=== PATIENT | male | born 1955 | race Caucasian/White ===

== ENCOUNTER → 2016-11-27 | Day surgery (SDC) | payer OTHER ==
--- NOTE | 2016-02-04 15:42 | Anesthesiology Progress Note ---
Anesthesia Progress Note Date of Service Feb 04, 2016. Progress Notes Patient with recent cardiac stent placed 11/16/2015 (drug eluding stent to RCA; 99% occlusion to RCA on cardiac catheterization). Patient currently on Plavix and ASA. Patient is scheduled for screening colonoscopy 02/21/2016. Case was discussed with Dr. Doyle. Would need to wait 365 days from stent placement for elective procedure (screening colonoscopy) unless extenuating circumstances given increased perioperative risks. Clari Ashton PA-C
[2016-11-21 15:09] VITALS: Ht 180.3 cm; Wt 98.6 kg
[~2016-11-27] VITALS: Ht 180.3 cm; Wt 98.6 kg
[~2016-11-27] MED LIST: ASPEC81 PO; ATOR-26 PO; GLIP-197 PO; LIDOCAINE HCL 2% 2 ML VIAL (20MG/ML) ONE; LISI-729 PO; METF-384 PO; MIDAZOLAM HCL 1 MG/ML 2ML VIAL ONE; NTRSLP4 SL; ONDANSETRON INJ 2 MG/ML 2 ML VIAL ONE; PLV75 PO; PROPOFOL IV EMULSION 10 MG/ML 20 ML VIAL IV ONE; SODIUM CHLORIDE 0.9% 500ML 500 ML IV ONE
[2016-11-27 08:12] VITALS: TEMP 36.5
--- NOTE | 2016-11-27 08:35 | Endo History and Physical ---
History & Physical Date of Service: Nov 27, 2016. Chief Complaint: screening Referring Physician: Dr. Cleveland Rodriguez History of Present Illness 61 yo CM who presents for screening colonoscopy. Past Medical History Diabetes, Hypertension Past Surgical History Hx Cardiac Surgery: Yes (HEART CATH-1 STENT) Hx Internal Defibrillator: No Hx Pacemaker: No Hx Abdominal Surgery: No Hx of Implantable Prosthesis: No Hx Post-Op Nausea and Vomiting: No Hx Cancer Surgery: No Hx Thoracic Surgery: No Hx Orthopedic: No Hx Urinary Tract Surgery: Yes (VASECTOMY) Family History None Social History Smoking Status: Current Every Day Smoker Hx Substance Use: No Hx Alcohol Use: No Allergies Coded Allergies: No Known Allergies (Verified , 11/27/16) Current Medications Reported Home Medications Medications Dose Route/Sig Max Daily Dose Days Date Category Glipizide Er (Glipizide) 5 Mg Tab 0.5 Tab PO HS 11/21/16 Reported Zestril (Lisinopril) 5 Mg Tab 5 Mg PO QAM 02/04/16 Reported Glipizide Er (Glipizide) 5 Mg Tab 1 Tab PO QAM 90 02/04/16 Reported Lipitor (Atorvastatin Calcium) 80 Mg Tab 80 Mg PO QPM 02/04/16 Reported Clopidogrel (Clopidogrel Bisulfate) 75 Mg Tab 75 Mg PO QAM 90 11/18/15 Rx Aspirin EC Low Dose (Aspirin) 81 Mg Ectab 81 Mg PO QAM 90 11/18/15 Rx Nitrostat (Nitroglycerin) 0.4 Mg/1 Tab Subl 0.4 Mg SL UD PRN 15 11/18/15 Rx Glucophage (Metformin Hcl) 1,000 Mg Tab 1,000 Mg PO BID 11/16/15 Reported Vital Signs Weight (Kilograms): 98.64 Height (Feet): 5 Height (Inches): 11 Date Time Temp Pulse Resp B/P Pulse Ox O2 Delivery O2 Flow Rate FiO2 11/27/16 08:12 36.5 48 20 151/76 100 Room Air Physical Exam General Appearance: WD/WN, no apparent distress Respiratory/Chest: Auscultation: breath sounds normal Cardiovascular: Heart Auscultation: RRR Abdomen: Bowel Sounds: normal Inspection & Palpation: soft, non-distended, no tenderness, guarding & rebound Assessment and Plan Assessment: 61 yo CM who presents for screening colonoscopy. Plan: Proceed with colonoscopy.
--- NOTE | 2016-11-27 09:01 | Discharge Instructions ---
Endoscopy Patient Instructions Date / Procedure(s) Performed Nov 27, 2016. Colonoscopy Allergy Information Coded Allergies: No Known Allergies (Verified , 11/27/16) Discharge Date / Findings Nov 27, 2016. Colon polyp Internal hemorrhoids Medication Instructions Stopped Medication(s): stopped Plavix last Tuesday 11/21,Metformin stopped Sunday zohra,took ASA yesterday OK to resume all medications today as prescribed Reported Home Medications Medications Dose Route/Sig Max Daily Dose Days Date Category Glipizide Er (Glipizide) 5 Mg Tab 0.5 Tab PO HS 11/21/16 Reported Zestril (Lisinopril) 5 Mg Tab 5 Mg PO QAM 02/04/16 Reported Glipizide Er (Glipizide) 5 Mg Tab 1 Tab PO QAM 90 02/04/16 Reported Lipitor (Atorvastatin Calcium) 80 Mg Tab 80 Mg PO QPM 02/04/16 Reported Clopidogrel (Clopidogrel Bisulfate) 75 Mg Tab 75 Mg PO QAM 90 11/18/15 Rx Aspirin EC Low Dose (Aspirin) 81 Mg Ectab 81 Mg PO QAM 90 11/18/15 Rx Nitrostat (Nitroglycerin) 0.4 Mg/1 Tab Subl 0.4 Mg SL UD PRN 15 11/18/15 Rx Glucophage (Metformin Hcl) 1,000 Mg Tab 1,000 Mg PO BID 11/16/15 Reported Provider Instructions Activity Restrictions - No exercising or heavy lifting for 24 hours. - Do not drink alcohol the day of the procedure. - Do not drive a car or operate machinery until the day after the procedure. - Do not make any important decisions or sign important papers in 24 hours after the procedure. Following Day: - Return to full activity which may include returning to work/school. Diet Start your diet with liquids and light foods (jello, soup, juice, toast). Then eat your usual diet if not nauseated. Treatment For Common After Affects For mild abdominal pain, bloating, or excessive gas: - Rest - Eat lightly - Lie on right side Follow-Up Information Follow-up with Dr. Cleveland Rodriguez as scheduled Anesthesia Information What You Should Know You have had a procedure that required some medicine to reduce anxiety and discomfort. This treatment is called moderate sedation. After receiving the treatment, you may be sleepy, but you will be able to breathe on your own. The effects of the treatment may last for several hours. Follow these instructions along with Activity/Diet recommendations noted above: * Do NOT do anything where dizziness or clumsiness would be dangerous. * Rest quietly at home today, then you can be up and about tomorrow. * Have a responsible person stay with you the rest of today. * You may have had an I.V. today. If so, you may take the dressing off later today. Recommendations Call your doctor if: * Trouble breathing * Continuous vomiting for more than 24 hours * Temperature above 101 degrees * Severe abdominal pain or bloating * Pain not relieved by pain medicine ordered * There is increased drainage or redness from any incision * A large amount of rectal bleeding greater than 2-3 tablespoons. (If you had a polyp/s removed or have hemorrhoids, a small amount of blood - from the rectum is to be expected.) * You have any unanswered questions or concerns. IN THE EVENT OF A SERIOUS EMERGENCY, GO TO THE NEAREST EMERGENCY ROOM Your discharge instructions were prepared by provider Jose Elias Phipps. Patient Instructions Signature Page Cleveland Bowie Patient (or Guardian) Signature/Date: I have read and understand the instructions given to me by my caregivers. Caregiver/RN/Doctor Signature/Date: The above-named patient and/or guardian has received patient instructions on this date. + Original Patient Signature Page (only) stays with chart. Please make copy for patient.
--- NOTE | 2016-11-27 09:22 | Anesthesiology Progress Note ---
Anesthesia Post Op Note Date & Time Nov 27, 2016 at 09:21 Vital Signs Pain Intensity: 0 Vital Signs Past 12 Hours Date Time Temp Pulse Resp B/P Pulse Ox O2 Delivery O2 Flow Rate FiO2 11/27/16 09:19 53 18 117/75 95 Room Air 11/27/16 09:11 51 18 115/62 94 Room Air 11/27/16 09:04 56 18 109/62 94 Room Air 11/27/16 08:12 36.5 48 20 151/76 100 Room Air Notes Mental Status: alert / awake / arousable, participated in evaluation Pt Amnestic to Procedure: Yes Nausea / Vomiting: adequately controlled Pain: adequately controlled Airway Patency, RR, SpO2: stable & adequate BP & HR: stable & adequate Hydration State: stable & adequate Anesthetic Complications: no major complications apparent Pt doing well.
[2016-11-27 09:30] VITALS: BP 135/76; PULSE 50; O2SAT 97
--- NOTE | 2016-11-27 10:43 | GI REPORT ---
Procedure Date: 11/27/2016 8:40 AM Procedure: Colonoscopy Indications: Screening for colorectal malignant neoplasm Medicines: Monitored Anesthesia Care Complications: No immediate complications. Estimated Blood Loss: Estimated blood loss: none. Procedure: Pre-Anesthesia Assessment: - Prior to the procedure, a History and Physical was performed, and patient medications and allergies were reviewed. The patient's tolerance of previous anesthesia was also reviewed. The risks and benefits of the procedure and the sedation options and risks were discussed with the patient. All questions were answered, and informed consent was obtained. Prior Anticoagulants: The patient last took aspirin 1 day and Plavix (clopidogrel) 5 days prior to the procedure. ASA Grade Assessment: III - A patient with severe systemic disease. After reviewing the risks and benefits, the patient was deemed in satisfactory condition to undergo the procedure. After I obtained informed consent, the scope was passed under direct vision. Throughout the procedure, the patient's blood pressure, pulse, and oxygen saturations were monitored continuously. The scope was introduced through the anus and advanced to the terminal ileum. The colonoscopy was performed without difficulty. The patient tolerated the procedure well. The quality of the bowel preparation was good. The terminal ileum, the appendiceal orifice and the rectum were photographed. Findings: A 6 mm polyp was found in the descending colon. The polyp was sessile. The polyp was removed with a hot snare. Resection and retrieval were complete. Non-bleeding internal hemorrhoids were found during retroflexion. The hemorrhoids were small. Impression: - One 6 mm polyp in the descending colon, removed with a hot snare. Resected and retrieved. - Non-bleeding internal hemorrhoids. Recommendation: - Resume previous diet. - Continue present medications. - Repeat colonoscopy for surveillance based on pathology results. - Return to primary care physician as previously scheduled. Jose Elias Phipps DO 11/27/2016 8:59:54 AM This report has been signed electronically. Note Initiated On: 11/27/2016 8:40 AM I attest to the content of the Intraoperative Record and orders documented therein, exceptions below
== END | disposition home or self-care (01) ==
LOC: C.GI 07:46
PROVIDERS: ATTEND Internal Medicine
DX: Z12.11 Encounter for screening for malignant neoplasm of colon (principal); D12.4 Benign neoplasm of descending colon; K64.8 Other hemorrhoids; F17.200 Nicotine dependence, unspecified, uncomplicated; Z79.82 Long term (current) use of aspirin; Z79.899 Other long term (current) drug therapy

== ENCOUNTER → 2017-03-10 | Outpatient (CLI) | payer OTHER ==
[~2017-03-10] MED LIST changes: -LIDOCAINE HCL 2% 2 ML VIAL (20MG/ML) ONE; -MIDAZOLAM HCL 1 MG/ML 2ML VIAL ONE; -ONDANSETRON INJ 2 MG/ML 2 ML VIAL ONE; -PROPOFOL IV EMULSION 10 MG/ML 20 ML VIAL IV ONE; -SODIUM CHLORIDE 0.9% 500ML 500 ML IV ONE
[2017-03-10 11:03] LABS: HEMATOCRIT 48.5 % (42-52); MEAN CELL VOLUME 96.2 fL (80-100); MEAN CORPUSCULAR HEMOGLOBIN 31.5 pg (25-34); MEAN CORPUSCULAR HGB CONC 32.8 g/dl (32-36); MEAN PLATELET VOLUME 10.1 fL (7.4-10.4); PLATELET COUNT 251 K/uL (130-400); RED BLOOD COUNT 5.04 M/uL (4.7-6.1); WHITE BLOOD COUNT 10.52 K/uL (4.8-10.8)
[2017-03-10 11:14] LABS: ALT/SGPT 56 U/L (12-78); AST/SGOT 25 U/L (15-37); BLOOD UREA NITROGEN 21 mg/dl (7-18); BUN/CREATININE RATIO 17.2 (10-20); CALCIUM 8.8 mg/dl (8.5-10.1); CARBON DIOXIDE 27 mmol/L (21-32); CHLORIDE 106 mmol/L (98-107); GLUCOSE 154 mg/dl (70-99); POTASSIUM 4.5 mmol/L (3.5-5.1); SODIUM 138 mmol/L (136-145)
[2017-03-10 11:17] LABS: ALB/GLOB RATIO 1.3 (0.9-2); ALKALINE PHOSPHATASE 108 U/L (45-117); CHOLESTEROL 98 mg/dl (0-200); CHOLESTEROL/HDL RATIO 3.4; ESTIMATED AVERAGE GLUCOSE 169 mg/dl; HA1C FLAG Normal (Normal); HDL CHOLESTEROL 29 mg/dl; LDL CHOLESTEROL CALCULATED 43 mg/dl; TRIGLYCERIDES 131 mg/dl (0-150); VERY LOW DENSITY LIPOPROT CALC 26 mg/dl
[2017-03-10 11:35] LABS: RATIO 53.7 mcg/mg (0-30.0)
== END | disposition home or self-care (01) ==
LOC: C.LABBC 08:30
PROVIDERS: ATTEND Internal Medicine
DX: Z00.00 Encounter for general adult medical examination without abnormal findings (principal); E11.9 Type 2 diabetes mellitus without complications; E78.5 Hyperlipidemia, unspecified

== ENCOUNTER 2017-10-10 15:15 | Emergency (ER) | payer OTHER ==
[~2017-10-10] VITALS: Ht 180.3 cm; Wt 103.1 kg
[2017-10-10 15:25] VITALS: Ht 180.3 cm; Wt 103.1 kg
[2017-10-10] MEDS ORDERED: CLOP1TAB15 PO (16:00)
[2017-10-10] MEDS ORDERED: XYLOCAINE 1%/SOD BICARB 20 ML VIAL INFIL ONE (16:00)
[2017-10-10] MEDS ORDERED: DIPHTHERIA/TETANUS/PERTUSSIS 0.5 ML SYR/VIAL IM. ONE (16:00)
[2017-10-10] MEDS ORDERED: GLC5 PO ×2 (16:00)
[2017-10-10] MEDS ORDERED: LSN5 PO (16:00)
[2017-10-10] MEDS ORDERED: ASPI81TA28 PO (16:01)
[2017-10-10] MEDS ORDERED: NTRGSL/4 UT (16:01)
--- NOTE | 2017-10-10 16:24 | EMERGENCY ROOM VISIT NOTE ---
History First contact with patient: 15:29 Chief Complaint: LACERATION/CUT (SUT/DERMABOND) Stated Complaint: LEFT ARM LACERATION History of Present Illness The patient is a 62 year old male who presents to the Emergency Room with complaints of a left forearm laceration. The patient accidentally cut his arm with a miter saw at work. The injury occurred at approximately 3 PM, or one half hour prior to arrival. The patient is uncertain of his last tetanus immunization. He denies any loss of function, paresthesias or numbness of the left upper extremity. The patient is [id number]. Review of Systems 6 system review was performed and was negative except for pertinent positives and negatives as indicated in history of present illness Past Medical/Surgical History Medical Problems: (1) Acute inferior myocardial infarction (2) No active medical problems Family History FH: dialysis FH: kidney disease FHx: heart disease Social History Smoking Status: Current Every Day Smoker Marital Status: single Housing Status: lives with family Occupation Status: employed Current/Historical Medications Scheduled Aspirin (Aspirin Ec), 81 MG PO QAM Atorvastatin (Lipitor), 80 MG PO QPM Clopidogrel (Plavix), 75 MG PO QAM Glipizide (Glipizide), 5 MG PO QAM Glipizide (Glipizide), 2.5 MG PO HS Lisinopril (Lisinopril), 5 MG PO QAM Metformin Hcl (Glucophage), 1,000 MG PO BID Scheduled PRN Nitroglycerin (Nitrostat), 0.4 MG UT UD PRN for Chest Pain Physical Exam Vital Signs Date Time Temp Pulse Resp B/P (MAP) Pulse Ox O2 Delivery O2 Flow Rate FiO2 18 15:25 36.6 72 16 128/72 98 Room Air Physical Exam CONSTITUTIONAL: Healthy and well nourished. Alert and oriented X 3 with positive affect. HEENT: Normocephalic, atraumatic. Pupils equal, round and reactive. NECK: Full active range of motion without discomfort. MUSCULOSKELETAL: Examination of the dorsal and distal left forearm region shows a 3 cm linear laceration without active bleeding or hematoma formation. Patient has good extensor tendon effort, and the laceration does not appear to extend deep into the forearm. Capillary refill of the fingers is less than 2 seconds. INTEGUMENTARY: No rash or other significant dermatologic conditions noted. NEUROLOGIC: No focal neurologic deficits noted. Left hand and fingers are sensory intact. Medical Decision & Procedures Procedure Laceration repair was performed by our physician animal care assistant student under my direct supervision. The patient also provided verbal consent for laceration repair under local anesthesia. Using buffered 1% lidocaine without epinephrine , good local anesthesia was administered. The wound was then peripherally cleansed with iodine, then irrigated with normal saline. Exploration of the wound does not show any penetration into the underlying musculature, tendons or bone. The wound was then approximated using 4-0 nylon simple interrupted sutures. A bacitracin dressing was applied. ED Course Patient history and physical exam were performed. Nurse's notes were reviewed. Vital signs were reviewed and were normal. Laceration repair was performed under local anesthesia. The patient was also administered Adacel IM. The patient was provided additional verbal and written wound care instructions. Ice and elevation for swelling. Tylenol as needed for pain. Suture removal in 12-14 days, returning sooner for any signs of wound infection. The patient was happy with plan of care, voiced understanding of all discharge instructions, and denied any pain at the time of discharge. Medical Decision Medication Reconcilliation Current Medication List: was personally reviewed by tn Blood Pressure Screening Patient's blood pressure: Normal blood pressure Impression Primary Impression: Laceration of left forearm Additional Impression: Work related injury Departure Information Dispostion Home / Self-Care Forms HOME CARE DOCUMENTATION FORM, IMPORTANT VISIT INFORMATION Patient Instructions My [facility] Additional Instructions Keep wound clean and dry. Do not allow any crusting or dried blood to accumulate on sutures. If this occurs, use a 1:1 solution of hydrogen peroxide/ water on a Q-tip to clean the wound. Use an antibiotic ointment for 3-4 days, then let wound dry. Suture removal in 12-14 days. Return sooner for any signs of infection (increasing redness, swelling, drainage). Ice and elevate for swelling and pain. Tylenol 1000 mg every 6 hrs if needed for pain. Problem Qualifiers Primary Impression: Laceration of left forearm Encounter type: initial encounter Qualified Codes: S51.812A - Laceration without foreign body of left forearm, initial encounter
[2017-10-10 16:39] VITALS: BP 128/72; PULSE 72; TEMP 36.6; O2SAT 98
== END 2017-10-10 16:40 | disposition home or self-care (01) ==
LOC: C.EDB 15:16 → C.EDD 16:40
DX: S51.812A Laceration without foreign body of left forearm, initial encounter (principal); W27.0XXA Contact with workbench tool, initial encounter; Y99.0 Civilian activity done for income or pay; Y92.89 Other specified places as the place of occurrence of the external cause; Y93.89 Activity, other specified; I25.2 Old myocardial infarction; F17.210 Nicotine dependence, cigarettes, uncomplicated; Z79.82 Long term (current) use of aspirin; Z79.84 Long term (current) use of oral hypoglycemic drugs; Z79.899 Other long term (current) drug therapy; Z23 Encounter for immunization

== ENCOUNTER 2017-10-24 07:15 | Emergency (ER) | payer OTHER ==
[~2017-10-24] VITALS: Ht 180.3 cm; Wt 104.9 kg
[~2017-10-24 07:15] MED LIST changes: -ASPEC81 PO; +ASPI81TA28 PO; +CLOP1TAB15 PO; +GLC5 PO; -GLIP-197 PO; -LISI-729 PO; +LSN5 PO; +NTRGSL/4 UT; -NTRSLP4 SL; -PLV75 PO
[2017-10-24 07:28] VITALS: BP 174/82; PULSE 66; TEMP 36.5; O2SAT 99; Ht 180.3 cm; Wt 104.9 kg
--- NOTE | 2017-10-24 07:41 | EMERGENCY ROOM VISIT NOTE ---
ED Visit Note First contact with patient: 07:32 CHIEF COMPLAINT: Suture removal This patient returns to the ED today for removal of sutures that were placed 14 days ago. There has been no swelling, or drainage from the wound. The patient feels like the laceration is healing well. He does note minimal erythema on the forearm surrounding the sutures which has been present since the placement. REVIEW OF SYSTEMS: A complete 6-point Review of Systems was discussed with the patient, with pertinent positives and negatives listed in the History of Present Illness. All remaining Review of Systems questions can be considered negative unless otherwise specified. PMH: The patient is healthy; there is no significant medical or surgical history. SOCIAL HISTORY: Patient lives at home. PHYSICAL EXAM: Vital Signs: Reviewed Nurse's notes. There is a sutured wound on the left forearm with no signs of infection. There is no swelling, or tenderness. Minimal erythema surrounding the sutures. EMERGENCY DEPARTMENT COURSE: The sutures were removed without any difficulty and there was no separation of the wound edges. I suspect that the erythema is likely skin irritation. There is no purulence. There is no tenderness. I did inform the patient to please watch and if the redness is to progress or not any better he is to return or follow with the family doctor for potential initiation of antibiotics in the event that it could be cellulitis. The wound was covered. He was discharged. He is to follow with his family doctor regarding his elevated blood pressure here today. Problem List Medical Problems: (1) No active medical problems Status: Chronic Current/Historical Medications Scheduled Aspirin (Aspirin Ec), 81 MG PO QAM Atorvastatin (Lipitor), 80 MG PO QPM Clopidogrel (Plavix), 75 MG PO QAM Glipizide (Glipizide), 5 MG PO QAM Glipizide (Glipizide), 2.5 MG PO HS Lisinopril (Lisinopril), 5 MG PO QAM Metformin Hcl (Glucophage), 1,000 MG PO BID Scheduled PRN Nitroglycerin (Nitrostat), 0.4 MG UT UD PRN for Chest Pain Allergies Coded Allergies: No Known Allergies (Verified , 10/24/17) Vital Signs Date Time Temp Pulse Resp B/P (MAP) Pulse Ox O2 Delivery O2 Flow Rate FiO2 10/24/17 07:28 36.5 66 18 174/82 99 Room Air Departure Information Impression Primary Impression: Encounter for removal of sutures Dispostion Home / Self-Care Condition GOOD Referrals No Doctor, Assigned (PCP) Patient Instructions [facility] Additional Instructions You may resume normal activities. I do recommend watching the blood pressure as it is elevated here today. Please call your family doctor to schedule follow-up. Please keep the wound dry. Please watch for worsening redness. If this persists an antibiotic may be necessary. Please either return or call your family doctor. Please return with any new/concerning symptoms.
== END 2017-10-24 07:50 | disposition home or self-care (01) ==
LOC: C.EDB 07:16
DX: S51.812D Laceration without foreign body of left forearm, subsequent encounter (principal); X58.XXXD Exposure to other specified factors, subsequent encounter; Z79.82 Long term (current) use of aspirin; Z79.84 Long term (current) use of oral hypoglycemic drugs

== ENCOUNTER 2019-11-05 07:10 | Observation (INO) ==
[2019-11-05] MEDS ORDERED: SODIUM CHLORIDE 0.9% 1000ML 1,000 ML IV SCH (07:30)
[2019-11-05 07:38] LABS: Basophils # (auto) 0.02 K/uL (0-0.2); Basophils % (auto) 0.2 %; Eosinophils % (auto) 0.8 %; Hematocrit (blood only) 46.6 % (42-52); Hemoglobin 15.5 g/dL (14.0-18.0); Immature Granulocytes # (auto) 0.03 K/uL (0.00-0.02); Immature Granulocytes % (auto) 0.2 %; Lymphocytes # (auto) 0.59 K/uL (1.2-3.4); Lymphocytes % (auto) 4.6 %; Mean Corpuscular Hgb Conc 33.3 g/dL (32-36); Mean Corpuscular Volume 90.1 fL (80-100); Monocytes # (auto) 0.28 K/uL (0.11-0.59); Monocytes % (auto) 2.2 %; Neutrophils # (auto) 11.93 K/uL (1.4-6.5); Platelet Count 173 K/uL (130-400); RDW Coefficient of Variation 14.7 % (11.5-14.5); RDW Standard Deviation 48.9 fL (36.4-46.3); Red Blood Count 5.17 M/uL (4.7-6.1); White Blood Count 12.95 K/uL (4.8-10.8)
--- NOTE | 2019-11-05 07:42 | XRay Report ---
SINGLE VIEW CHEST CLINICAL HISTORY: Generalized weakness. FINDINGS: An AP, portable, upright chest radiograph is compared to study dated 03/10/2018. The examina tion is degraded by portable technique and patient rotation. The heart is enlarged. The pulmonary v asculature is noncongested. There is chronic elevation of the left hemidiaphragm with associated atel ectasis. The lungs and pleural spaces are otherwise clear. No pneumothorax is seen. The skeletal stru ctures are osteopenic. The bony thorax is grossly intact. IMPRESSION: Cardiomegaly with no acute cardiopulmonary abnormality. ACT 112: Negative or not required by law. Electronically signed by: Sesar Carter M.D. 11/05/2019 7:41 AM
[2019-11-05 07:47] LABS: INR 1.3 (0.9-1.1); Prothrombin Time 13.7 Seconds (9.0-12.0)
[2019-11-05 07:57] LABS: Alanine Aminotransferase 36 U/L (12-78); Albumin Level 3.3 gm/dl (3.4-5.0); Aspartate Aminotransferase 18 U/L (15-37); BUN Creatinine Ratio 19.8 (10-20); Blood Urea Nitrogen 26 mg/dl (7-18); Calcium 8.7 mg/dl (8.5-10.1); Carbon Dioxide 24 mmol/L (21-32); Chloride 104 mmol/L (98-107); Creatinine Clr Calc Pharmacy 70.9 ml/min; Est GFR (African American) 67.2; Est GFR (Non-African American) 57.9; Potassium 4.9 mmol/L (3.5-5.1); Sodium 136 mmol/L (136-145)
[2019-11-05 08:05] LABS: Alkaline Phosphatase 122 U/L (45-117); Bilirubin,Total 0.5 mg/dl (0.2-1); Globulin 3.2 gm/dl (2.5-4.0); Glucose 335 mg/dl (70-99); Lipase 358 U/L (73-393); Total Protein 6.5 gm/dl (6.4-8.2); Troponin I < 0.015 ng/ml (0-0.045)
[2019-11-05] MEDS ORDERED: IOVERSOL 100ml IV PRN (08:12)
[2019-11-05 08:19] LABS: Beta-Hydroxybutyrate 1.29 mg/dl (0.2-2.81)
--- NOTE | 2019-11-05 08:32 | CT Scan Report ---
CT abd pelvis IV con only CLINICAL HISTORY: Nausea, vomiting, diarrhea COMPARISON STUDY: None. TECHNIQUE: The patient was scanned in a dynamic helical fashion during intravenous administration of 92 cc of Optiray 320 A dose lowering technique was utilized adhering to the principles of ALARA. CT DOSE: 1023.91 mGy.cm FINDINGS: Lower chest: There is elevation of the left hemidiaphragm. There are minor right basilar atelectatic changes Liver: The contrast-enhanced liver is normal in size, contour, and attenuation. There is no intrahepa tic biliary ductal dilatation. The hepatic veins and portal veins are patent. Gallbladder: Unremarkable. Spleen: Normal in size and attenuation. Pancreas: Unremarkable. Adrenal glands: Unremarkable. Kidneys: There is symmetric renal cortical enhancement. The kidneys are normal in size without hydron ephrosis. Bowel: There are no transition zones indicate bowel obstruction. There are borderline dilated jejunal loops with borderline wall thickening. An enteritis cannot be excluded. There is no evidence of acut e appendicitis. There is no evidence of acute diverticulitis. Peritoneum: There is no intraperitoneal free air or abdominal ascites. There are fat-containing ingui nal hernias versus lipomatous inguinal canals Vasculature: There is ectasia of the infrarenal abdominal aorta which measures 26 mm in diameter Adenopathy: None. Pelvic viscera: The bladder, and pelvic viscera are unremarkable. Skeletal structures: No destructive osseous lesions are seen. IMPRESSION: 1. No evidence of bowel obstruction. No evidence of free air 2. No evidence of acute appendicitis. No evidence of acute diverticulitis 3. Borderline dilated jejunal loops with borderline wall thickening. An enteritis cannot be excluded. ACT 112: Negative or not required by law. Electronically signed by: Minh Velasquez M.D. 11/05/2019 8:31 AM
[2019-11-05 08:39] LABS: Appearance Urine Clear (Clear); Bacteria Urine Automated Negative (Negative); Bilirubin Urine Negative (Negative); Blood Urine Negative (Negative); Cast Urine Automated 0 /lpf (0-5); Color Urine Yellow; Epithelial Cell Urine Auto 0-5 /lpf (0-5); Glucose Urine UA 3+ (Negative); Ketones Urine Negative (Negative); Leukocyte Esterase Urine Negative (Negative); Nitrite Urine Negative (Negative); Protein Urine Trace (Negative); RBC Urine Automated 0-4 /hpf (0-4); Specific Gravity Urine 1.031 (1.000-1.030); Urobilinogen Urine Negative (Negative); WBC Urine Automated 0 /hpf (0-5)
--- NOTE | 2019-11-05 10:59 | History & Physical Report ---
Date of Service November 05, 2019 Assessment & Plan (1) Diarrhea: 64-year-old male was admitted on 05 November 2019 for acute diarrhea, dehydration, and hyperglycemia. Diarrhea, dehydration: Acute onset overnight. Non-bloody diarrhea. Denies associated chest or abdominal pain. Non-tender abdominal exam. Most likely a viral enteritis. Does have a little tachypnea without overt pulmonary findings. - In ED, afebrile, initially tachycardic and tachypneic, normotensive, normal room SpO2. WBC 13, electrolytes okay. UA SG is 1.031. pCXR read as cardiomegaly only (with some chronic findings). CT a/p read as possible enteritis without other acute findings. - In ED, treated with 1 L normal saline. - Will continue with judicious IVF repletion given his heart history. Continue p.o. intake as well, though discussed with patient he will need to modify his p.o. intake in the longer term given his known heart failure. Recheck labs in a.m. If does well, perhaps can be d/c in time for his cardiology appt around 11 am. Elevated creatinine, Likely CKD: Not listed in his PMH, though admit creatinine 1.31. September 2019 comparisons around 1.5. Is on Lisinopril. Diabetes type 2, hyperglycemia: Reportedly previously declined outpatient insulin. At home is on metformin and glipizide. 04Feb HbA1c 9.8. ED random glucose 335. Bicarb 24, anion gap 8. - Placed on insulin sliding scale for now. Needs continued diabetic education. Elevated alk phos: Admit alk phos 122, similar to last month. Remaining LFTs normal. No reports of RUQ pain. Monitor for now. Ongoing medical issues: - HTN, HLD, CAD, dilated cardiomyopathy, inferior STEMI with TALISHA: Echocardiogram on 07Oct2019 noted EF 20-25%, severe LVSF, left ventricular global hypokinesis, amongst other findings. Continue home aspirin, atorvastatin, lisinopril, metoprolol. - Persistent atrial fibrillation / flutter: Underwent cardioversion on . ED EKG was A. fib, rate 101. Continue home Xarelto and metoprolol. Code status: Full code. Diet: Heart healthy, low-sodium, diabetic type II. DVT prophy: Xarelto. PT/OT: Deferred. Disbo: Admit to [facility] for observation. (2) Dehydration: (3) Elevated serum creatinine: (4) Diabetes mellitus, type II: (5) Hyperglycemia due to type 2 diabetes mellitus: (6) Elevated alkaline phosphatase level: (7) Hypertension: (8) Dyslipidemia: (9) Coronary artery disease: (10) Dilated cardiomyopathy: (11) History of ST elevation myocardial infarction (STEMI): (12) Atrial fibrillation: History of Present Illness Primary Care Provider: NO PCP 64-year-old male states overnight he developed the acute onset of some nausea, dry heaves, and 4-5 bouts of watery non-bloody diarrhea. Yesterday he says he was asymptomatic. He denies any known recent sick contacts, recent travel, antibiotic use, or changes in his diet. Very early this morning he says he felt a little short of breath with all the symptoms but that has since resolved. Denies any chest pain throughout this time. At times he says both of his legs feel little numb but that also has improved. He does feel like he is a little dehydrated at present. Otherwise, denies any other acute concerns. As a side note, he does wonder when he may have gone back into A. fib after his recent cardioversion on October 27. He also says that he only controls his diabetes with p.o. meds and has never taken insulin. Lastly, he says he has a planned appointment with Dr. Sheppard (cardiology) for tomorrow morning around 11 AM and would like to be able to keep that appointment. - Past medical history includes hypertension, hyperlipidemia, coronary disease, dilated cardiomyopathy, inferior STEMI, persistent atrial fibrillation, diabetes type 2, rhabdomyolysis, tubular adenoma. - Past surgical history includes vasectomy, colonoscopy, and cardiac stenting. - Social history includes smoking 1 pack/day for over 40 years. Denies alcohol use. Lives at home with family. Works at [employer]. Allergies Allergy/AdvReac Type Severity Reaction Status Date / Time No Known Allergies Allergy Verified 11/05/19 08:05 Home Medications Home Medications Medication Instructions Recorded Confirmed Type Lactobacillus 1 cap PO QDB cap 04/07/19 11/05/19 History acidophilus-Bifidobac.animalis 31 billion cell capsule aspirin 81 mg tablet,delayed 81 mg PO QDB #30 tab 04/07/19 11/05/19 History release blood-glucose meter #1 ea 04/07/19 10/21/19 History metformin 1,000 mg tablet 1,000 mg PO BIDM #180 tab 04/07/19 11/05/19 History nitroglycerin 0.4 mg sublingual 0.4 mg SL Q5M PRN #25 tab 04/07/19 11/05/19 History tablet blood sugar diagnostic #50 ea 09/16/19 10/21/19 Rx lancets 30 gauge #300 ea 09/16/19 10/21/19 Rx Xarelto 20 mg PO QDD 10/23/19 11/05/19 History metoprolol succinate 50 mg PO QDB 10/23/19 11/05/19 History glipizide 10 mg tablet 10 mg PO BID #60 tab 10/30/19 11/05/19 Rx atorvastatin 80 mg PO QDD 11/05/19 11/05/19 History lisinopril 5 mg PO QDB 11/05/19 11/05/19 History metoprolol succinate 25 mg PO QDD 11/05/19 11/05/19 History Past Med/Surg History Medical History Atrial fibrillation dx 08/2019 CHF (congestive heart failure) EF 20-25% Coronary artery disease 2016 (stent x1) Diabetes mellitus, type II Dilated cardiomyopathy Dyslipidemia Hypertension Myocardial infarct Palpitation Surgical History History of cardiac cath 2016 (stent x 1) History of colonoscopy Hx of vasectomy Family History Father Myocardial infarction Denies family history of Ovarian cancer Prostate cancer Breast cancer Lung cancer Colorectal cancer Stroke Social History Preferred Language: Monegasque Communication Ability: Effective Visual Impairment: No Limitations Hearing Ability: Normal Cemetery Warden Required: No Beliefs That Will Affect Care: None Current Living Situation: Parent current occupational status: employed Other Information That Helps Us Care for You: No Feels Safe at Home: Yes Safety Concerns: Feels Safe At This Time Smoking Status: Current every day smoker Tobacco Type: cigarettes ; Age Started Using Tobacco: 19 ; packs per day: 1 ; Cigarettes Per Day: 20 ; Second Hand Exposure: Yes ; Hx Alcohol Use: No Hx Substance Use: Yes substance use type: marijuana Substance Use Type Other:: MARIJUANA A FEW TIMES PER WEEK Last Used Substance: Days (ago) Review of Systems Review of Systems: Constitutional: Denies fevers, chills, focal weakness Eyes: Denies any visual loss or diplopia ENT: Denies any ear/nose/throat pain or difficulty speaking or swallowing Respiratory: Transient dyspnea and dry cough. Cardiovascular: Denies any chest pain or feeling of edema Gastrointestinal: Positive nausea, dry heaves, and diarrhea. Denies abdominal pain. Musculoskeletal: Denies any acute extremity pains, myalgias, or focal weakness Skin: Denies any known acute rashes or lesions Neuro: Denies any headache, acute focal weakness or numbness, or difficulties with speech or swallow. Physical Exam Physical Exam: GENERAL: Awake, alert, well-appearing, in no acute distress HENT: Normocephalic, atraumatic. Oropharynx has dry oral mucous membranes. EYES: Normal conjunctiva. Sclera non-icteric. NECK: Inspection normal. Supple and full ROM. No nuchal rigidity. CARDIAC: +S1S2 irregularly irregular, no murmurs. RESPIRATORY: Clear to auscultation. No wheezes or rales. Normal respiratory effort. No present cough in room GI: +BS, soft, non-distended. No tenderness to palpation. No rebound or guarding. EXTREMITIES: No pedal edema or calf tenderness. Moving all extremities naturally and easily. Some chronic skin changes over his bilateral shins. NEURO: No gross neuro deficits. Constitutional: WD/WN, vitals as above Eyes: normal visual narvaez by confrontation and + anicteric sclerae Neck: normal visual inspection and trachea midline Respiratory: normal respiratory effort, lungs clear to auscultation Cardiovascular: Rate/Rhythm: + irregularly irregular Gastrointestinal (Abdomen): Inspection/Auscultation: abdomen not distended Percussion/Palpation: abdomen soft; abdomen nontender Musculoskeletal: Head/Neck/Chest: normocephalic and head atraumatic Neg for peripheral LE edema, + pedal pulses Skin: no rashes, warm and dry Neurologic: awake; not confused Speech / Cognition: normal speech Psychiatric: A+Ox3, euthymic affect Lymphatic: Exam as done by Pati Menendez DO Results & Data Vital Signs (Past 12 Hours) Vital Signs Temp Pulse Resp BP Pulse Ox 11/05/19 10:30 103 H 30 H 99/67 L 97 11/05/19 10:04 101 H 30 H 123/80 96 11/05/19 09:30 101 H 28 H 118/63 98 11/05/19 08:43 98 H 28 H 112/68 95 11/05/19 07:20 97 11/05/19 07:16 36.6 C 115 H 30 H 110/86 98 11/05/19 07:13 103 H 21 110/86 Laboratory Results 11/05/19 11/05/19 11/05/19 Range/Units 09:18 08:25 07:28 WBC 12.95 H (4.8-10.8) K/uL RBC 5.17 (4.7-6.1) M/uL Hgb 15.5 (14.0-18.0) g/dL Hct 46.6 (42-52) % MCV 90.1 (80-100) fL MCH 30.0 (25-34) pg MCHC 33.3 (32-36) g/dL RDW Std Deviation 48.9 H (36.4-46.3) fL RDW Coeff of Bety 14.7 H (11.5-14.5) % Plt Count 173 (130-400) K/uL MPV 10.0 (7.4-10.4) fL Immature Gran % (Auto) 0.2 % Neut % (Auto) 92.0 % Lymph % (Auto) 4.6 % [place] % (Auto) 2.2 % Eos % (Auto) 0.8 % Baso % (Auto) 0.2 % Immature Gran # (Auto) 0.03 H (0.00-0.02) K/uL Neut # (Auto) 11.93 H (1.4-6.5) K/uL Lymph # (Auto) 0.59 L (1.2-3.4) K/uL [place] # (Auto) 0.28 (0.11-0.59) K/uL Eos # (Auto) 0.10 (0-0.5) K/uL Baso # (Auto) 0.02 (0-0.2) K/uL PT (9.0-12.0) Seconds INR (0.9-1.1) Sodium (136-145) mmol/L Potassium (3.5-5.1) mmol/L Chloride (98-107) mmol/L Carbon Dioxide (21-32) mmol/L Anion Gap (3-11) BUN (7-18) mg/dl Creatinine (0.6-1.4) mg/dl Est Cr Clr Drug Dosing ml/min Est GFR ( Amer) Est GFR (Non-Af Amer) BUN/Creatinine Ratio (10-20) Glucose (70-99) mg/dl POC Glucose 280 H (70-99) mg/dl Calcium (8.5-10.1) mg/dl Total Bilirubin (0.2-1) mg/dl AST (15-37) U/L ALT (12-78) U/L Alkaline Phosphatase (45-117) U/L Troponin I (0-0.045) ng/ml Total Protein (6.4-8.2) gm/dl Albumin (3.4-5.0) gm/dl Globulin (2.5-4.0) gm/dl Albumin/Globulin Ratio (0.9-2) Lipase (73-393) U/L Beta-Hydroxybutyric Acd (0.2-2.81) mg/dl Urine Color Yellow Urine Appearance Clear (Clear) Urine pH 5.0 (4.5-7.5) Ur Specific [place] 1.031 H (1.000-1.030) Urine Protein Trace H (Negative) Urine Glucose (UA) 3+ H (Negative) Urine Ketones Negative (Negative) Urine Blood Negative (Negative) Urine Nitrite Negative (Negative) Urine Bilirubin Negative (Negative) Urine Urobilinogen Negative (Negative) Ur Leukocyte Esterase Negative (Negative) Urine WBC (Auto) 0 (0-5) /hpf Urine RBC (Auto) 0-4 (0-4) /hpf U Hyaline Cast (Auto) 0 (0-5) /lpf U Epithel Cells (Auto) 0-5 (0-5) /lpf Urine Bacteria (Auto) Negative (Negative) 11/05/19 11/05/19 Range/Units 07:28 07:28 WBC (4.8-10.8) K/uL RBC (4.7-6.1) M/uL Hgb (14.0-18.0) g/dL Hct (42-52) % MCV (80-100) fL MCH (25-34) pg MCHC (32-36) g/dL RDW Std Deviation (36.4-46.3) fL RDW Coeff of Bety (11.5-14.5) % Plt Count (130-400) K/uL MPV (7.4-10.4) fL Immature Gran % (Auto) % Neut % (Auto) % Lymph % (Auto) % [place] % (Auto) % Eos % (Auto) % Baso % (Auto) % Immature Gran # (Auto) (0.00-0.02) K/uL Neut # (Auto) (1.4-6.5) K/uL Lymph # (Auto) (1.2-3.4) K/uL [place] # (Auto) (0.11-0.59) K/uL Eos # (Auto) (0-0.5) K/uL Baso # (Auto) (0-0.2) K/uL PT 13.7 H (9.0-12.0) Seconds INR 1.3 H (0.9-1.1) Sodium 136 (136-145) mmol/L Potassium 4.9 (3.5-5.1) mmol/L Chloride 104 (98-107) mmol/L Carbon Dioxide 24 (21-32) mmol/L Anion Gap 8.0 (3-11) BUN 26 H (7-18) mg/dl Creatinine 1.31 (0.6-1.4) mg/dl Est Cr Clr Drug Dosing 70.9 ml/min Est GFR ( Amer) 67.2 Est GFR (Non-Af Amer) 57.9 BUN/Creatinine Ratio 19.8 (10-20) Glucose 335 H* (70-99) mg/dl POC Glucose (70-99) mg/dl Calcium 8.7 (8.5-10.1) mg/dl Total Bilirubin 0.5 (0.2-1) mg/dl AST 18 (15-37) U/L ALT 36 (12-78) U/L Alkaline Phosphatase 122 H (45-117) U/L Troponin I < 0.015 (0-0.045) ng/ml Total Protein 6.5 (6.4-8.2) gm/dl Albumin 3.3 L (3.4-5.0) gm/dl Globulin 3.2 (2.5-4.0) gm/dl Albumin/Globulin Ratio 1.0 (0.9-2) Lipase 358 (73-393) U/L Beta-Hydroxybutyric Acd 1.29 (0.2-2.81) mg/dl Urine Color Urine Appearance (Clear) Urine pH (4.5-7.5) Ur Specific [place] (1.000-1.030) Urine Protein (Negative) Urine Glucose (UA) (Negative) Urine Ketones (Negative) Urine Blood (Negative) Urine Nitrite (Negative) Urine Bilirubin (Negative) Urine Urobilinogen (Negative) Ur Leukocyte Esterase (Negative) Urine WBC (Auto) (0-5) /hpf Urine RBC (Auto) (0-4) /hpf U Hyaline Cast (Auto) (0-5) /lpf U Epithel Cells (Auto) (0-5) /lpf Urine Bacteria (Auto) (Negative) Medications Administered Ioversol (Optiray 320 100ml) 93 ml IV ONCE PRN PRN Reason: Interaction Checking Stop: 11/09/19 08:11 Last Admin: 11/05/19 08:13 Dose: 93 ml Documented by: [id number] Discontinued Medications Sodium Chloride (Nss 1000ml) 1,000 mls @ 999 mls/hr IV .Q1H1M KOFFI Stop: 11/05/19 08:30 Last Infusion: 11/05/19 08:08 Dose: 0 mls/hr Documented by: [id number] Admin: 11/05/19 07:30 Dose: 999 mls/hr Documented by: [id number] Code Status & VTE Plan Code Status Full code VTE Prophylaxis Plan VTE Prophylaxis will be ordered: Yes Supervising Physician Co-Signing Physician Notes Pt seen and examined by me. Denies chest pain or SOB. Tolerating PO without issue recently, but did have dry heaves at one point. Diarrhea has resolved, but still feeling unwell overall. Agree with HPI/ROS as noted by resident See above for my exam in PE section Agree with plan as outlined above Dehydration related to viral GE Monitor on gentle IVF to avoid fluid overload Pt states recent hx of short course of diuretic end of Sep/beginning of October due to LE swelling. He lost 10 lbs with this. He is to have f/u for this with Dr. Sheppard on 11/05 at 11a and would like to make this appt if d/c'd. No chronic diuretic use with EF 20-25% SSI PRN, has decline outpt use of insulin in the past Cardioversion on 10/27, but now back in afib, monitor Andrés Resident Activity Tracking Resident Involvement: Resident Care Provided Care Provided: Adult Hospital Medicine
[2019-11-05] MEDS ORDERED: DEXTROSE 50% 50 ML SYRINGE IV PRN (12:22)
[2019-11-05] MEDS ORDERED: GLUCOSE 10 TABS/TUBE PO PRN (12:22)
[2019-11-05] MEDS ORDERED: CARBOHYDRATES FOR HYPOGLYCEMIA PO PRN (12:22)
[2019-11-05] MEDS ORDERED: GLUCOSE 40% GEL 15 GM TUBE PO PRN (12:22)
[2019-11-05] MEDS ORDERED: NITROGLYCERIN SL 0.4 MG/TAB TAB SL PRN (12:22)
[2019-11-05] MEDS ORDERED: GLUCAGON FOR INJ 1 MG VIAL SQ PRN (12:22)
[2019-11-05] MEDS ORDERED: ONDANSETRON INJ 2 MG/ML 2 ML VIAL IV PRN (12:22)
[2019-11-05] MEDS: LACTATED RINGER'S 1,000 ML IV SCH (12:30)
--- NOTE | 2019-11-05 12:48 | Emergency Department Note ---
Entered by Deanne Lopez acting as a scribe for History of Present Illness General Chief complaint: Syncope (Near Syncope) Stated complaint: syncope Time Seen by Provider: 11/05/19 07:10 Source: patient Mode of arrival: EMS History of Present Illness Onset (ago): hour(s) (0600 this morning) Location: head (near syncope) Severity: similar to prior episodes Pain Consistency: + other (episode) Quality: + other (near syncope) Relieved By: + rest Associated symptoms: + diaphoresis, + nausea/vomiting (Positive nausea. Negative vomiting. ), + shortness of breath and + other (Positive light headed, diarrhea, extrmeity weakness. Negative abdominal pain, dysuria.); no chest pain and no syncope Treatments prior to arrival: other (Nitroglycerin) The patient is a 64 year old male presenting to the Emergency Department via EMS complaining of an episode of near syncope occurring at 0600 this morning. The patient reports that he woke up, went to the bathroom and felt like he was going to lose consciousness. He states that he was lighted and short of breath at that time so he went and sat on his bed to rest. He explains that resting resolved his shortness of breath and that he didnt lose consciousness. He notes that he then began to dry heave and felt nauseous. He adds that all of his extremities feel weak. The patient reports that he woke up throughout the night 4 times and experienced diarrhea. He states that his shortness of breath was similar to what he experienced in 2015 when he had a heart attack. 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 He notes that he smokes cigarettes daily and has a chronic cough. He adds that he hasnt been around any individuals who are sick. The patient denies vomiting, chest pain, abdominal pain, dysuria and recent travel. Home Medications Home Medications Medication Instructions Recorded Confirmed Type Lactobacillus 1 cap PO QDB cap 04/07/19 11/05/19 History acidophilus-Bifidobac.animalis 31 billion cell capsule aspirin 81 mg tablet,delayed 81 mg PO QDB #30 tab 04/07/19 11/05/19 History release blood-glucose meter #1 ea 04/07/19 10/21/19 History metformin 1,000 mg tablet 1,000 mg PO BIDM #180 tab 04/07/19 11/05/19 History nitroglycerin 0.4 mg sublingual 0.4 mg SL Q5M PRN #25 tab 04/07/19 11/05/19 History tablet blood sugar diagnostic #50 ea 09/16/19 10/21/19 Rx lancets 30 gauge #300 ea 09/16/19 10/21/19 Rx Xarelto 20 mg PO QDD 10/23/19 11/05/19 History metoprolol succinate 50 mg PO QDB 10/23/19 11/05/19 History glipizide 10 mg tablet 10 mg PO BID #60 tab 10/30/19 11/05/19 Rx atorvastatin 80 mg PO QDD 11/05/19 11/05/19 History lisinopril 5 mg PO QDB 11/05/19 11/05/19 History metoprolol succinate 25 mg PO QDD 11/05/19 11/05/19 History Allergies Allergy/AdvReac Type Severity Reaction Status Date / Time No Known Allergies Allergy Verified 11/05/19 08:05 Past Med/Surg History Medical History Atrial fibrillation dx 08/2019 CHF (congestive heart failure) EF 20-25% Coronary artery disease 2016 (stent x1) Diabetes mellitus, type II Dilated cardiomyopathy Dyslipidemia Hypertension Myocardial infarct Palpitation Surgical History History of cardiac cath 2016 (stent x 1) History of colonoscopy Hx of vasectomy Family History Father Myocardial infarction Denies family history of Ovarian cancer Prostate cancer Breast cancer Lung cancer Colorectal cancer Stroke Social History Preferred Language: Greenlandic Communication Ability: Effective Visual Impairment: No Limitations Hearing Ability: Normal Chinchilla Farmer Required: No Beliefs That Will Affect Care: None Current Living Situation: Parent current occupational status: employed Other Information That Helps Us Care for You: No Feels Safe at Home: Yes Safety Concerns: Feels Safe At This Time Smoking Status: Current every day smoker Tobacco Type: cigarettes ; Age Started Using Tobacco: 19 ; packs per day: 1 ; Cigarettes Per Day: 20 ; Second Hand Exposure: Yes ; Hx Alcohol Use: No Hx Substance Use: Yes substance use type: marijuana Substance Use Type Other:: MARIJUANA A FEW TIMES PER WEEK Last Used Substance: Days (ago) Review of Systems See HPI for pertinent positives & negatives. and A total of 10 systems reviewed and were otherwise negative Physical Exam Vital Signs Vital Signs - 24 hr 11/05/19 07:13 11/05/19 07:16 11/05/19 07:20 Temperature 36.6 C Temperature Source Oral Pulse Rate 103 H 115 H Pulse Rate from SpO2 Sensor Pulse Rhythm Irregular Pulse Strength Normal Respiratory Rate 21 30 H Respiratory Effort / Characteristics Non-Labored Spontaneous Respiratory Depth Normal Respiratory Pattern Regular Blood Pressure 110/86 110/86 Blood Pressure Mean 101 94 Pulse Oximetry 98 97 Oxygen Delivery Method Room Air Room Air Sepsis Recent Fever Within 48 Hours No Sepsis Action Taken by Nursing No Action Required 11/05/19 08:43 11/05/19 09:30 11/05/19 10:04 Temperature Temperature Source Pulse Rate 98 H 101 H 101 H Pulse Rate from SpO2 Sensor 103 H 106 H Pulse Rhythm Pulse Strength Respiratory Rate 28 H 28 H 30 H Respiratory Effort / Characteristics Respiratory Depth Respiratory Pattern Blood Pressure 112/68 118/63 123/80 Blood Pressure Mean 85 77 84 Pulse Oximetry 95 98 96 Oxygen Delivery Method Sepsis Recent Fever Within 48 Hours Sepsis Action Taken by Nursing 11/05/19 10:30 11/05/19 10:31 11/05/19 10:40 Temperature Temperature Source Pulse Rate 103 H 93 H 103 H Pulse Rate from SpO2 Sensor 96 H 93 H 96 H Pulse Rhythm Pulse Strength Respiratory Rate 30 H 28 H 32 H Respiratory Effort / Characteristics Respiratory Depth Respiratory Pattern Blood Pressure 99/67 L Blood Pressure Mean 82 Pulse Oximetry 97 97 97 Oxygen Delivery Method Sepsis Recent Fever Within 48 Hours Sepsis Action Taken by Nursing GENERAL: Patient is sitting up in bed, chronically ill appearing, wearing hospital gown, NAD EYE EXAM: normal conjunctiva OROPHARYNX: no exudate, no erythema, lips, buccal mucosa, and tongue normal and mucous membranes are moist NECK: supple, no nuchal rigidity, no adenopathy, non-tender LUNGS: Clear to auscultation. Normal chest wall mechanics HEART: no murmurs, S1 normal and S2 normal ABDOMEN: abdomen soft, non-tender, normo-active bowel sounds, no masses, no rebound or guarding. BACK: Back is symmetrical on inspection and there is no deformity, no midline tenderness, no CVA tenderness. SKIN: no rashes and no bruising UPPER EXTREMITIES: upper extremities are grossly normal. LOWER EXTREMITIES: No pitting edema. NEURO EXAM: Normal sensorium, cranial nerves II-XII grossly intact, normal speech, no gross weakness of arms, no gross weakness of legs. Course Course ED COURSE: Vital signs were reviewed and showed tachycardia. The patients medical record was reviewed The above diagnostic studies were performed and reviewed. ED treatments and interventions as stated above. 0710: The patient was evaluated in room C10. A complete history and physical examination was performed. 0908: I updated the patient at this time. 0938: I discussed the patient's case with Dr. Shon CHOW hospitalist. She will evaluate the patient for further management. 0940: Upon reevaluation, I discussed my findings with the patient and he understands and agrees with the treatment plan. Based on the patients age, coexisting illnesses, exam and lab findings the decision to treat as an inpatient was made. The patient remained stable while under my care. The patient will be evaluated for further management. Administered Medications Lactated Ringer's (Lr) 1,000 mls @ 50 mls/hr IV .Q20H KOFFI Stop: 12/05/19 12:21 Last Admin: 11/05/19 12:30 Dose: 50 mls/hr Documented by: [id number] Ioversol (Optiray 320 100ml) 93 ml IV ONCE PRN PRN Reason: Interaction Checking Stop: 11/09/19 08:11 Last Admin: 11/05/19 08:13 Dose: 93 ml Documented by: [id number] Discontinued Medications Sodium Chloride (Nss 1000ml) 1,000 mls @ 999 mls/hr IV .Q1H1M KOFFI Stop: 11/05/19 08:30 Last Infusion: 11/05/19 08:08 Dose: 0 mls/hr Documented by: [id number] Admin: 11/05/19 07:30 Dose: 999 mls/hr Documented by: [id number] Medical Decision Making Differential Diagnosis Etiologies such as vasovagal event, infection, hypoglycemia, electrolyte a bnormalities, cardiac sources, intracerebral event, toxicologic, neurologic, as well as others were entertained. Medical Records Attestation: I reviewed the patient's medical records. Home Medications Current Medication List: was personally reviewed by me Laboratory Data Attestation: I reviewed the patient's lab results. Result diagrams: 11/05/19 07:28 11/05/19 07:28 Lab Results 11/05/19 11/05/19 11/05/19 Range/Units 07:28 07:28 07:28 WBC 12.95 H (4.8-10.8) K/uL RBC 5.17 (4.7-6.1) M/uL Hgb 15.5 (14.0-18.0) g/dL Hct 46.6 (42-52) % MCV 90.1 (80-100) fL MCH 30.0 (25-34) pg MCHC 33.3 (32-36) g/dL RDW Std Deviation 48.9 H (36.4-46.3) fL RDW Coeff of Bety 14.7 H (11.5-14.5) % Plt Count 173 (130-400) K/uL MPV 10.0 (7.4-10.4) fL Immature Gran % (Auto) 0.2 % Neut % (Auto) 92.0 % Lymph % (Auto) 4.6 % [place] % (Auto) 2.2 % Eos % (Auto) 0.8 % Baso % (Auto) 0.2 % Immature Gran # (Auto) 0.03 H (0.00-0.02) K/uL Neut # (Auto) 11.93 H (1.4-6.5) K/uL Lymph # (Auto) 0.59 L (1.2-3.4) K/uL [place] # (Auto) 0.28 (0.11-0.59) K/uL Eos # (Auto) 0.10 (0-0.5) K/uL Baso # (Auto) 0.02 (0-0.2) K/uL PT 13.7 H (9.0-12.0) Seconds INR 1.3 H (0.9-1.1) Sodium 136 (136-145) mmol/L Potassium 4.9 (3.5-5.1) mmol/L Chloride 104 (98-107) mmol/L Carbon Dioxide 24 (21-32) mmol/L Anion Gap 8.0 (3-11) BUN 26 H (7-18) mg/dl Creatinine 1.31 (0.6-1.4) mg/dl Est Cr Clr Drug Dosing 70.9 ml/min Est GFR ( Amer) 67.2 Est GFR (Non-Af Amer) 57.9 BUN/Creatinine Ratio 19.8 (10-20) Glucose 335 H* (70-99) mg/dl POC Glucose (70-99) mg/dl Calcium 8.7 (8.5-10.1) mg/dl Total Bilirubin 0.5 (0.2-1) mg/dl AST 18 (15-37) U/L ALT 36 (12-78) U/L Alkaline Phosphatase 122 H (45-117) U/L Troponin I < 0.015 (0-0.045) ng/ml Total Protein 6.5 (6.4-8.2) gm/dl Albumin 3.3 L (3.4-5.0) gm/dl Globulin 3.2 (2.5-4.0) gm/dl Albumin/Globulin Ratio 1.0 (0.9-2) Lipase 358 (73-393) U/L Beta-Hydroxybutyric Acd 1.29 (0.2-2.81) mg/dl Urine Color Urine Appearance (Clear) Urine pH (4.5-7.5) Ur Specific [place] (1.000-1.030) Urine Protein (Negative) Urine Glucose (UA) (Negative) Urine Ketones (Negative) Urine Blood (Negative) Urine Nitrite (Negative) Urine Bilirubin (Negative) Urine Urobilinogen (Negative) Ur Leukocyte Esterase (Negative) Urine WBC (Auto) (0-5) /hpf Urine RBC (Auto) (0-4) /hpf U Hyaline Cast (Auto) (0-5) /lpf U Epithel Cells (Auto) (0-5) /lpf Urine Bacteria (Auto) (Negative) 11/05/19 11/05/19 Range/Units 08:25 09:18 WBC (4.8-10.8) K/uL RBC (4.7-6.1) M/uL Hgb (14.0-18.0) g/dL Hct (42-52) % MCV (80-100) fL MCH (25-34) pg MCHC (32-36) g/dL RDW Std Deviation (36.4-46.3) fL RDW Coeff of Bety (11.5-14.5) % Plt Count (130-400) K/uL MPV (7.4-10.4) fL Immature Gran % (Auto) % Neut % (Auto) % Lymph % (Auto) % [place] % (Auto) % Eos % (Auto) % Baso % (Auto) % Immature Gran # (Auto) (0.00-0.02) K/uL Neut # (Auto) (1.4-6.5) K/uL Lymph # (Auto) (1.2-3.4) K/uL [place] # (Auto) (0.11-0.59) K/uL Eos # (Auto) (0-0.5) K/uL Baso # (Auto) (0-0.2) K/uL PT (9.0-12.0) Seconds INR (0.9-1.1) Sodium (136-145) mmol/L Potassium (3.5-5.1) mmol/L Chloride (98-107) mmol/L Carbon Dioxide (21-32) mmol/L Anion Gap (3-11) BUN (7-18) mg/dl Creatinine (0.6-1.4) mg/dl Est Cr Clr Drug Dosing ml/min Est GFR ( Amer) Est GFR (Non-Af Amer) BUN/Creatinine Ratio (10-20) Glucose (70-99) mg/dl POC Glucose 280 H (70-99) mg/dl Calcium (8.5-10.1) mg/dl Total Bilirubin (0.2-1) mg/dl AST (15-37) U/L ALT (12-78) U/L Alkaline Phosphatase (45-117) U/L Troponin I (0-0.045) ng/ml Total Protein (6.4-8.2) gm/dl Albumin (3.4-5.0) gm/dl Globulin (2.5-4.0) gm/dl Albumin/Globulin Ratio (0.9-2) Lipase (73-393) U/L Beta-Hydroxybutyric Acd (0.2-2.81) mg/dl Urine Color Yellow Urine Appearance Clear (Clear) Urine pH 5.0 (4.5-7.5) Ur Specific [place] 1.031 H (1.000-1.030) Urine Protein Trace H (Negative) Urine Glucose (UA) 3+ H (Negative) Urine Ketones Negative (Negative) Urine Blood Negative (Negative) Urine Nitrite Negative (Negative) Urine Bilirubin Negative (Negative) Urine Urobilinogen Negative (Negative) Ur Leukocyte Esterase Negative (Negative) Urine WBC (Auto) 0 (0-5) /hpf Urine RBC (Auto) 0-4 (0-4) /hpf U Hyaline Cast (Auto) 0 (0-5) /lpf U Epithel Cells (Auto) 0-5 (0-5) /lpf Urine Bacteria (Auto) Negative (Negative) Imaging Data Radiologist's Impression: Radiology results as stated below per my review and the radiologist's interpretation: CT abd pelvis IV con only CLINICAL HISTORY: Nausea, vomiting, diarrhea COMPARISON STUDY: None. TECHNIQUE: The patient was scanned in a dynamic helical fashion during intravenous administration of 92 cc of Optiray 320 A dose lowering technique was utilized adhering to the principles of ALARA. CT DOSE: 1023.91 mGy.cm FINDINGS: Lower chest: There is elevation of the left hemidiaphragm. There are minor right basilar atelectatic changes Liver: The contrast-enhanced liver is normal in size, contour, and attenuation. There is no intrahepatic biliary ductal dilatation. The hepatic veins and portal veins are patent. Gallbladder: Unremarkable. Spleen: Normal in size and attenuation. Pancreas: Unremarkable. Adrenal glands: Unremarkable. Kidneys: There is symmetric renal cortical enhancement. The kidneys are normal in size without hydronephrosis. Bowel: There are no transition zones indicate bowel obstruction. There are borderline dilated jejunal loops with borderline wall thickening. An enteritis cannot be excluded. There is no evidence of acute appendicitis. There is no evidence of acute diverticulitis. Peritoneum: There is no intraperitoneal free air or abdominal ascites. There are fat-containing inguinal hernias versus lipomatous inguinal canals Vasculature: There is ectasia of the infrarenal abdominal aorta which measures 26 mm in diameter Adenopathy: None. Pelvic viscera: The bladder, and pelvic viscera are unremarkable. Skeletal structures: No destructive osseous lesions are seen. IMPRESSION: 1. No evidence of bowel obstruction. No evidence of free air 2. No evidence of acute appendicitis. No evidence of acute diverticulitis 3. Borderline dilated jejunal loops with borderline wall thickening. An enteritis cannot be excluded. ACT 112: Negative or not required by law. Electronically signed by: Minh Velasquez M.D. 11/05/2019 8:31 AM SINGLE VIEW CHEST CLINICAL HISTORY: Generalized weakness. FINDINGS: An AP, portable, upright chest radiograph is compared to study dated 03/10/2018. The examination is degraded by portable technique and patient rotation. The heart is enlarged. The pulmonary vasculature is noncongested. There is chronic elevation of the left hemidiaphragm with associated atelectasis. The lungs and pleural spaces are otherwise clear. No pneumothorax is seen. The skeletal structures are osteopenic. The bony thorax is grossly intact. IMPRESSION: Cardiomegaly with no acute cardiopulmonary abnormality. ACT 112: Negative or not required by law. Electronically signed by: Sesar Carter M.D. 11/05/2019 7:41 AM ECG Data Attestation: I personally reviewed and interpreted this ECG as follows: Indication: + SOB/dyspnea and + tachycardia Rate (beats per minute): 108 Rhythm: + atrial fibrillation (A-fib with RVR) ECG Intervals/blocks: + Normal QT-c ECG [place]: + Normal ECG Findings: + Q waves (Inferior Q waves. ) and + Other (Poor baseline.) Additional Comments: Repeat EKG per my interpretation: A-fib at 101 bpm. Normal axis. No PVC. Normal QT-c. Blood Pressure Blood Pressure Findings: Elevated blood pressure Blood Pressure Disposition: further management by hospitalist AUGUSTINE Narrative Cardiac Monitoring: An order was placed for continuous cardiac monitoring. The monitor shows a rate of 93 with A-fib. Patient is a 64-year-old male with past medical history of A. fib who was recently cardioverted per review of the chart comes into the ER for shortness of breath, arm tingling, nausea, vomiting and near syncopal episode. He notes this felt similar to his previous [place] without a vomiting or diarrhea. IV was establi shed blood work is obtained showed no significant anemia. Mild leukocytosis at 13,000. INR was 1.3. BMP with a slightly elevated glucose at 335. This trended down to 280 with fluids. Bilirubin LFTs was unremarkable. Lipase was normal. UA was clean. Chest x-ray unremarkable. CT abdomen pelvis shows no acute pathology. Patient has a history of cardiomyopathy, A. fib CAD. With his cardiac risk factors near syncopal although I favor vasovagal did discuss with hospitalist for observation as he was back in Afib. Impression & Plan Near syncope, A-fib, Diarrhea, Shortness of breath, Vomiting Discharge Plan Visit Data *Final* Discharge Date/Time: 11/05/19 11:54 Chief Complaint: Syncope (Near Syncope) Stated Complaint: syncope ED Provider: Estrada Mathis Discharge Problem: Near syncope, A-fib, Diarrhea, Shortness of breath, Vomiting Patient Disposition: Being Evaluated by Hospitalist Discharge Instructions Interventions: ED Discharge Assessment Last Done: 11/05/19 11:54 Discharge Problem: A-fib Qualifiers: Atrial fibrillation type: unspecified Qualified Code(s): I48.91 - Unspecified atrial fibrillation Diarrhea Qualifiers: Diarrhea type: unspecified type Qualified Code(s): R19.7 - Diarrhea, unspecified Vomiting Qualifiers: Vomiting type: unspecified Vomiting Intractability: unspecified Nausea presence: with nausea Qualified Code(s): R11.2 - Nausea with vomiting, unspecifi ed The scribe's documentation has been prepared under my direction and personally reviewed by me in its entirety. I confirm that the note above accurately reflects all work, treatment, procedures, and medical decision making performed by me.
[2019-11-05] MEDS: INSULIN ASPART 100 UNITS/ML 3 ML PEN SC SCH ×3 (13:28→21:23)
--- NOTE | 2019-11-05 16:35 | Electrocardiogram Report ---
Test Reason : Blood Pressure : / mmHG Vent. Rate : 108 BPM Atrial Rate : 100 BPM P-R Int : 000 ms QRS Dur : 094 ms QT Int : 326 ms P-R-T Axes : 000 032 064 degrees QTc Int : 436 ms Atrial fibrillation with rapid ventricular response Possible Inferior infarct (cited on or before 10-MAR-2018) Abnormal ECG When compared with ECG of 28-OCT-2019 08:25, Atrial fibrillation has replaced Sinus rhythm Vent. rate has increased BY 49 BPM Confirmed by Carlos Mitchell ([id number]) on 11/05/2019 4:35:33 PM Referred By: Confirmed By:Carlos Mitchell
--- NOTE | 2019-11-05 16:36 | Electrocardiogram Report ---
Test Reason : Blood Pressure : / mmHG Vent. Rate : 101 BPM Atrial Rate : 163 BPM P-R Int : 000 ms QRS Dur : 096 ms QT Int : 348 ms P-R-T Axes : 000 048 098 degrees QTc Int : 451 ms Atrial fibrillation with rapid ventricular response Low voltage QRS Cannot rule out Inferior infarct (cited on or before 10-MAR-2018) Abnormal ECG When compared with ECG of 05-NOV-2019 07:22, (unconfirmed) No significant change was found Confirmed by Carlos Mitchell ([id number]) on 11/05/2019 4:36:13 PM Referred By: REFERRED SELF Confirmed By:Carlos Mitchell
[2019-11-05] MEDS: ATORVASTATIN 40 MG TAB PO SCH (16:48)
[2019-11-05] MEDS: RIVAROXABAN 20 MG TAB PO SCH (16:48)
[2019-11-05] MEDS: METOPROLOL SUCC 25MG EXT REL TAB PO SCH (20:54)
[2019-11-06] MEDS: LACTATED RINGER'S 1,000 ML IV SCH (05:54)
[2019-11-06 06:38] LABS: BUN Creatinine Ratio 15.1 (10-20); Calcium 8.3 mg/dl (8.5-10.1); Creatinine Clr Calc Pharmacy 83.7 ml/min; Est GFR (Non-African American) 70.8; Magnesium 1.5 mg/dl (1.8-2.4); Potassium 4.1 mmol/L (3.5-5.1)
[2019-11-06] MEDS: METOPROLOL SUCC 50MG EXT REL TAB PO SCH (08:52)
[2019-11-06] MEDS: ASPIRIN 81 MG ECTAB PO SCH (08:52)
[2019-11-06] MEDS: lisinopriL 5 MG TAB PO SCH (08:52)
[2019-11-06] MEDS: INSULIN ASPART 100 UNITS/ML 3 ML PEN SC SCH ×4 (08:54→20:54)
[2019-11-06] MEDS: MAGNESIUM SULFATE / D5W 1 GM/100 ML BAG IV SCH ×2 (09:09→11:23)
[2019-11-06 11:15] LABS: Thyroid Stimulating Hormone 0.748 uIu/ml (0.300-4.500); Troponin I 0.02 ng/ml (0-0.045)
--- NOTE | 2019-11-06 11:16 | Cardiology Consultation ---
Date of Consultation November 06, 2019 Assessment & Plan (1) Atrial flutter with rapid ventricular response: (2) Dilated cardiomyopathy: (3) Coronary artery disease: (4) Dyslipidemia: ASSESSMENT/PLAN: 1. Atrial flutter s/p cardioversion 10/28/19: Patient presented with what appears to be an acute viral gastroenteritis. On arrival, he was found to be back in atrial flutter. It is unclear when he went back into the atrial flutter after his cardioversion last week as he is rather asymptomatic with the arrhythmia. His rate appears adequately controlled at this time. Recommend continuing his current rate control therapy with metoprolol succinate 75 mg daily, and he should also remain anticoagulated with Xarelto. Will have him follow-up in our office as an outpatient to discuss long-term treatment options for his arrhythmia, including possible atrial flutter ablation. 2. Cardiomyopathy: [place] to possibly be secondary to atrial flutter with RVR. This can be reevaluated in the future, as an outpatient. Continue metoprolol and lisinopril as prescribed. He has no evidence of CHF. 3. Coronary artery disease: No angina. Cardiac enzymes have been negative. Continue aspirin and high intensity statin. Continue beta gege. 4. Dyslipidemia: Continue statin therapy. Patient discussed with Dr. Bhatia. ADDENDUM (Dr. Bhatia): Patient seen and examined. Agree with plan as outlined above by Ms. Thomas ARROYO. His GI symptoms seem to be unrelated to his cardiac status/recurrent atrial flut ter. His heart rate response during the episode seems physiologically appropriate (up to 115 bpm when ill, currently in the 70 bpm range), therefore no change in his negative chronotropic medication regimen recommended. Continue rivaroxaban for anticoagulation. As noted, we will refer to rolled glass crosscutter for further evaluation of possible atrial flutter ablation and/or device therapy to address his underlying cardiomyopathy and reduce his risk for congestive heart failure. He was feeling much better early afternoon when I saw him, okay for discharge from a cardiac standpoint. History of Present Illness Reason for Consultation: atrial fibrillation Requesting Physician: Daisy Sullivan PA-C History of Present Illness Mr. Bowie is a 64-year-old male with a past medical history significant for atrial flutter s/p cardioversion, cardiomyopathy, coronary artery disease s/p acute inferior FL treated with PCI of distal RCA with TALISHA, type 2 diabetes mellitus, dyslipidemia, hypertension, family history of coronary artery disease, and ongoing tobacco abuse. Patient's cardiac history began on 11/16/15 when he was admitted to [facility] with an acute inferior wall myocardial infarction. Cardiac catheterization revealed a subtotal distal RCA occlusion. A 3.5 x 26 mm Resolute drug eluding stent was deployed. Residual stenosis 0%. Thromboembolic event to distal segment of a right posterolateral artery. Total distal left circumflex occlusion. [place] to be chronic total occlusion. Left to left collateral flow. 20-30% mid LAD stenosis. LV angiography with ejection fraction 45%. Inferior hypokinesis. Post infarction he had sinus bradycardia and junctional bradycardia. Heart rates in the 30s to 40s. The episodes occurred in situations where he would have increased vagal tone. Post PCI echocardiogram with normal LV size. LV ejection fraction 55%. Mild to moderate inferior and posterior LV hypokinesis. Mild LVH. No significant valvular abnormalities. Normal right ventricular systolic function. More recently, patient was evaluated in the office by Dr. Sheppard for routine cardiovascular follow-up on 09/30/2019, and at that time he was found to be in asymptomatic atrial flutter with a rapid ventricular response. Ventricular rate 116 beats per minute. Labs performed that day revealed normal TSH, magnesium, and potassium. He was started on Xarelto 20 mg daily. His clopidogrel was discontinued. He was started on metoprolol succinate ER 50 mg daily. Echocardiogram performed October 07, 2019 with mild left ventricular dilatation. Severe LV systolic dysfunction. LV ejection fraction 20-25%. Global hypokinesis of the left ventricle. Mild mitral regurgitation. Evidence of elevated central venous pressure. No tricuspid regurgitation noted. Compared to an echocardiogram of 2016 there was a marked decrease in the LV ejection fraction from 55% to 20-25%. On follow-up visit 10/07/2019 he still had an elevated ventricular response to atrial flutter. Metoprolol succinate ER was increased from 50 to 75 mg daily. He was also started on spironolactone/HCTZ 25/25 daily. At his most recent follow-up visit on 10/21/2019, he remained in persistent atrial flutter. Ventricular response had improved with increased metoprolol dose. His weight was down about 7 lbs over the previous 2 weeks, and he admitted to some occasional postural lightheadedness. He underwent labs which showed elevation in his BUN and creatinine. His spironolactone/HCTZ was subsequently held. He was arranged for elective electrical cardioversion on , and he was successfully converted from atrial flutter to sinus rhythm at that time. The patient states that he felt well following his cardioversion, including improvement in his breathing. Early Sunday morning, though, he developed diarrhea. He states that he had an episode of diarrhea about every hour from midnight on. He then got up to get ready for work in the morning and noted lightheadedness, near-syncope, nausea/dry heaving, diaphoresis, leg weakness, and shortness of breath. He did not experience palpitations or chest pain, and he did not have a syncopal event. He states that he new something was wrong and did not feel as though he could drive to the hospital, therefore, he called 911 and was brought to [facility] via EMS. He was admitted and is currently being treated for gastroenteritis. He was found to be back in atrial flutter on arrival, and cardiology was therefore consulted. He states that he had 5 episodes of diarrhea throughout the day yesterday and 2 thus far today. He has not noted any significant shortness of breath since admission. He has also not noted any further lightheadedness or presyncope. He continues to deny palpitations or chest pain. He denies abnormal bleeding such as melena, hematochezia, or hematuria. He denies cerebrovascular symptoms. Allergies Allergy/AdvReac Type Severity Reaction Status Date / Time No Known Allergies Allergy Verified 11/05/19 08:05 Home Medications Home Medications Medication Instructions Recorded Confirmed Type Lactobacillus 1 cap PO QDB cap 04/07/19 11/05/19 History acidophilus-Bifidobac.animalis 31 billion cell capsule aspirin 81 mg tablet,delayed 81 mg PO QDB #30 tab 04/07/19 11/05/19 History release blood-glucose meter #1 ea 04/07/19 10/21/19 History metformin 1,000 mg tablet 1,000 mg PO BIDM #180 tab 04/07/19 11/05/19 History nitroglycerin 0.4 mg sublingual 0.4 mg SL Q5M PRN #25 tab 04/07/19 11/05/19 History tablet blood sugar diagnostic #50 ea 09/16/19 10/21/19 Rx lancets 30 gauge #300 ea 09/16/19 10/21/19 Rx Xarelto 20 mg PO QDD 10/23/19 11/05/19 History metoprolol succinate 50 mg PO QDB 10/23/19 11/05/19 History glipizide 10 mg tablet 10 mg PO BID #60 tab 10/30/19 11/05/19 Rx atorvastatin 80 mg PO QDD 11/05/19 11/05/19 History lisinopril 5 mg PO QDB 11/05/19 11/05/19 History metoprolol succinate 25 mg PO QDD 11/05/19 11/05/19 History Patient History Medical History Atrial fibrillation dx 08/2019 CHF (congestive heart failure) EF 20-25% Coronary artery disease 2016 (stent x1) Diabetes mellitus, type II Dilated cardiomyopathy Dyslipidemia Hypertension Myocardial infarct Palpitation Surgical History History of cardiac cath 2016 (stent x 1) History of colonoscopy Hx of vasectomy Family History Father Myocardial infarction Denies family history of Ovarian cancer Prostate cancer Breast cancer Lung cancer Colorectal cancer Stroke Social History Preferred Language: Swedish Communication Ability: Effective Visual Impairment: No Limitations Hearing Ability: Normal 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 All other ROS are reviewed and otherwise negative at this time. Physical Exam Physical Exam: Constitutional: Alert, oriented, in no acute distress HEENT: Head is atraumatic and normocephalic. EOMs intact. Sclera non-icteric. Face is symmetric. No perioral cyanosis. Mucous membranes moist Neck: Supple, no JVD Pulmonary: Normal respiratory effort, bibasilar crackles, otherwise clear to auscultation throughout Cardiac: Irregular with a rate in the 80s, normal S1 and S2, no gallops, no rubs, no murmurs Extremities: No edema. No clubbing or cyanosis. Pulses 2+ and symmetric Abdomen: Normal bowel sounds, soft, non-tender, no abdominal masses palpated Skin: Normal skin color, turgor, and pigmentation. No rash or skin lesions Neurological: Oriented to person, place, and time Results & Data ([facility]) Vital Signs (Past 12 Hours) Vital Signs Temp Pulse Resp BP BP Pulse Ox 11/06/19 07:55 97.3 F L 92 H 16 114/67 94 11/05/19 23:15 99.1 F 79 16 107/69 93 Laboratory Results Laboratory Results WBC 12.95 K/uL (4.8-10.8) H 11/05/19 07:28 RBC 5.17 M/uL (4.7-6.1) 11/05/19 07:28 Hgb 15.5 g/dL (14.0-18.0) 11/05/19 07:28 Hct 46.6 % (42-52) 11/05/19 07:28 MCV 90.1 fL (80-100) 11/05/19 07:28 MCH 30.0 pg (25-34) 11/05/19 07:28 MCHC 33.3 g/dL (32-36) 11/05/19 07:28 RDW Std Deviation 48.9 fL (36.4-46.3) H 11/05/19 07:28 RDW Coeff of Bety 14.7 % (11.5-14.5) H 11/05/19 07:28 Plt Count 173 K/uL (130-400) 11/05/19 07:28 MPV 10.0 fL (7.4-10.4) 11/05/19 07:28 Immature Gran % (Auto) 0.2 % 11/05/19 07:28 Neut % (Auto) 92.0 % 11/05/19 07:28 Lymph % (Auto) 4.6 % 11/05/19 07:28 [place] % (Auto) 2.2 % 11/05/19 07:28 Eos % (Auto) 0.8 % 11/05/19 07:28 Baso % (Auto) 0.2 % 11/05/19 07:28 Immature Gran # (Auto) 0.03 K/uL (0.00-0.02) H 11/05/19 07:28 Neut # (Auto) 11.93 K/uL (1.4-6.5) H 11/05/19 07:28 Lymph # (Auto) 0.59 K/uL (1.2-3.4) L 11/05/19 07:28 Cottle # (Auto) 0.28 K/uL (0.11-0.59) 11/05/19 07:28 Eos # (Auto) 0.10 K/uL (0-0.5) 11/05/19 07:28 Baso # (Auto) 0.02 K/uL (0-0.2) 11/05/19 07:28 PT 13.7 Seconds (9.0-12.0) H 11/05/19 07:28 INR 1.3 (0.9-1.1) H 11/05/19 07:28 Sodium 135 mmol/L (136-145) L 11/06/19 05:48 Potassium 4.1 mmol/L (3.5-5.1) D 11/06/19 05:48 Chloride 107 mmol/L (98-107) 11/06/19 05:48 Carbon Dioxide 23 mmol/L (21-32) 11/06/19 05:48 Anion Gap 6.0 (3-11) 11/06/19 05:48 BUN 17 mg/dl (7-18) 11/06/19 05:48 Creatinine 1.11 mg/dl (0.6-1.4) 11/06/19 05:48 Est Cr Clr Drug Dosing 83.7 ml/min 11/06/19 05:48 Est GFR ( Amer) 82.0 11/06/19 05:48 Est GFR (Non-Af Amer) 70.8 11/06/19 05:48 BUN/Creatinine Ratio 15.1 (10-20) 11/06/19 05:48 Glucose 232 mg/dl (70-99) H 11/06/19 05:48 POC Glucose 277 mg/dl (70-99) H 11/06/19 11:33 Calcium 8.3 mg/dl (8.5-10.1) L 11/06/19 05:48 Magnesium 1.5 mg/dl (1.8-2.4) L 11/06/19 05:48 Total Bilirubin 0.5 mg/dl (0.2-1) 11/05/19 07:28 AST 18 U/L (15-37) 11/05/19 07:28 ALT 36 U/L (12-78) 11/05/19 07:28 Alkaline Phosphatase 122 U/L (45-117) H 11/05/19 07:28 Troponin I 0.020 ng/ml (0-0.045) 11/06/19 10:27 Total Protein 6.5 gm/dl (6.4-8.2) 11/05/19 07:28 Albumin 3.3 gm/dl (3.4-5.0) L 11/05/19 07:28 Globulin 3.2 gm/dl (2.5-4.0) 11/05/19 07:28 Albumin/Globulin Ratio 1.0 (0.9-2) 11/05/19 07:28 Lipase 358 U/L (73-393) 11/05/19 07:28 Beta-Hydroxybutyric Acd 1.29 mg/dl (0.2-2.81) 11/05/19 07:28 TSH 0.748 uIu/ml (0.300-4.500) 11/06/19 10:27 Urine Color Yellow 11/05/19 08:25 Urine Appearance Clear (Clear) 11/05/19 08:25 Urine pH 5.0 (4.5-7.5) 11/05/19 08:25 Ur Specific [place] 1.031 (1.000-1.030) H 11/05/19 08:25 Urine Protein Trace (Negative) H 11/05/19 08:25 Urine Glucose (UA) 3+ (Negative) H 11/05/19 08:25 Urine Ketones Negative (Negative) 11/05/19 08:25 Urine Blood Negative (Negative) 11/05/19 08:25 Urine Nitrite Negative (Negative) 11/05/19 08:25 Urine Bilirubin Negative (Negative) 11/05/19 08:25 Urine Urobilinogen Negative (Negative) 11/05/19 08:25 Ur Leukocyte Esterase Negative (Negative) 11/05/19 08:25 Urine WBC (Auto) 0 /hpf (0-5) 11/05/19 08:25 Urine RBC (Auto) 0-4 /hpf (0-4) 11/05/19 08:25 U Hyaline Cast (Auto) 0 /lpf (0-5) 11/05/19 08:25 U Epithel Cells (Auto) 0-5 /lpf (0-5) 11/05/19 08:25 Urine Bacteria (Auto) Negative (Negative) 11/05/19 08:25 Diagnostic Findings ECGs reviewed and show atrial flutter in the low 100s. Possible inferior FL. CXR: Cardiomegaly with no acute cardiopulmonary abnormality. PG Care Time/CCT Total # of Minutes Spent Total Time Spent with Patient: Total time spent is greater than 50% in coordination of care (as documented) at patient's floor/unit and/or counseling patient: Coding Level of Care Code 44406 Inpt Consult Level 4 Diagnoses Atrial flutter with rapid ventricular response I48.92 Dilated cardiomyopathy I42.0 Coronary artery disease I25.10 Dyslipidemia E78.5
--- NOTE | 2019-11-06 11:31 | Billing Data ---
Date of Service November 05, 2019 Coding Level of Care Code 09543 OBS Care - Level 3
--- NOTE | 2019-11-06 14:03 | Hospitalist Progress Note ---
Date of Service November 06, 2019 Assessment & Plan (1) Diarrhea: * Acute onset watery, non-bloody diarrhea. On admission, tachycardic, tachypneic, WBC 13, UASG 1.031. CXR with cardiomegaly, no evidence of volume overload * Per patient, has decreased in frequency, but still x6 today * Likely viral enteritis -- CT A/P without evidence for obstruction, appendicitis or diverticulitis. borderline dilated jejunal loops with borderline wall thickening. enteritis cannot be excluded * Stool studies ordered * Cdiff negative * LR @ 50cc/hr -- gentle hydration in setting of reduced EF 25% * Of note, patient with bsg 335 on arrival to ED. Not very well controlled DM. * Continue to monitor (2) Atrial fibrillation: * Recent cardioversion with Dr. Aldana October 27. * Now back in afib/flutter * TSH checked -- 0.748 * transferred to telemetry morning 11/05 * Rate controlled 60-80s * Continue home Xarelto and metoprolol * Cardiology consulted -- appreciate input -- cleared for d/c from cardiac standpoint (3) Dehydration: * Secondary to diarrhea. See above (4) Diabetes mellitus, type II: * Declined insulin as outpatient. Most recent A1c 9.04 oct 2019. 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 Previous values ~1.5 in sep 2019 with GFR in 47- 49.Patient on lisinopril outpatient. * Cr improved to 1.11 with gentle hydration * Continue to monitor (7) Hypertension: * Chronic. Stable * BP 110/68 * Continue home lisinopril 5mg, metoprolol * Recently on hctz.spironolactone, however on hold given elevated Cr per outpatient notes -- patient to follow up with Dr. Sheppard (8) Dyslipidemia: * CHronic * COntinue home atorvastatin (9) Coronary artery disease: * NSTEMI 2016 w/ TALISHA. Follows with Dr. Sheppard * Continue home ASA, Atorvastatin, metoprolol (10) Dilated cardiomyopathy: * ECHO in Sep 2019 with severe LV systolic dysfunction, LV EF 20-25% (previously 55% in 2016), , left ventricular global hypokinesis. Mild MR. Elevated CVP. (11) History of ST elevation myocardial infarction (STEMI): * 2016. See above under CAD (12) Hypomagnesemia: * Mag low today at 1.5 -- given 2gm for now to prevent worsening of diarrhea * Repeat in AM (13) DVT prophylaxis: * Xarelto Dispo: stool studies pending, possible d/c in AM Admission and Anticipated Discharge Date Admission Date: November 05, 2019 Supervising Physician Co-Signing Physician Notes PA Supervision Note: I did not personally see or examine the patient today, but I verified all dowell points of SAMIA Sullivan's assessment and plan with the following exceptions/additions: None Subjective Patient feeling better. Denies chest pain, shortness of breath. Some nausea. States he has had approximately six episodes of loose stools since this morning when I saw the patient. He denies any blood or yellow/green color, recent abx usage. Ate lo mein meal for dinner prior to onset of diarrhea. No one else sick at home. States associated clamminess and became short of breath. When asked about previous anginal equivalent symptoms from [place] in 2016, he states those were feeling clammy, sweaty and short of breath. Denies abdominal pain, fever or chills, palpitations. currently. Recent cardioversion on 10/[address] Aldana and was supposed to have cardiology appointment this morning with Dr. Sheppard. hctz/spironolactone on hold due to elevated creatine. Continues to smoke 1ppd. Denies need for nicotine patch. Denies etoh usage. Review of Systems Review of Systems: All systems reviewed & are unremarkable except as noted in HPI & below Physical Exam Physical Exam: Constitutional WD/WN, vitals as above, no acute distress Eyes EOMI + anicteric sclerae ENMT normal visual inspection and trachea midline, no thyromegaly Respiratory normal respiratory effort, lungs clear to auscultation Cardiovascular Rate/Rhythm: + irregularly irregular, no m/r/g no edema, no JVD Gastrointestinal (Abdomen) Inspection/Auscultation: abdomen not distended Percussion/Palpation: abdomen soft; abdomen nontender Skin no rashes, warm and dry Neurologic sensation intact, 5/5 strength throughout Psychiatric A+Ox3, euthymic affect Lymph no cervical lymphadenopathy Results & Data ([facility]) Vital Signs (Past 12 Hours) Vital Signs Temp Pulse Resp BP BP Pulse Ox 11/06/19 11:31 36.5 C 76 18 104/69 94 11/06/19 07:55 36.3 C L 92 H 16 114/67 94 Laboratory Results 11/06/19 11/06/19 11/06/19 Range/Units 20:12 16:44 13:40 Sodium (136-145) mmol/L Potassium (3.5-5.1) mmol/L Chloride (98-107) mmol/L Carbon Dioxide (21-32) mmol/L Anion Gap (3-11) BUN (7-18) mg/dl Creatinine (0.6-1.4) mg/dl Est Cr Clr Drug Dosing ml/min Est GFR ( Amer) Est GFR (Non-Af Amer) BUN/Creatinine Ratio (-20) Glucose (70-99) mg/dl POC Glucose 199 H 195 H (70-99) mg/dl Calcium (8.5-10.1) mg/dl Magnesium (1.8-2.4) mg/dl Troponin I (0-0.045) ng/ml TSH (0.300-4.500) uIu/ml Stl C. diff Tox B Gene Negative Cdiff Gene (Neg) 11/06/19 11/06/19 11/06/19 Range/Units 11:33 10:27 08:24 Sodium (136-145) mmol/L Potassium (3.5-5.1) mmol/L Chloride (98-107) mmol/L Carbon Dioxide (21-32) mmol/L Anion Gap (3-11) BUN (7-18) mg/dl Creatinine (0.6-1.4) mg/dl Est Cr Clr Drug Dosing ml/min Est GFR ( Amer) Est GFR (Non-Af Amer) BUN/Creatinine Ratio (10-20) Glucose (70-99) mg/dl POC Glucose 277 H 217 H (70-99) mg/dl Calcium (8.5-10.1) mg/dl Magnesium (1.8-2.4) mg/dl Troponin I 0.020 (0-0.045) ng/ml TSH 0.748 (0.300-4.500) uIu/ml Stl C. diff Tox B Gene (Neg) 11/06/19 Range/Units 05:48 Sodium 135 L (136-145) mmol/L Potassium 4.1 D (3.5-5.1) mmol/L Chloride 107 (98-107) mmol/L Carbon Dioxide 23 (21-32) mmol/L Anion Gap 6.0 (3-11) BUN 17 (7-18) mg/dl Creatinine 1.11 (0.6-1.4) mg/dl Est Cr Clr Drug Dosing 83.7 ml/min Est GFR ( Amer) 82.0 Est GFR (Non-Af Amer) 70.8 BUN/Creatinine Ratio 15.1 (10-20) Glucose 232 H (70-99) mg/dl POC Glucose (70-99) mg/dl Calcium 8.3 L (8.5-10.1) mg/dl Magnesium 1.5 L (1.8-2.4) mg/dl Troponin I (0-0.045) ng/ml TSH (0.300-4.500) uIu/ml Stl C. diff Tox B Gene (Neg) PG Care Time/CCT Total # of Minutes Spent Total Time Spent with Patient: Total time spent is greater than 50% in coordination of care (as documented) at patient's floor/unit and/or counseling patient: Coding Level of Care Code 71150 Subseq Hosp Care Lvl 3 Diagnoses Diarrhea R19.7 Atrial fibrillation I48.91 Dehydration E86.0 Diabetes mellitus, type II E11.9 Hyperglycemia due to type 2 diabetes mellitus E11.65 Elevated serum creatinine R79.89 Hypertension I10 Dyslipidemia E78.5 Coronary artery disease I25.10 Dilated cardiomyopathy I42.[address] elevation myocardial infarction (STEMI) I25.2 Hypomagnesemia E83.42 DVT prophylaxis Z29.9
--- NOTE | 2019-11-06 14:24 | Electrocardiogram Report ---
Test Reason : Blood Pressure : / mmHG Vent. Rate : 104 BPM Atrial Rate : 000 BPM P-R Int : 000 ms QRS Dur : 100 ms QT Int : 368 ms P-R-T Axes : 000 039 108 degrees QTc Int : 483 ms Atrial flutter with rapid ventricular response Possible Old Inferior infarct (cited on or before 10-MAR-2018) Abnormal ECG When compared with ECG of 05-NOV-2019 08:03, No significant change was found Confirmed by Wilber Bhatia ([id number]) on 11/06/2019 2:23:59 PM Referred By: REFERRED SELF Confirmed By:Wilber Bhatia
[2019-11-06] MEDS: ATORVASTATIN 40 MG TAB PO SCH (17:25)
[2019-11-06] MEDS: RIVAROXABAN 20 MG TAB PO SCH (17:25)
[2019-11-06] MEDS: METOPROLOL SUCC 25MG EXT REL TAB PO SCH (20:54)
[2019-11-07] MEDS: LACTATED RINGER'S 1,000 ML IV SCH (02:28)
[2019-11-07 06:30] LABS: Hematocrit (blood only) 43.3 % (42-52); Hemoglobin 14.2 g/dL (14.0-18.0); Mean Corpuscular Hgb Conc 32.8 g/dL (32-36); Mean Corpuscular Volume 88.5 fL (80-100); Platelet Count 142 K/uL (130-400); RDW Standard Deviation 48.2 fL (36.4-46.3); Red Blood Count 4.89 M/uL (4.7-6.1); White Blood Count 5.66 K/uL (4.8-10.8)
[2019-11-07 07:04] LABS: Albumin Level 2.8 gm/dl (3.4-5.0); BUN Creatinine Ratio 14.5 (10-20); Calcium 8.4 mg/dl (8.5-10.1); Est GFR (African American) 71.1; Est GFR (Non-African American) 61.3; Magnesium 2.1 mg/dl (1.8-2.4); Potassium 4.6 mmol/L (3.5-5.1)
[2019-11-07 07:06] LABS: Albumin Globulin Ratio 0.9 (0.9-2); Bilirubin,Total 0.4 mg/dl (0.2-1); Globulin 3.2 gm/dl (2.5-4.0)
[2019-11-07] MEDS: lisinopriL 5 MG TAB PO SCH (08:16)
[2019-11-07] MEDS: INSULIN ASPART 100 UNITS/ML 3 ML PEN SC SCH ×3 (08:17→17:29)
[2019-11-07] MEDS: METOPROLOL SUCC 50MG EXT REL TAB PO SCH (08:17)
[2019-11-07] MEDS: ASPIRIN 81 MG ECTAB PO SCH (08:17)
[2019-11-07] MEDS ORDERED: INSULIN GLARGINE SOLOSTAR 100 UNITS/ML 3 ML PEN SC STA (11:46)
--- NOTE | 2019-11-07 11:50 | Discharge Summary ---
Date of Service November 07, 2019 Admission HPI Per Admitting Provider 64-year-old male states overnight he developed the acute onset of some nausea, dry heaves, and 4-5 bouts of watery non-bloody diarrhea. Yesterday he says he was asymptomatic. He denies any known recent sick contacts, recent travel, antibiotic use, or changes in his diet. Very early this morning he says he felt a little short of breath with all the symptoms but that has since resolved. Denies any chest pain throughout this time. At times he says both of his legs feel little numb but that also has improved. He does feel like he is a little dehydrated at present. Otherwise, denies any other acute concerns. As a side note, he does wonder when he may have gone back into A. fib after his recent cardioversion on October 27. He also says that he only controls his diabetes with p.o. meds and has never taken insulin. Lastly, he says he has a planned appointment with Dr. Sheppard (cardiology) for tomorrow morning around 11 AM and would like to be able to keep that appointment. - Past medical history includes hypertension, hyperlipidemia, coronary disease, dilated cardiomyopathy, inferior STEMI, persistent atrial fibrillation, diabetes type 2, rhabdomyolysis, tubular adenoma. - Past surgical history includes vasectomy, colonoscopy, and cardiac stenting. - Social history includes smoking 1 pack/day for over 40 years. Denies alcohol use. Lives at home with family. Works at [employer]. Admission Exam Per Admitting Provider Physical Exam: GENERAL: Awake, alert, well-appearing, in no acute distress HENT: Normocephalic, atraumatic. Oropharynx has dry oral mucous membranes. EYES: Normal conjunctiva. Sclera non-icteric. NECK: Inspection normal. Supple and full ROM. No nuchal rigidity. CARDIAC: +S1S2 irregularly irregular, no murmurs. RESPIRATORY: Clear to auscultation. No wheezes or rales. Normal respiratory effort. No present cough in room GI: +BS, soft, non-distended. No tenderness to palpation. No rebound or guarding. EXTREMITIES: No pedal edema or calf tenderness. Moving all extremities naturally and easily. Some chronic skin changes over his bilateral shins. NEURO: No gross neuro deficits. Constitutional: WD/WN, vitals as above Eyes: normal visual narvaez by confrontation and + anicteric sclerae Neck: normal visual inspection and trachea midline Respiratory: normal respiratory effort, lungs clear to auscultation Cardiovascular: Rate/Rhythm: + irregularly irregular Gastrointestinal (Abdomen): Inspection/Auscultation: abdomen not distended Percussion/Palpation: abdomen soft; abdomen nontender Musculoskeletal: Head/Neck/Chest: normocephalic and head atraumatic Neg for peripheral LE edema, + pedal pulses Skin: no rashes, warm and dry Neurologic: awake; not confused Speech / Cognition: normal speech Psychiatric: A+Ox3, euthymic affect Lymphatic: Exam as done by Pati Menendez, Principal Diagnosis Hyperglycemia, Diarrhea Discharge Exam Constitutional WD/WN, vitals as above, no acute distress Eyes EOMI + anicteric sclerae ENMT normal visual inspection and trachea midline, no thyromegaly Respiratory normal respiratory effort, lungs clear to auscultation Cardiovascular Rate/Rhythm: + irregularly irregular, no m/r/g no edema, no JVD Gastrointestinal (Abdomen) Inspection/Auscultation: abdomen not distended Percussion/Palpation: abdomen soft; abdomen nontender Skin no rashes, warm and dry Neurologic sensation intact, 5/5 strength throughout Psychiatric A+Ox3, euthymic affect Lymph no cervical lymphadenopathy Discharge Data Allergies Allergy/AdvReac Type Severity Reaction Status Date / Time No Known Allergies Allergy Verified 11/05/19 08:05 Consultations 11/05/19 11:39 ED Decision to Admit Stat 11/06/19 08:45 Consult Cardiology Routine Ordered Studies 11/05/19 07:[address] abd pelvis IV con only Stat Hospital Course (1) Diarrhea: * RESOLVED * Acute onset watery, non-bloody diarrhea. On admission, tachycardic, tachypneic, WBC 13, UASG 1.031. CXR with cardiomegaly, no evidence of volume overload * Likely viral enteritis vs related to hyperglycemia-- CT A/P without evidence for obstruction, appendicitis or diverticulitis. borderline dilated jejunal loops with borderline wall thickening. enteritis cannot be excluded * Per patient, had decreased in frequency, only 1 morning of d/c * Stool studies ordered -- pending at d/c * Cdiff negative * LR @ 50cc/hr while inpatient -- gentle hydration in setting of reduced EF 25% * Of note, patient with bsg 335 on arrival to ED. Not very well controlled DM. (2) Atrial fibrillation: * Recent cardioversion with Dr. Aldana October 27. * Back in afib/flutter here * TSH checked -- 0.748 * transferred to telemetry morning 11/05 * Rate controlled 60-80s * Continued home Xarelto and metoprolol * Cardiology consulted -- appropriate rate control * Rec follow up with Dr. Sheppard/cardiology regarding ablation vs other as outpt (3) Dehydration: * Secondary to diarrhea. See above (4) Diabetes mellitus, type II: * Most recent A1c 9.04 oct 2019. Per patient, he frequently had diarrhea after eating, and this may have been related to episode of hyperglycemia as sugar on admit 380s * Home metformin and glipizide on hold while inpatient * ISS BSG AC/HS with multiple changes to ISS while inpatient * coding educator consulted during inpatient stay --> patient agreeable to trial insulin. Discharged on lantus 10units once daily. * Rec trulicity vs other outpatient --> set up with endocrinology as outpatient * Home glipizide was discontinued * Sent with rx for meter/testing supplies and shown how to do self injections (5) Hyperglycemia due to type 2 diabetes mellitus: * See above (6) Elevated serum creatinine: * Cr on admission 1.31. Previous values ~1.5 in sep 2019 with GFR in 47- 49.Patient on lisinopril outpatient. * Cr 1.25 prior to discharge (7) Hypertension: * Chronic. Stable * BP 118/83 * Continued home lisinopril 5mg, metoprolol * Recently on hctz and spironolactone for lower extremity edema but discontinued outpatient (8) Dyslipidemia: * Chronic * Continued home atorvastatin (9) Coronary artery disease: * NSTEMI 2015 w/ TALISHA. Follows with Dr. Sheppard * Continued home ASA, Atorvastatin, metoprolol (10) Dilated cardiomyopathy: * ECHO in Sep 2019 with severe LV systolic dysfunction, LV EF 20-25% (previously 55% in 2016), , left ventricular global hypokinesis. Mild MR. Elevated CVP. 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 See above under CAD (12) Hypomagnesemia: * Mag low at .5 --> given 2 gm IV and repeat at 2.1 (13) DVT prophylaxis: * Continued home Xarelto Discharged home on insulin. Follow up with cardiology, endocrinology, PCP (Dr. Spaulding) outpatient. DM educator to call on sunday to ensure no difficulty with insulin/injections stool studies pending at discharge -- preliminary negative Total Time Total Time Spent Total Time Spent (In Minutes): 60 Discharge Plan Discharge Items Patient Disposition: Home - Self-Care Reason For Visit: DIARRHEA,DEHYDRATION,HYPERGLYCEMIA Discharge Diagnosis: Gastroenteritis, Hyperglycemia Condition on Discharge: Good Goals: You have been hospitalized for an acute medical problem. During your stay at [facility], we have made an effort to correct the problem that brought you to the hospital while keeping you as comfortable as possible. Medications were used to bring your condition under control and your discharge instructions will include directions for any medications you should take after leaving the hospital. Please make sure you see your Primary Care Provider as part of your follow up plan. Activity: Resume your previous activity Non-emergency contact: Primary Care Provider Call non-emergency contact if: you have any medication questions, your symptoms worsen and you have a fever Follow-up/Referrals: Rai Sheppard Jr, MD, [facility] [Physician] - 11/18/19 9:00 am (If you need to reschedule this appointment, please call [phone].) PCP,NO [Primary Care Provider] - Diet: Carb Consistent or DM2 and Heart Healthy Addtl Attending Provider Instructions: You have been hospitalized for a likely viral gastroenteritis although your diarrhea may have been caused by elevated blood sugars, as they were in the high 300s on admission. After determining your insulin needs, it is determined that you will be discha rged on the following regimen: -- DISCONTINUE home glipizide -- CONTINUE home metformin 1000mg by mouth twice daily -- Insulin (Lantus) SQ -- 10units once daily. You have been sent prescription for the meter and needles/testing supplies. [place], the chemical educator you met with while in the hospital, will be calling you ealier next week to ensure everything is going well. You should follow up with Endocrinology as scheduled on 11/20 at 9am with Jonathan Torres PA-C for your diabetes. It is strongly encouraged that you abstain from all tobacco/cigarette usage. You should follow up with Dr. Spaulding in the next 5-7 days to monitor your progress. You should follow up with Dr. Sheppard in the next week to discuss an ablation for your irregular heart rhythm. If you experience any chest pain, shortness of breath, worsening abdominal pain/diarrhea, or any symptoms that are concerning for you, please report to the closest emergency room. It has been a pleasure being a part of the care team providing for you while you have been in the hospital. Take care! Pending Studies at Discharge: Yes Studies:: Stool studies Stand-Alone Forms: [facility] [employer], Smoking Cessation Medications and DC Order Prescriptions: New Lantus Solostar U-100 Insulin 100 unit/mL (3 mL) insulin pen 10 units SQ DAILY Qty: 15 RF: 0 (DME) pen needle, diabetic [BD Rebecca 2nd Gen Pen Needle] 32 gauge x 5/32" needle See Rx Instructions .ROUTE .MEDSUPPLY Qty: 10 RF: 0 Continued aspirin 81 mg tablet,delayed release (DR/EC) 81 mg PO QDB Qty: 30 RF: 0 metformin 1,000 mg tablet 1,000 mg PO BIDM Qty: 180 RF: 0 nitroglycerin 0.4 mg tablet, sublingual 0.4 mg SL Q5M PRN (Reason: Chest Pain) Qty: 25 RF: 0 Lacto.acidophilus-Bif.animalis 31 billion cell capsule 1 cap PO QDB RF: 0 metoprolol succinate 50 mg tablet extended release 24 hr 50 mg PO QDB RF: 0 Xarelto 20 mg tablet 20 mg PO QDD RF: 0 metoprolol succinate 50 mg tablet extended release 24 hr 25 mg PO QDD RF: 0 atorvastatin 80 mg tablet 80 mg PO QDD RF: 0 lisinopril 5 mg tablet 5 mg PO QDB RF: 0 (DME) blood-glucose meter [[employer] MediaTouch Ultra2 Meter] misc 0 .ROUTE .MEDSUPPLY Qty: 1 RF: 0 (DME) blood sugar diagnostic [OneTouch Ultra Blue Test Strip] Strip 0 .ROUTE .MEDSUPPLY Qty: 50 RF: 4 Discontinued (DME) lancets [OneTouch Delica Lancets] 30 gauge misc See Dose Instructions .ROUTE .MEDSUPPLY Qty: 300 RF: 5 glipizide 10 mg tablet 10 mg PO BID Qty: 60 RF: 0 Discharge Orders: Discharge Order (Routine); Ordered 11/07/19 Ordered By: Daisy Sullivan Admission Data Admit Date/Time: 11/06/19 22:20 Attending Provider: Sandra Pelaez Admit Provider: Tylor Jang Primary Care Provider: PCP,NO Other Providers: Carlos Mitchell Other Interventions: Discharge Summary Assessment (RN) Last Done: 11/07/19 17:43 DC Date/Time DO NOT enter until pt leaves facility: 11/07/19 18:00 Supervising Physician Co-Signing Physician Notes PA Supervision Note: I personally saw and examined the patient. I verified all dowell points and agree with SAMIA Sullivan with the following exceptions and/or additions: Pt feeling much better, no further diarrhea. Denies CP or SOB. Is demetrio po and ready for discharge to home. NAD, AAOx3 Irreg irreg, normal rate CTAB no wcr Abd +BS soft NT ND Ext no edema Stable for dc to home after likely viral gastroenteritis and mild dehydration Coding Level of Care Code D/C Day Management >30 mins Diagnoses Diarrhea R19.7 Atrial fibrillation I48.91 Dehydration E86.0 Diabetes mellitus, type II E11.9 Hyperglycemia due to type 2 diabetes mellitus E11.65 Elevated serum creatinine R79.89 Hypertension I10 Dyslipidemia E78.5 Coronary artery disease I25.10 Dilated cardiomyopathy I42.[address] elevation myocardial infarction (STEMI) I25.2 Hypomagnesemia E83.42 DVT prophylaxis Z29.9
[2019-11-07] MEDS: ATORVASTATIN 40 MG TAB PO SCH (17:30)
[2019-11-07] MEDS: RIVAROXABAN 20 MG TAB PO SCH (17:33)
== END 2019-11-07 18:00 | disposition home or self-care (01) | DRG 392 ==
LOC: ED 07:10 → 3W 07:10 → SUATTDRO 10:52 → 3W 11:54 → 2W 11-06 08:42

== ENCOUNTER 2024-05-18 08:38 | Inpatient (IN) ==
--- NOTE | 2024-05-18 09:12 | Emergency Department Note ---
Impression & Plan Severe sepsis, Cellulitis of left foot ED Provider Note Name: TRINY VIDAL Age: 69 Sex: Male Arrives Via: Walk-In Informant: Patient ED Provider: Harpal Galeano MD Chief Complaint: Illness Impression: As per impressions above Medical Decision Makin-year-old gentleman arrives for evaluation of illness. Patient is hypotensive tachycardic on arrival. He is ill-appearing. He has a significant cellulitis of the left lower leg secondary to diabetic ulcer to the bottom of the left foot. Sepsis workup initiated. Fluid resuscitation resulted in improvement in blood pressure and heart rate. EKG shows in a flutter which she has had on previous evaluations. Patient is significantly improved with resuscitation. Given severe sepsis and initial findings hospitalization clearly indicated. Hospitalist consulted for further management. Sepsis resuscitation. Patient was not given 30/kg IV normal saline bolus as he has history of cardiomyopathy with heart failure. Instead he was given 1 L normal saline bolus with improvement of his heart rate and blood pressure. Sepsis repeat evaluation. Patient reevaluated at 10:25 AM on 05/18/2024. Sepsis reevaluation completed by me. Initial 1 L normal saline bolus has infused. His blood pressure is 110/60 his heart rate is in the 90s a flutter. Good cap refill patient is awake alert oriented in no distress. Triage/Nursing Notes reviewed by Me External Chart Review by me: I reviewed discharge summary from 04/21/2024 admitted for sepsis previously Differential:Infection, dehydration, metabolic abnormality, hypo/hyperglycemia, electrolyte disturbance, anemia, hypoxia, cardiac sources, intracerebral event, toxicologic, neurologic, as well as other pathologies. Vital Signs: reviewed and remarkable for hypertensive, tachycardic Interventions: Normal saline bolus 1 L IV, cefepime 2 g IV, vancomycin IV Labs:ED labs Reviewed by me and remarkable for elevated CRP, mildly elevated white blood cell count Imaging:X-ray of the left foot soft tissue swelling inflammatory markers around distal fourth metatarsal. As per my interpretation. 1 view chest x-ray as per my interpretation no infiltrate or effusion appreciated. Congestive failure similar to previous EKG:As per my interpretation. Indication sepsis. Atrial flutter at 120 bpm with a variable block. QTc 460. There is no clear ischemic findings. Compared to EKG 04/17/2024 no significant change Cardiac/Tele Monitoring: Cardiac Monitoring: An Order was placed for continuous cardiac monitoring. The monitor shows a rate of 90 with a atrial flutter rhythm. Consults:Hospitalist was consulted and discussed with them and they will bring in for further management. Plan: Disposition:Hospitalization. Condition: Good History of Present Illness: 69-year-old gentleman arrives for evaluation of illness. Patient notes rapidly worsening fatigue illness and weakness over the last 24 hours. Associated with near syncope. States he feels very lightheaded. He has been dealing with an infection on his left foot with an episode of sepsis about a month ago. Patient arrives this morning due to return of infection. He has redness spreading up his leg. Wound on bottom left foot with some drainage. He states it was diagnosed with a bacterial infection and started on Cipro 24 hours ago. Denies any fevers, chills, nausea, vomiting. Denies any abdominal pain, chest pain, shortness of breath. No other current symptoms. Not having any runny nose or urinary burning. No known sick contacts. Past Medical History:See Below Home Medications:See Below Allergies:nkda Vitals:Blood Pressure: 91/58, [id number] , RR 20, T 36.4C, O2 94% on RA Physical Exam: GENERAL: Patient is ill appearing and in moderate distress. Dehydrated appearing RESPIRATORY: No dyspnea. Clear to auscultation and equal bilaterally. CARDIOVASCULAR: tachy.No murmur appreciated. GASTROINTESTINAL: Abdomen soft, non-tender, no peritonitis. EXTREMITIES: Swelling of the left lower leg. There is erythema and edema of the left foot primarily over the top and lateral aspect of the spreading up the leg with streaking to the knee. There is a wound under the left foot distal mid plantar area. It is about quarter sized with some mild exudative drainage. No tenderness palpation or fluctuance appreciated. No crepitus appreciated. Normal motion all extremities, no cyanosis, no edema. NEUROLOGIC: Alert and oriented. No focal neurologic deficits appreciated SKIN: No rash, no jaundice, no diaphoresis. PSYCH: Appropriate GCS: 15 ED Course: Times/Reassessments: Patient is much improved with IV fluids. He is breathing comfortably and agreeable to hospitalization Critical Care: I have personally spent 35 minutes of critical care time in the direct management of this patient. Severe sepsis with initial hypotensive episode requiring resuscitation. Secondary to left foot infection. This was a life/limb threatening event. This 35 minutes is in excess of all separately billable procedures. Harpal Galeano MD Past Med/Surg History Problem List Cellulitis of left foot (Acute) Severe sepsis (Acute) Diabetic ulcer of left foot associated with diabetes mellitus due to underlying condition, with fat layer exposed (Acute ~02/2024) Peripheral arterial disease (Chronic) Heart failure with reduced ejection fraction High potassium Permanent atrial fibrillation Coronary artery disease (Chronic) 2016 (stent x1) Dyslipidemia (Chronic) Hypertension (Chronic) History of ST elevation myocardial infarction (STEMI) (Chronic) Chronic anticoagulation Sinus bradycardia CAD in [place] artery 2016- x 1 stent Diabetic peripheral neuropathy associated with type 2 diabetes mellitus Cardiomyopathy Microalbuminuria due to type 2 diabetes mellitus Diabetic nephropathy associated with type 2 diabetes mellitus Vitamin D deficiency Presence of drug-eluting stent in right coronary artery 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) Cigarette smoker (Chronic) Medical History (Updated 05/19/24 @ 09:32 by Harpal Galeano MD) Sepsis Tubular adenoma of colon Antiplatelet or antithrombotic long-term use Health care maintenance Screening PSA (prostate specific antigen) Personal history of diabetic foot ulcer Elevated alkaline phosphatase level Paroxysmal atrial fibrillation Cellulitis of foot, left Foreign body in foot, left Anemia Hypertension Internal hemorrhoids Raynauds phenomenon Tubular adenoma of colon Atrial flutter Hypomagnesemia Near syncope Elevated serum creatinine CHF (congestive heart failure) EF 20-25% Atrial fibrillation dx 08/2019 Cigarette smoker [place] Surgical History Hx of vasectomy History of colonoscopy History of cardiac cath 2016 (stent x 1) Family History Father Myocardial infarction Denies family history of Ovarian cancer Prostate cancer Breast cancer Lung cancer Colorectal cancer Stroke Social History Smoking Status: Never smoker Tobacco Type: Cigarettes Age Started Using Tobacco: 19; packs per day: 0.5; Cigarettes Per Day: 0.5 pack per day; Second Hand Exposure: No; Do You Dip or Chew Tobacco: No; Tobacco Cessation Education Requested by Patient: No Hx Alcohol Use: No Hx Substance Use: No Preferred Language: Hebrew Communication Ability: Effective Visual Impairment: No Limitations Hearing Ability: Normal Serials Librarian Required: No Beliefs That Will Affect Care: None marital status: Current Living Situation: Alone Current Living Situation Comment: brother and brother's girlfriend current occupational status: employed How many Children do You have: 1 How many Children do You have Comment: Daughter Other Information That Helps Us Care for You: No Feels Safe at Home: Yes Safety Concerns: Feels Safe At This Time Childhood Exposure to Second-Hand Smoke: Yes caffeine: Yes during the past year weight has: remained stable Dental Care, Regularly: Yes Physical Activity Frequency: Does not Exercise Seatbelt Use: always Sunscreen Use: No Assistive Devices: None Allergies Allergies Allergy/AdvReac Type Severity Reaction Status Date / Time No Known Allergies Allergy Verified 05/18/24 10:40 Home Meds Home Medications Medication Instructions Recorded Confirmed ascorbic acid (vitamin C) 500 mg 500 mg PO DAILY 03/11/20 05/18/24 tablet Lactobacillus 1 cap PO DAILY 04/27/20 05/18/24 acidophilus-Bifidobac.animalis 31 billion cell capsule aspirin 81 mg tablet,delayed 81 mg PO DAILY #30 tabs 04/27/20 05/18/24 release cyanocobalamin (vitamin B-12) 1,000 mcg PO DAILY 04/27/20 05/18/24 1,000 mcg tablet (Vitamin B-12) cholecalciferol (vitamin D3) 50 50 mcg PO DAILY 06/23/21 05/18/24 mcg (2,000 unit) capsule arginine HCl (L-arginine) 1,000 mg 1,000 mg PO TID 07/05/23 05/18/24 tablet atorvastatin 80 mg tablet 0 mg PO HS 05/18/24 05/18/24 Previous Rx's Medication Instructions Recorded nitroglycerin 0.4 mg sublingual 0.4 mg sublingual Q5M PRN Chest 01/09/23 tablet Pain #25 tabs pen needle, diabetic 32 gauge x #100 ea 05/21/23" (BD Rebecca 2nd Gen Pen Needle) empagliflozin 25 mg tablet 25 mg PO QAM #90 tabs 08/10/23 (Jardiance) OneTouch Ultra Test (blood sugar #300 ea 09/03/23 diagnostic) lisinopril 40 mg tablet 40 mg PO DAILY 90 days #90 tabs 09/03/23 albuterol sulfate 90 mcg/actuation 2 puff inhalation Q6H PRN 12/14/23 aerosol inhaler shortness of breath or wheezing #8.5 grams metoprolol succinate 25 mg 25 mg PO DAILY #90 tabs 01/08/24 tablet,extended release 24 hr apixaban 5 mg tablet 5 mg PO BID #180 tabs 03/04/24 montelukast 10 mg tablet 10 mg PO DAILY #30 tabs 03/10/24 (Singulair) lancets 33 gauge (OneTouch Delica #300 ea 03/17/24 Plus Lancet) amlodipine 5 mg tablet 5 mg PO DAILY #90 tabs 03/26/24 insulin glargine 100 unit/mL (3 24 unit (0.24 mL) subcut QAM #30 mL 04/23/24 mL) subcutaneous pen (Lantus Solostar U-100 Insulin) dulaglutide 3 mg/0.5 mL 3 mg (0.5 mL) subcut Q7D #6 mL 04/24/24 subcutaneous pen injector metformin 1,000 mg tablet 1,000 mg PO BID #180 tabs 04/29/24 ciprofloxacin HCl 500 mg tablet 500 mg PO BID 14 days #28 tabs 05/16/24 Results & Data (ED) Vital Signs Vital Signs - 24 hr 05/18/24 09:33 05/18/24 09:45 05/18/24 10:00 Pulse Rate 120 H 109 H Pulse Rate [Apical] 99 H Pulse Rate from SpO2 Sensor 114 H Respiratory Rate 20 17 22 Blood Pressure 115/78 112/73 Blood Pressure [Right Arm] 106/78 Blood Pressure Mean 89 86 Blood Pressure Mean [Right Arm] 87 Pulse Oximetry 96 96 Oxygen Delivery Method Room Air 05/18/24 10:00 05/18/24 10:15 05/18/24 10:16 Pulse Rate 109 H 87 122 H Pulse Rate [Apical] Pulse Rate from SpO2 Sensor Respiratory Rate 22 20 Blood Pressure 106/78 107/74 Blood Pressure [Right Arm] Blood Pressure Mean 90 83 Blood Pressure Mean [Right Arm] Pulse Oximetry 96 94 Oxygen Delivery Method 05/18/24 10:30 Pulse Rate 100 H Pulse Rate [Apical] Pulse Rate from SpO2 Sensor Respiratory Rate 20 Blood Pressure 111/73 Blood Pressure [Right Arm] Blood Pressure Mean 90 Blood Pressure Mean [Right Arm] Pulse Oximetry 97 Oxygen Delivery Method Laboratory Data 05/19/24 06:19 05/19/24 06:19 Lab Results 05/18/24 Range/Units 09:20 WBC 12.32 H (4.8-10.8) K/ul RBC 4.67 L (4.70-6.10) M/uL Hgb 14.9 (14.0-18.0) g/dl Hct 45.2 (42.0-52.0) % MCV 96.8 (80.0-100.0) fL MCH 31.9 (25.0-34.0) pg MCHC 33.0 (32.0-36.0) g/dL RDW Std Deviation 50.2 H (36.4-46.3) fL RDW Coeff of Bety 13.9 (11.5-14.5) % Plt Count 216 (130-400) K/uL MPV 9.8 (9.4-12.4) fL Immature Gran % (Auto) 0.3 % Neut % (Auto) 82.3 % Lymph % (Auto) 8.4 % [place] % (Auto) 7.2 % Eos % (Auto) 1.4 % Baso % (Auto) 0.4 % Neut # (Auto) 10.13 H (1.40-6.50) K/uL Lymph # (Auto) 1.04 L (1.20-3.40) K/uL [place] # (Auto) 0.89 H (0.11-0.59) K/uL Eos # (Auto) 0.17 (0.00-0.50) K/uL Baso # (Auto) 0.05 (0.00-0.20) K/uL Immature Gran # (Auto) 0.04 (0.01-0.20) K/uL ESR 42 H (0-20) mm/hr Sodium 139 (136-145) mmol/L Potassium 4.6 (3.5-5.1) mmol/L Chloride 106 (98-107) mmol/L Carbon Dioxide 27 (21-32) mmol/L Anion Gap 6 (3-11) BUN 20 (6-23) mg/dl Creatinine 1.33 (0.6-1.4) mg/dl Est Cr Clr Drug Dosing 62.8 ml/min Est GFR ( Amer) 63.7 ml/min Est GFR (Non-Af Amer) 54.9 ml/min BUN/Creatinine Ratio 15.0 (10-20) Glucose 168 H (70-99(Fasting)) mg/dl Lactate 1.8 (0.4-2.0) mmol/L Calcium 9.7 (8.6-10.3) mg/dl Magnesium 1.7 (1.7-2.4) mg/dl Total Bilirubin 0.5 (0.2-1.0) mg/dl Direct Bilirubin 0.1 (0-0.2) mg/dl AST 19 (13-39) U/L ALT 28 (7-52) U/L Alkaline Phosphatase 89 (34-104) U/L Troponin I High Sens 9.4 (0-20) pg/ml C-Reactive Protein 6.09 H (0-0.5) mg/dl Total Protein 7.0 (6.0-8.3) gm/dl Albumin 4.2 (3.4-5.0) gm/dl Procalcitonin 0.03 (0-0.5) ng/ml Administered Medications Amlodipine Besylate (Amlodipine Besylate 5 Mg Tab) 5 mg PO DAILY KOFFI Stop: 06/18/24 08:59 Last Admin: 05/19/24 08:27 Dose: 5 mg Documented By: ANETTE Aspirin (Aspirin 81 Mg Ectab) 81 mg PO DAILY KOFFI Stop: 06/18/24 08:59 Last Admin: 05/19/24 08:27 Dose: 81 mg Documented By: ANETTE Atorvastatin Calcium (Atorvastatin 40 Mg Tab) 80 mg PO HS KOFFI Stop: 06/17/24 20:59 Last Admin: 05/18/24 20:20 Dose: 80 mg Documented By: SPENCER Enoxaparin Sodium (Enoxaparin Inj 40 Mg/0.4 Ml Syr) 40 mg SQ Q24H KOFFI Stop: 06/17/24 20:59 Last Admin: 05/18/24 20:20 Dose: 40 mg Documented By: SPENCER Cefepime HCl 2,000 mg/ Syringe 20 mls @ 5 mls/min IV Q8H KOFFI; Protocol Stop: 06/29/24 15:59 Last Admin: 05/19/24 08:59 Dose: 5 mls/min Documented By: Admin: 05/18/24 23:49 Dose: 5 mls/min Documented By: Admin: 05/18/24 16:03 Dose: 5 mls/min Documented By: AM Vancomycin HCl 1,000 mg/ (Sodium Chloride) 270 mls @ 200 mls/hr IV Q12 KOFFI Stop: 06/29/24 20:59 Last Admin: 05/19/24 08:24 Dose: 200 mls/hr Documented By: Infusion: 05/18/24 22:02 Dose: Infused Documented By: Admin: 05/18/24 20:20 Dose: 200 mls/hr Documented By: SPENCER Lactated Ringer's (Lr) 1,000 mls @ 100 mls/hr IV .Q10H KOFFI Stop: 05/20/24 05:44 Last Admin: 05/19/24 00:07 Dose: 100 mls/hr Documented By: SPENCER Insulin Aspart (Insulin Aspart Per Unit Charge) 0 units SC ACHS KOFFI Stop: 06/17/24 11:29 Last Admin: 05/19/24 07:41 Dose: Not Given Documented By: Admin: 05/18/24 21:38 Dose: Not Given Documented By: Admin: 05/18/24 17:42 Dose: 1 units Documented By: NIKHIL Co-signed By: WESLY Admin: 05/18/24 14:54 Dose: Not Given Documented By: NIKHIL Co-signed By: WESLY Insulin Glargine (Lantus Per Unit Charge) 12 units SQ BID KOFFI Stop: 06/18/24 08:59 Last Admin: 05/19/24 08:26 Dose: 12 units Documented By: ANETTE Co-signed By: SCOTTIE Lisinopril (Lisinopril 40 Mg Tab) 40 mg PO DAILY KOFFI Stop: 06/18/24 08:59 Last Admin: 05/19/24 08:27 Dose: 40 mg Documented By: ANETTE Metoprolol Succinate (Metoprolol Succ 25mg Ext Rel Tab) 25 mg PO DAILY KOFFI Stop: 06/18/24 08:59 Last Admin: 05/19/24 08:27 Dose: 25 mg Documented By: ANETTE Miscellaneous (Remove Nicoderm Patch) 1 each N/A DAILY@0859 [facility] Stop: 06/18/24 08:58 Last Admin: 05/19/24 08:27 Dose: 1 each Documented By: ANETTE Montelukast Sodium (Montelukast Sodium 10 Mg Tablet) 10 mg PO DAILY KOFFI Stop: 06/18/24 08:59 Last Admin: 05/19/24 08:27 Dose: 10 mg Documented By: ANETTE Nicotine (Nicotine 21 Mg/24 Hr Tdsy) 1 patch TD QAM KOFFI Stop: 06/18/24 08:59 Last Admin: 05/19/24 08:27 Dose: 1 patch Documented By: ANETTE Discontinued Medications Sodium Chloride (Nss) 1,000 mls @ 999 mls/hr IV .Q1H1M KOFFI Stop: 05/18/24 11:15 Last Infusion: 05/18/24 11:57 Dose: Infused Documented By: Admin: 05/18/24 10:53 Dose: 999 mls/hr Documented By: Infusion: 05/18/24 10:26 Dose: Infused Documented By: Admin: 05/18/24 09:22 Dose: 999 mls/hr Documented By: AIDE Cefepime HCl (Maxipime) 2,000 mg in 20 mls @ 5 mls/min IV NOW STA; Protocol Stop: 05/18/24 09:16 Last Admin: 05/18/24 09:23 Dose: 5 mls/min Documented By: AIDE Vancomycin HCl 2,000 mg/ (Sodium Chloride) 540 mls @ 200 mls/hr IV NOW ONE Stop: 05/18/24 11:54 Last Infusion: 05/18/24 12:54 Dose: Infused Documented By: Admin: 05/18/24 09:47 Dose: 200 mls/hr Documented By: JERILYN Sodium Chloride (Nss) 1,000 mls @ 125 mls/hr IV .Q8H [facility] Stop: 06/17/24 10:29 Last Infusion: 05/18/24 18:21 Dose: Infused Documented By: Infusion: 05/18/24 14:18 Dose: 125 mls/hr Documented By: Infusion: 05/18/24 13:00 Dose: 0 mls/hr Documented By: Infusion: 05/18/24 11:57 Dose: 125 mls/hr Documented By: Infusion: 05/18/24 10:53 Dose: 0 mls/hr Documented By: Admin: 05/18/24 10:29 Dose: 125 mls/hr Documented By: JERILYN Lactated Ringer's (Lr) 500 mls @ 999 mls/hr IV .Q31M ONE Stop: 05/18/24 11:05 Last Admin: 05/18/24 11:01 Dose: Not Given Documented By: JERILYN Magnesium Sulfate/Dextrose (Magnesium Sulfate / D5w) 1 gm in 100 mls @ 50 mls/hr IV ONE ONE Stop: 05/18/24 12:35 Last Infusion: 05/18/24 13:36 Dose: Infused Documented By: Admin: 05/18/24 11:17 Dose: 50 mls/hr Documented By: JERILYN Imaging Data Radiologist's Impression: Chest X-Ray 05/18/24 09:06 XR chest 1V portable CLINICAL HISTORY: Sepsis. COMPARISON STUDY: Chest radiograph April 18, 2024. FINDINGS: Elevation of the left hemidiaphragm is unchanged. There is no pneumothorax or pleural effusion. No evidence for pulmonary edema. Cardiomegaly is unchanged. Mediastinal contours are stable. No consolidation to suggest pneumonia. IMPRESSION: No acute cardiopulmonary findings. ACT 112: Negative or not required by law. Electronically signed by: Rakesh Johnson M.D. 05/18/2024 9:33 AM Foot X-Ray 05/18/24 09:06 XR foot LT min 3V routine CLINICAL HISTORY: wound distal mid foot with sepsis COMPARISON: Left foot radiographs April 17, 2024. MRI of the left foot April 25, 2024. FINDINGS: Alignment of the left foot is anatomic. Tarsometatarsal joints are intact. There is subtle relative lucency of the left fourth metatarsal head which corresponds to site of marrow edema on MRI of April 25, 2024. No clear bony destruction is evident. There are no fractures within the left foot. There are posterior and plantar calcaneal spurs. Mild degenerative changes within several articulations of the left foot are noted. IMPRESSION: No fractures within the left foot. No clear bony destruction. Relative lucency of the left fourth metatarsal head which corresponds to site of marrow edema on MRI of April 25, 2024. This may reflect osteomyelitis. ACT 112: Negative or not required by law. Electronically signed by: Rakesh Johnson M.D. 05/18/2024 9:41 AM Discharge Plan Visit Data Chief Complaint: Foot Injury/Pain Stated Complaint: L FOOT REDNESS, SWELLING ED Provider: Harpal Galeano Discharge Problem: Severe sepsis, Cellulitis of left foot Patient Disposition: Admitted As Inpatient Discharge Instructions Interventions: ED Discharge Assessment Last Done: 05/18/24 12:08
[2024-05-18] MEDS ORDERED: VANCOMYCIN CONSULT ACTIVE PRN (09:13)
[2024-05-18] MEDS: SODIUM CHLORIDE 0.9% 1,000 ML IV SCH ×2 (09:22→10:29)
[2024-05-18] MEDS: CEFEPIME 2,000 MG/20 ML VIAL IV STA (09:23)
--- NOTE | 2024-05-18 09:34 | XRay Report ---
XR chest 1V portable CLINICAL HISTORY: Sepsis. COMPARISON STUDY: Chest radiograph April 18, 2024. FINDINGS: Elevation of the left hemidiaphragm is unchanged. There is no pneumothorax or pleural effus ion. No evidence for pulmonary edema. Cardiomegaly is unchanged. Mediastinal contours are stable. No consolidation to suggest pneumonia. IMPRESSION: No acute cardiopulmonary findings. ACT 112: Negative or not required by law. Electronically signed by: Rakesh Johnson M.D. 05/18/2024 9:33 AM
[2024-05-18 09:40] LABS: Basophils # (auto) 0.05 K/uL (0.00-0.20); Basophils % (auto) 0.4 %; Eosinophils # (auto) 0.17 K/uL (0.00-0.50); Eosinophils % (auto) 1.4 %; Hematocrit (blood only) 45.2 % (42.0-52.0); Hemoglobin 14.9 g/dl (14.0-18.0); Immature Granulocytes # (auto) 0.04 K/uL (0.01-0.20); Immature Granulocytes % (auto) 0.3 %; Lymphocytes # (auto) 1.04 K/uL (1.20-3.40); Lymphocytes % (auto) 8.4 %; Mean Corpuscular Hemoglobin 31.9 pg (25.0-34.0); Mean Corpuscular Volume 96.8 fL (80.0-100.0); Mean Platelet Volume 9.8 fL (9.4-12.4); Monocytes # (auto) 0.89 K/uL (0.11-0.59); Monocytes % (auto) 7.2 %; Neutrophils # (auto) 10.13 K/uL (1.40-6.50); Neutrophils % (auto) 82.3 %; Platelet Count 216 K/uL (130-400); RDW Coefficient of Variation 13.9 % (11.5-14.5); RDW Standard Deviation 50.2 fL (36.4-46.3); Red Blood Count 4.67 M/uL (4.70-6.10); White Blood Count 12.32 K/ul (4.8-10.8)
--- NOTE | 2024-05-18 09:43 | XRay Report ---
XR foot LT min 3V routine CLINICAL HISTORY: wound distal mid foot with sepsis COMPARISON: Left foot radiographs April 17, 2024. MRI of the left foot April 25, 2024. FINDINGS: Alignment of the left foot is anatomic. Tarsometatarsal joints are intact. There is subtle relative lucency of the left fourth metatarsal head which corresponds to site of marrow edema on MRI of April 25, 2024. No clear bony destruction is evident. There are no fractures within the left sisi t. There are posterior and plantar calcaneal spurs. Mild degenerative changes within several articula tions of the left foot are noted. IMPRESSION: No fractures within the left foot. No clear bony destruction. Relative lucency of the lef t fourth metatarsal head which corresponds to site of marrow edema on MRI of April 25, 2024. This ma y reflect osteomyelitis. ACT 112: Negative or not required by law. Electronically signed by: Rakesh Johnson M.D. 05/18/2024 9:41 AM
[2024-05-18] MEDS: VANCOMYCIN HCL 2,000 MG in SODIUM CHLORIDE 0.9% 500 ML IV ONE (09:47)
[2024-05-18 10:10] LABS: Albumin Level 4.2 gm/dl (3.4-5.0); Bilirubin Direct 0.1 mg/dl (0-0.2); Bilirubin,Total 0.5 mg/dl (0.2-1.0); Calcium 9.7 mg/dl (8.6-10.3); Magnesium 1.7 mg/dl (1.7-2.4); Potassium 4.6 mmol/L (3.5-5.1)
[2024-05-18 10:16] LABS: Creatinine Clr Calc Pharmacy 62.8 ml/min; Est GFR (African American) 63.7 ml/min; Est GFR (Non-African American) 54.9 ml/min
[2024-05-18 10:22] LABS: Troponin I High Sensitivity 9.4 pg/ml (0-20)
--- NOTE | 2024-05-18 10:34 | History & Physical Report ---
Date of Service May 18, 2024 Assessment & Plan (1) Sepsis: Plan: Admit to the PCU on telemetry and pulse oximetry Currently stable and nontoxic-appearing Presented to ED for acute progression of his known left diabetic foot wound with significant cellulitis overnight Met sepsis criteria on arrival with tachycardia of 140, leukocytosis of 12, and source being his known diabetic foot wound Lactate is within normal limits, Pro-Med 0.03, patient is nontoxic-appearing Was given a dose of cefepime and vancomycin in the ED, completed 1 L NSS and currently receiving second 1 L NSS bolus time of admission Will hold further IV fluids after the second NSS bolus volume overload with his history of heart failure with mildly reduced ejection fraction and clinical stability Continue cefepime and vancomycin for now Follow blood cultures SQ Lovenox for DVT prophylaxis Heart healthy/DM type II diet with 2 g sodium restriction AM CBC, CMP, mag, PT/ (2) Diabetic ulcer of left foot associated with diabetes mellitus due to underlying condition, with fat layer exposed: Plan: Was admitted last month for the same issue and underwent antibiotic treatment Has been following with the wound care, 1 visit thus far, wound was debrided and patient was placed in immobilizing boot Infection continues to progress, concerns for possible left fourth toe osteomyelitis on x-ray today Wound cultures from 05/13/2024 growing pansensitive E. coli and Pseudomonas Will continue with cefepime and vancomycin for now, follow blood cultures Will obtain repeat MRI of the left foot for further evaluation Orthopedics consult has been placed Pain control with Tylenol and morphine for now (3) Permanent atrial fibrillation: Plan: Noted to be in atrial flutter on arrival with heart rate in the 140s Patient has known history of both atrial fibrillation and flutter, did have his a.m. doses of metoprolol and Eliquis prior to arrival Heart rate currently controlled after initial resuscitation in the ED Will continue home metoprolol hold Eliquis for now as he may need to go to the OR during this admission Continue to monitor on telemetry (4) Heart failure with reduced ejection fraction: Plan: Currently euvolemic on exam After patient completes his second liter NSS bolus will hold ongoing IV fluids for now as he is stable and nontoxic-appearing Hold Jardiance for now (5) Hypertension: Plan: Currently stable Will plan to continue home amlodipine (6) Coronary artery disease: Plan: Continue statin and aspirin (7) Cigarette smoker: Plan: Continue to encourage smoking cessation Continue full dose nicotine patch and as needed nicotine gum (8) Controlled diabetes mellitus type 2 with complications: Plan: Monitor BSG ACHS, goal is [id number] Hold metformin and dulaglutide for now Normally takes 24 units a.m. Lantus, had his a.m. dose today Will start 12 units Lantus twice daily starting tomorrow morning Start CF of 45 and CR 15 ACHS for now Adjust regimen as needed Plan The patient was discussed with Dr. Xie at the time of the admission History of Present Illness Chief Complaint: Left foot infection Primary Care Provider: Marcella Braswell MD [place] is a 69-year-old male with a past medical history significant for peripheral arterial disease, DM type II, left diabetic foot wound, CAD status post cardiac cath with TALISHA placement to the RCA and 2016, hypertension, atrial fibrillation (on Eliquis), dyslipidemia, and tobacco abuse who presented to [facility] ED on 05/18/2024 due to concerns of progression of his known left diabetic foot wound. On arrival to the ED he was noted to be tachycardic with heart rate in the 140s, hypotensive 91/58, but otherwise stable. Labs were significant for a leukocytosis of 12 with neutrophil predominance of 10, lactate within normal limits, Pro-Med 0.03. Chest x-ray was read as negative for acute findings. X-ray of the left foot was read as negative for acute trauma but did note relative lucency of the left fourth metatarsal head which corresponds to the site of marrow edema on MRI of April 25, 2024. This may reflect osteomyelitis. ECG showed atrial flutter with heart rate in the 120s. Prior to admission the patient was given 2 L normal saline, a dose of cefepime, and dose of vancomycin. Patient was sitting in bed in no acute distress at time of exam. Confirms that since his recent admission last month for his left foot infection he has followed up with his PCP and the wound care clinic. The wound care clinic did debride the chronic wound on the inferior aspect of the left foot and placed him in a immobilizing boot to try and offload pressure. States that he started a course of ciprofloxacin prescribed by his PCP yesterday, 05/17/2024. Overnight he states that his left foot infection significantly progressed including the erythema on the back of his left foot. Denies fever but did feel some chills. Otherwise denies recent chest pain, shortness of breath, cough, nausea/vomiting, abdominal pain, diarrhea, dysuria/hematuria, paresthesias, unilateral weakness, recent trauma. States that he took his a.m. medications including Eliquis, metoprolol, and his Lantus. Understands that he may need his left fourth toe amputated he indeed has osteomyelitis. Smoking approximately 1/2 pack of cigarettes daily and trying to continue to cut down with the use of nicotine patches. Understands he needs complete smoking cessation to avoid progression of his peripheral arterial disease and ongoing infections. Confirms he is a full code while his daughter to make medical decisions for him if he cannot make himself. Please refer to Dr. Xie's attestation for any changes to the treatment plan Allergies Allergy/AdvReac Type Severity Reaction Status Date / Time No Known Allergies Allergy Verified 05/18/24 10:40 Home Medications Medication Instructions Recorded Confirmed Type ascorbic acid (vitamin C) 500 mg 500 mg PO DAILY 03/11/20 05/18/24 History tablet Lactobacillus 1 cap PO DAILY 04/27/20 05/18/24 History acidophilus-Bifidobac.animalis 31 billion cell capsule aspirin 81 mg tablet,delayed 81 mg PO DAILY #30 tabs 04/27/20 05/18/24 History release cyanocobalamin (vitamin B-12) 1,000 mcg PO DAILY 04/27/20 05/18/24 History 1,000 mcg tablet (Vitamin B-12) cholecalciferol (vitamin D3) 50 50 mcg PO DAILY 06/23/21 05/18/24 History mcg (2,000 unit) capsule nitroglycerin 0.4 mg sublingual 0.4 mg sublingual Q5M PRN Chest 01/09/23 05/18/24 Rx tablet Pain #25 tabs pen needle, diabetic 32 gauge x #100 ea 05/21/23 05/13/24 Rx " (BD Rebecca 2nd Gen Pen Needle) arginine HCl (L-arginine) 1,000 mg 1,000 mg PO TID 07/05/23 05/18/24 History tablet empagliflozin 25 mg tablet 25 mg PO QAM #90 tabs 08/10/23 05/18/24 Rx (Jardiance) OneTouch Ultra Test (blood sugar #300 ea 09/03/23 05/13/24 Rx diagnostic) lisinopril 40 mg tablet 40 mg PO DAILY 90 days #90 tabs 09/03/23 05/18/24 Rx albuterol sulfate 90 mcg/actuation 2 puff inhalation Q6H PRN 12/14/23 05/18/24 Rx aerosol inhaler shortness of breath or wheezing #8.5 grams metoprolol succinate 25 mg 25 mg PO DAILY #90 tabs 01/08/24 05/18/24 Rx tablet,extended release 24 hr apixaban 5 mg tablet 5 mg PO BID #180 tabs 03/04/24 05/18/24 Rx montelukast 10 mg tablet 10 mg PO DAILY #30 tabs 03/10/24 05/18/24 Rx (Singulair) lancets 33 gauge ([employer] Delica #300 ea 03/17/24 05/13/24 Rx Plus Lancet) amlodipine 5 mg tablet 5 mg PO DAILY #90 tabs 03/26/24 05/18/24 Rx insulin glargine 100 unit/mL (3 24 unit (0.24 mL) subcut QAM #30 mL 04/23/24 05/18/24 Rx mL) subcutaneous pen (Lantus Solostar U-100 Insulin) dulaglutide 3 mg/0.5 mL 3 mg (0.5 mL) subcut Q7D #6 mL 04/24/24 05/18/24 Rx subcutaneous pen injector metformin 1,000 mg tablet 1,000 mg PO BID #180 tabs 04/29/24 05/18/24 Rx ciprofloxacin HCl 500 mg tablet 500 mg PO BID 14 days #28 tabs 05/16/24 05/18/24 Rx atorvastatin 80 mg tablet 0 mg PO HS 05/18/24 05/18/24 History Past Med/Surg History Problem List Cellulitis of left foot (Acute) Severe sepsis (Acute) Diabetic ulcer of left foot associated with diabetes mellitus due to underlying condition, with fat layer exposed (Acute ~02/2024) Peripheral arterial disease (Chronic) Heart failure with reduced ejection fraction High potassium Permanent atrial fibrillation Coronary artery disease (Chronic) 2016 (stent x1) Dyslipidemia (Chronic) Hypertension (Chronic) History of ST elevation myocardial infarction (STEMI) (Chronic) Chronic anticoagulation Sinus bradycardia CAD in [place] artery 2016- x 1 stent Diabetic peripheral neuropathy associated with type 2 diabetes mellitus Cardiomyopathy Microalbuminuria due to type 2 diabetes mellitus Diabetic nephropathy associated with type 2 diabetes mellitus Vitamin D deficiency Presence of drug-eluting stent in right coronary artery 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) Cigarette smoker (Chronic) Medical History (Updated 05/19/24 @ 09:32 by Harpal Galeano MD) Sepsis Tubular adenoma of colon Antiplatelet or antithrombotic long-term use Health care maintenance Screening PSA (prostate specific antigen) Personal history of diabetic foot ulcer Elevated alkaline phosphatase level Paroxysmal atrial fibrillation Cellulitis of foot, left Foreign body in foot, left Anemia Hypertension Internal hemorrhoids Raynauds phenomenon Tubular adenoma of colon Atrial flutter Hypomagnesemia Near syncope Elevated serum creatinine CHF (congestive heart failure) EF 20-25% Atrial fibrillation dx 08/2019 Cigarette smoker [place] Surgical History Hx of vasectomy History of colonoscopy History of cardiac cath 2016 (stent x 1) Family History Father Myocardial infarction Denies family history of Ovarian cancer Prostate cancer Breast cancer Lung cancer Colorectal cancer Stroke Social History Smoking Status: Never smoker Tobacco Type: Cigarettes Age Started Using Tobacco: 19; packs per day: 0.5; Cigarettes Per Day: 0.5 pack per day; Second Hand Exposure: No; Do You Dip or Chew Tobacco: No; Tobacco Cessation Education Requested by Patient: No Hx Alcohol Use: No Hx Substance Use: No Preferred Language: Turkish Communication Ability: Effective Visual Impairment: No Limitations Hearing Ability: Normal V Groove Cutter Required: No Beliefs That Will Affect Care: None marital status: Current Living Situation: Alone Current Living Situation Comment: brother and brother's girlfriend current occupational status: employed How many Children do You have: 1 How many Children do You have Comment: Daughter Other Information That Helps Us Care for You: No Feels Safe at Home: Yes Safety Concerns: Feels Safe At This Time Childhood Exposure to Second-Hand Smoke: Yes caffeine: Yes during the past year weight has: remained stable Dental Care, Regularly: Yes Physical Activity Frequency: Does not Exercise Seatbelt Use: always Sunscreen Use: No Assistive Devices: None Physical Exam 2 Physical Exam: Physical Exam: General: In no acute distress, stated age, well-nourished, good hygiene HEENT: Normocephalic, atraumatic, no scleral icterus, pupils around round, symmetrical, and reactive to light, dry mucus membranes, trachea midline, no thyromegaly Chest/Pulm: No respiratory distress, symmetrical chest expansion, clear breath sounds throughout Cardiac: irregular rate and rhythm, no murmurs noted Abdomen: Negative for ascites and bruising, normoactive bowel sounds, soft, non-tender to palpation throughout Musculoskeletal: No acute trauma on exam Extremities: Radial, dorsalis pedis, and posterior tibial pulses are intact and symmetrical, no edema noted in the BL LE's Skin: Patient with large diabetic foot wound on the inferior aspect of the left distal foot recently debrided without acute drainage, cellulitic changes noted on the dorsal aspect of the left foot tracking approximately. See attached pictures below for details Neuro: Alert and oriented to person, place, month, year, and president, no focal defects, no tremors noted Psych: No acute distress, calm and cooperative during the exam Results & Data Results & Data Vital Signs (Past 12 Hours) Vital Signs Temp Pulse Pulse Resp BP BP Pulse Ox 05/18/24 10:16 122 H 05/18/24 10:00 99 H 22 106/78 96 05/18/24 09:45 109 H 17 112/73 96 05/18/24 09:33 120 H 20 115/78 05/18/24 09:27 108 H 18 100 05/18/24 09:16 120 H 103/77 05/18/24 08:48 36.4 C L 140 H 20 91/58 L 94 O2 Del Method 05/18/24 10:16 05/18/24 10:00 Room Air 05/18/24 09:45 05/18/24 09:33 05/18/24 09:27 Room Air 05/18/24 09:16 05/18/24 08:48 Room Air Laboratory Results Abnormal lab results 05/18/24 Range/Units 09:20 WBC 12.32 H (4.8-10.8) K/ul RBC 4.67 L (4.70-6.10) M/uL RDW Std Deviation 50.2 H (36.4-46.3) fL Neut # (Auto) 10.13 H (1.40-6.50) K/uL Lymph # (Auto) 1.04 L (1.20-3.40) K/uL [place] # (Auto) 0.89 H (0.11-0.59) K/uL Glucose 168 H (70-99(Fasting)) mg/dl Diagnostic Findings Chest X-Ray 05/18/24 09:06 XR chest 1V portable CLINICAL HISTORY: Sepsis. COMPARISON STUDY: Chest radiograph April 18, 2024. FINDINGS: Elevation of the left hemidiaphragm is unchanged. There is no pneumothorax or pleural effusion. No evidence for pulmonary edema. Cardiomegaly is unchanged. Mediastinal contours are stable. No consolidation to suggest pneumonia. IMPRESSION: No acute cardiopulmonary findings. ACT 112: Negative or not required by law. Electronically signed by: Rakesh Johnson M.D. 05/18/2024 9:33 AM Foot X-Ray 05/18/24 09:06 XR foot LT min 3V routine CLINICAL HISTORY: wound distal mid foot with sepsis COMPARISON: Left foot radiographs April 17, 2024. MRI of the left foot April 25, 2024. FINDINGS: Alignment of the left foot is anatomic. Tarsometatarsal joints are intact. There is subtle relative lucency of the left fourth metatarsal head which corresponds to site of marrow edema on MRI of April 25, 2024. No clear bony destruction is evident. There are no fractures within the left foot. There are posterior and plantar calcaneal spurs. Mild degenerative changes within several articulations of the left foot are noted. IMPRESSION: No fractures within the left foot. No clear bony destruction. Relative lucency of the left fourth metatarsal head which corresponds to site of marrow edema on MRI of April 25, 2024. This may reflect osteomyelitis. ACT 112: Negative or not required by law. Electronically signed by: Rakesh Johnson M.D. 05/18/2024 9:41 AM ECG Additional Comments: Atrial flutter without acute ST segment or T wave changes Code Status & VTE Plan Code Status Full code VTE Prophylaxis Plan VTE Prophylaxis will be ordered: Yes Supervising Physician Co-Signing Physician Notes I personally saw and examined the patient. I verified all dowell points and agree with Amrit Cantu PA-C with the following exceptions and/or additions: 69 year old male presents to the ER with worsening foot infection. Debrided in the office by podiatry. Prior MRI concerning for the start of osteomyelitis. No fever or chills. Uncontrolled T1DM. Seen by vascular last admission with no intervention recommend. O/E HS RRR, no murmurs, Chest CTAB, Abdo SNT, unstageable ulcer on plantar aspect of left foot A/P Osteomyelitis - NPO after midnight, will start IV fluids again overnight potentially pre-oepratively, consult orthopedics for source control, vanc + cefepime PG Care Time/CCT Total # of Minutes Spent Total Time Spent with Patient: Total time spent is greater than 50% in coordination of care (as documented) at patient's floor/unit and/or counseling patient: Coding [place] [address] INT INP/OBS CARE 3/75MIN Patient Type Established Medical Decision Making High Complexity Diagnoses Sepsis A41.9 Diabetic ulcer of left midfoot associated with diabetes mellitus due to underlying condition, with fat layer exposed E08.621; L97.422 Diabetic foot ulcer location: midfoot Permanent atrial fibrillation I48.21 Heart failure with reduced ejection fraction I50.20 Primary hypertension I10 Hypertension type: primary hypertension Coronary artery disease I25.10 Cigarette smoker F17.210 Controlled type 2 diabetes mellitus with complication, with long-term current use of insulin E11.8; Z79.4 Diabetes mellitus fpc insulin use: with fpc use (2) Diabetic ulcer of left foot associated with diabetes mellitus due to underlying condition, with fat layer exposed Diabetic foot ulcer location: midfoot Qualified Code(s): E08.621 - Diabetes mellitus due to underlying condition with foot ulcer; L97.422 - Non-pressure chronic ulcer of left heel and midfoot with fat layer exposed (5) Hypertension Hypertension type: primary hypertension Qualified Code(s): I10 - Essential (primary) hypertension (8) Controlled diabetes mellitus type 2 with complications Diabetes mellitus fpc insulin use: with fpc use Qualified Code(s): E11.8 - Type 2 diabetes mellitus with unspecified complications; Z79.4 - ocean transportation intermediary (current) use of insulin
[2024-05-18] MEDS ORDERED: CARBOHYDRATES FOR HYPOGLYCEMIA PO PRN (10:53)
[2024-05-18] MEDS ORDERED: GLUCOSE 40% GEL 15 GM TUBE PO PRN (10:53)
[2024-05-18] MEDS ORDERED: GLUCOSE 10 TAB/TUBE PO PRN (10:53)
[2024-05-18] MEDS ORDERED: DEXTROSE 50% 50 ML SYRINGE IV PRN (10:53)
[2024-05-18] MEDS ORDERED: GLUCAGON FOR INJ 1 MG VIAL SQ PRN (10:53)
[2024-05-18] MEDS ORDERED: MoRPHine SULFATE 2 MG/ML CARP IV PRN (10:55)
[2024-05-18] MEDS: LACTATED RINGER'S 500 ML IV ONE (11:01)
[2024-05-18] MEDS ORDERED: NICOTINE POLACRILEX 2 MG GUM MT PRN (11:04)
[2024-05-18] MEDS: MAGNESIUM SULFATE / D5W 1 GM/100 ML BAG IV ONE (11:17)
[2024-05-18 11:54] LABS: C Reactive Protein 6.09 mg/dl (0-0.5)
--- NOTE | 2024-05-18 14:11 | Pharmacy Report ---
Pharmacy PK ABX Note - Date of Service May 18, 2024 - Assessment and Plan Assessment 69 year old M receiving Vancomycin and cefepime for treatment of recurrent infection of the left foot with concerns for possible osteomyelitis seen on x- ray today. * Day # 1 of antimicrobial therapy. * Patient was admitted last month for the same issue (received vancomycin and ceftriaxone and discharged on oral clindamycin)and has been following with wound care--wound was debrided and patient placed in immobilizing boot. Infection continued to progress * Wound cultures from 05/13/24 grew gonzales sensitive E.coli and Pseudomonas. Prior history of MRSA seen in toe culture in 2019. * Blood cultures currently pending. Plan Vancomycin * Loading dose: 2000 mg IV x 1 * Maintenance dose: 1000 mg IV every 12 hours * Regimen is predicted to achieve target AUC/IVA slightly over 600 around the 8th dose. Targeting a higher AUC initially due to possible presence of osteomyelitis. * Trough level ordered for: 05/20/24 with morning labs. Pharmacy will continue to follow and will adjust dose/frequency as necessary. Thank you. Pharmacy has transitioned to AUC monitoring for vancomycin. AUC/IVA is the preferred PK/PD target and is associated with decreased risk of nephrotoxicity compared to traditional trough targets.
--- NOTE | 2024-05-18 14:15 | Magnetic Resonance Report ---
MRI OF THE LEFT FOOT WITHOUT CONTRAST CLINICAL HISTORY: concern for OM of left 4th toe COMPARISON STUDY: MRI of the left foot April 25, 2024. Left foot radiographs performed earlier tochato brandt. TECHNIQUE: Utilizing a 1.5 Maria Luz magnet and dedicated coil, multiplanar, multi echo imaging of the le ft foot was performed without intravenous contrast FINDINGS: A wound of the plantar left forefoot is noted. This exam is mildly compromised by motion ar tifact although is diagnostic. There are no acute fractures within the left midfoot or forefoot. Ther e is moderate dorsal subcutaneous edema of the midfoot. Tarsometatarsal joints are intact. Lisfranc l igament is intact. Marked marrow edema within the left fourth metatarsal head is noted. T1 marrow sig nal is markedly diminished. This has progressed since previous MRI. There is mild marrow edema within the lateral aspect of the left third metatarsal head, similar to prior exam. T1 signal is minimally diminished. There is also mild marrow edema within the base of the proximal phalanx of the left fourt h toe. T1 signal appears relatively preserved. No additional sites of marrow edema are present. There are no fluid collections. No mass is identified. IMPRESSION: 1. Findings consistent with acute osteomyelitis of the left fourth metatarsal head which has progress ed since previous MRI. 2. Mild marrow edema within the lateral aspect of the left third metatarsal head and the base of the proximal phalanx of the left fourth toe. By MRI criteria, the findings suggest osteitis although patricia y developing osteomyelitis could appear similar. 3. No fluid collections identified. Moderate dorsal midfoot edema. 2. ACT 112: Negative or not required by law. Electronically signed by: Rakesh Johnson M.D. 05/18/2024 2:12 PM
[2024-05-18] MEDS: INSULIN ASPART PER UNIT CHARGE SC SCH (14:54)
[2024-05-18] MEDS: CEFEPIME 2,000 MG in SYRINGE 0 ML IV SCH (16:03)
[2024-05-18 18:29] LABS: Appearance Urine Clear (Clear); Bacteria Urine Automated None Seen (None Seen); Bilirubin Urine Negative (Negative); Blood Urine Negative (Negative); Cast Urine Automated 0-2 /lpf (0-2); Color Urine Yellow; Epithelial Cell Urine Auto 0-2 /hpf (0-2); Glucose Urine UA 3+ (Negative); Ketones Urine Negative (Negative); Leukocyte Esterase Urine Negative (Negative); Nitrite Urine Negative (Negative); Protein Urine Trace (Negative); RBC Urine Automated 0-2 /hpf (0-2); Specific Gravity Urine 1.025 (1.000-1.030); Urobilinogen Urine Negative (Negative); WBC Urine Automated 0-5 /hpf (0-5)
[2024-05-18] MEDS: ENOXAPARIN INJ 40 MG/0.4 ML SYR SQ SCH (20:20)
[2024-05-18] MEDS: ATORVASTATIN 40 MG TAB PO SCH (20:20)
[2024-05-18] MEDS: VANCOMYCIN HCL 1,000 MG in SODIUM CHLORIDE 0.9% 250 ML IV SCH (20:20)
[2024-05-19] MEDS: LACTATED RINGER'S 1,000 ML IV SCH (00:07)
[2024-05-19 06:57] LABS: Basophils # (auto) 0.07 K/uL (0.00-0.20); Basophils % (auto) 0.7 %; Eosinophils # (auto) 0.24 K/uL (0.00-0.50); Eosinophils % (auto) 2.4 %; Hematocrit (blood only) 43.9 % (42.0-52.0); Hemoglobin 14.2 g/dl (14.0-18.0); Immature Granulocytes # (auto) 0.03 K/uL (0.01-0.20); Immature Granulocytes % (auto) 0.3 %; Lymphocytes # (auto) 1.18 K/uL (1.20-3.40); Mean Corpuscular Hemoglobin 31.2 pg (25.0-34.0); Mean Corpuscular Hgb Conc 32.3 g/dL (32.0-36.0); Mean Corpuscular Volume 96.5 fL (80.0-100.0); Mean Platelet Volume 9.7 fL (9.4-12.4); Monocytes # (auto) 0.83 K/uL (0.11-0.59); Monocytes % (auto) 8.4 %; Neutrophils # (auto) 7.48 K/uL (1.40-6.50); Neutrophils % (auto) 76.2 %; Platelet Count 210 K/uL (130-400); RDW Coefficient of Variation 13.8 % (11.5-14.5); RDW Standard Deviation 49.1 fL (36.4-46.3); Red Blood Count 4.55 M/uL (4.70-6.10); White Blood Count 9.83 K/ul (4.8-10.8)
[2024-05-19 07:14] LABS: Albumin Globulin Ratio 1.5 (0.9-2); Albumin Level 3.8 gm/dl (3.4-5.0); BUN Creatinine Ratio 15.2 (10-20); Bilirubin,Total 0.6 mg/dl (0.2-1.0); Calcium 8.9 mg/dl (8.6-10.3); Creatinine Clr Calc Pharmacy 79.6 ml/min; Est GFR (African American) 84.7 ml/min; Est GFR (Non-African American) 73.1 ml/min; Globulin 2.6 gm/dl (2.5-4.0); Magnesium 1.8 mg/dl (1.7-2.4); Potassium 4.7 mmol/L (3.5-5.1); Total Protein 6.4 gm/dl (6.0-8.3)
[2024-05-19 07:26] LABS: INR 1.1 (0.9-1.1); Prothrombin Time 11.4 Seconds (9.0-12.0)
[2024-05-19] MEDS: LANTUS PER UNIT CHARGE SQ SCH (08:26)
[2024-05-19] MEDS: lisinopril 40 MG TAB PO SCH (08:27)
[2024-05-19] MEDS: MONTELUKAST SODIUM 10 MG TABLET PO SCH (08:27)
[2024-05-19] MEDS: amLODIPine BESYLATE 5 MG TAB PO SCH (08:27)
[2024-05-19] MEDS: METOPROLOL SUCC 25MG EXT REL TAB PO SCH (08:27)
[2024-05-19] MEDS: NICOTINE 21 MG/24 HR TDSY TD SCH (08:27)
[2024-05-19] MEDS: ASPIRIN 81 MG ECTAB PO SCH (08:27)
--- NOTE | 2024-05-19 12:52 | Podiatry Consultation ---
Date of Consultation May 19, 2024 Assessment & Plan (1) Cellulitis of left foot: Today at bedside I removed all dressings and evaluated the left foot. For the most part in physical evaluation as previously stated ulceration is relatively unchanged from visit with me last Sunday. I appreciate findings on recent MRI obtained on 05-18-2024 showing the acute osteomyelitis of fourth metatarsal head. At this time until vascular ways and I do feel that dressings consisting of Aquacel silver and Allevyn foam should be continued. I have concerns of his vascular status impeding healing which should likely be evaluated. Will continue to follow patient. (2) Diabetic ulcer of left foot associated with diabetes mellitus due to underlying condition, with fat layer exposed: Diabetic foot ulcer location: midfoot Qualified Code(s): E08.621 - Diabetes mellitus due to underlying condition with foot ulcer; L97.422 - Non- pressure chronic ulcer of left heel and midfoot with fat layer exposed (3) Peripheral arterial disease: (4) Cigarette smoker: History of Present Illness Reason for Consultation: Patient is a very pleasant 69-year-old male known to my practice last seen on May 12. Patient has a known left foot diabetic foot ulcer. Since I last saw him on Sunday the ulceration itself has not significantly deteriorated or worsened, understandably patient did develop cellulitis and erythema and swelling he presented to the emergency department on Sunday due to these worsening conditions he has been on antibiotics and he noted to me when I saw him at bedside that this has been improving. Patient has a known history of arterial disease and arterial Doppler ordered December 27, 2023 which showed 50 to 74% stenosis and an SHREE of 0.[address] he then [address] angiogram after that which showed an occluded internal iliac artery bilateral lower extremities. My concern is is that his known arterial disease is potentially preventing this ulceration from healing, I reviewed the recent MRI obtained on May 18 showing the changes of the fourth metatarsal head consistent with acute osteomyelitis. I do feel vascular medicine should weigh in and potentially provide some sort of intervention to help heal this area prior to surgical intervention of removal of the fourth metatarsal head. Otherwise patient seen at bedside today and was stable again the ulceration itself was relatively unchanged from previous follow-up visit. There has been some improvement of the swelling and erythema although he still appreciated some erythema at the dorsal lateral aspect of the left foot. Patient notably stated he felt well to me. Attending Physician: Gregoria Reid MD History of Present Illness left foot diabetic foot ulcer with acute osteomyelitis of the 4th metatarsal head known arterial disease Allergies Allergy/AdvReac Type Severity Reaction Status Date / Time No Known Allergies Allergy Verified 05/18/24 10:40 Home Medications Medication Instructions Recorded Confirmed Type ascorbic acid (vitamin C) 500 mg 500 mg PO DAILY 03/11/20 05/18/24 History tablet Lactobacillus 1 cap PO DAILY 04/27/20 05/18/24 History acidophilus-Bifidobac.animalis 31 billion cell capsule aspirin 81 mg tablet,delayed 81 mg PO DAILY #30 tabs 04/27/20 05/18/24 History release cyanocobalamin (vitamin B-12) 1,000 mcg PO DAILY 04/27/20 05/18/24 History 1,000 mcg tablet (Vitamin B-12) cholecalciferol (vitamin D3) 50 50 mcg PO DAILY 06/23/21 05/18/24 History mcg (2,000 unit) capsule nitroglycerin 0.4 mg sublingual 0.4 mg sublingual Q5M PRN Chest 01/09/23 05/18/24 Rx tablet Pain #25 tabs pen needle, diabetic 32 gauge x #100 ea 05/21/23 05/13/24 Rx 5/32" (BD Rebecca 2nd Gen Pen Needle) arginine HCl (L-arginine) 1,000 mg 1,000 mg PO TID 07/05/23 05/18/24 History tablet empagliflozin 25 mg tablet 25 mg PO QAM #90 tabs 08/10/23 05/18/24 Rx (Jardiance) OneTouch Ultra Test (blood sugar #300 ea 09/03/23 05/13/24 Rx diagnostic) lisinopril 40 mg tablet 40 mg PO DAILY 90 days #90 tabs 09/03/23 05/18/24 Rx albuterol sulfate 90 mcg/actuation 2 puff inhalation Q6H PRN 12/14/23 05/18/24 Rx aerosol inhaler shortness of breath or wheezing #8.5 grams metoprolol succinate 25 mg 25 mg PO DAILY #90 tabs 01/08/24 05/18/24 Rx tablet,extended release 24 hr apixaban 5 mg tablet 5 mg PO BID #180 tabs 03/04/24 05/18/24 Rx montelukast 10 mg tablet 10 mg PO DAILY #30 tabs 03/10/24 05/18/24 Rx (Singulair) lancets 33 gauge (OneTouch Delica #300 ea 03/17/24 05/13/24 Rx Plus Lancet) amlodipine 5 mg tablet 5 mg PO DAILY #90 tabs 03/26/24 05/18/24 Rx insulin glargine 100 unit/mL (3 24 unit (0.24 mL) subcut QAM #30 mL 04/23/24 05/18/24 Rx mL) subcutaneous pen (Lantus Solostar U-100 Insulin) dulaglutide 3 mg/0.5 mL 3 mg (0.5 mL) subcut Q7D #6 mL 04/24/24 05/18/24 Rx subcutaneous pen injector metformin 1,000 mg tablet 1,000 mg PO BID #180 tabs 04/29/24 05/18/24 Rx ciprofloxacin HCl 500 mg tablet 500 mg PO BID 14 days #28 tabs 05/16/24 05/18/24 Rx atorvastatin 80 mg tablet 0 mg PO HS 05/18/24 05/18/24 History Patient History Medical History Sepsis Tubular adenoma of colon Antiplatelet or antithrombotic long-term use Health care maintenance Screening PSA (prostate specific antigen) Personal history of diabetic foot ulcer Elevated alkaline phosphatase level Paroxysmal atrial fibrillation Cellulitis of foot, left Foreign body in foot, left Anemia Hypertension Internal hemorrhoids Raynauds phenomenon Tubular adenoma of colon Atrial flutter Hypomagnesemia Near syncope Elevated serum creatinine CHF (congestive heart failure) EF 20-25% Atrial fibrillation dx 08/2019 Cigarette smoker Palpitation Surgical History Hx of vasectomy History of colonoscopy History of cardiac cath 2016 (stent x 1) Family History Father Myocardial infarction Denies family history of Ovarian cancer Prostate cancer Breast cancer Lung cancer Colorectal cancer Stroke Social History Smoking Status: Never smoker Tobacco Type: Cigarettes Age Started Using Tobacco: 19; packs per day: 0.5; Cigarettes Per Day: 0.5 pack per day; Second Hand Exposure: No; Do You Dip or Chew Tobacco: No; Tobacco Cessation Education Requested by Patient: No Hx Alcohol Use: No Hx Substance Use: No Preferred Language: Nepali Communication Ability: Effective Visual Impairment: No Limitations Hearing Ability: Normal 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 Beliefs That Will Affect Care: None marital status: Current Living Situation: Alone Current Living Situation Comment: brother and brother's girlfriend current occupational status: employed How many Children do You have: 1 How many Children do You have Comment: Daughter Other Information That Helps Us Care for You: No Feels Safe at Home: Yes Safety Concerns: Feels Safe At This Time Childhood Exposure to Second-Hand Smoke: Yes caffeine: Yes during the past year weight has: remained stable Dental Care, Regularly: Yes Physical Activity Frequency: Does not Exercise Seatbelt Use: always Sunscreen Use: No Assistive Devices: None Physical Exam Skin: Left foot with ulceration present plantar aspect submetatarsal 4. There is some granular tissue with nonviable tissue within the wound base very little callus tissue surrounding the ulceration itself no heavy drainage no malodor there is some mild lower extremity swelling of the left foot and erythema present on the dorsal lateral aspect of the left foot. Consistent with known history of cellulitis. New findings of recent MRI showing acute osteomyelitis of the left foot fourth metatarsal head. Pulses are notably nonpalpable of the dorsalis pedis pulse and nonpalpable posterior tibial pulse likely secondary to swelling. Known history of arterial disease. Results & Data Vital Signs (Past 12 Hours) Vital Signs Temp Pulse Pulse Resp BP Pulse Ox O2 Del Method 05/19/24 11:28 36.4 C L 88 18 130/79 96 Room Air 05/19/24 08:00 Room Air 05/19/24 07:03 36.7 C 92 H 18 149/79 H 91 Room Air 05/19/24 07:00 87 05/19/24 03:59 36.6 C 97 H 18 121/74 94 Room Air
--- NOTE | 2024-05-19 14:11 | Hospitalist Progress Note ---
Date of Service May 19, 2024 Assessment & Plan (1) Sepsis: Plan: Presented to ED for acute progression of his known left diabetic foot wound with significant cellulitis overnight Met sepsis criteria on arrival with tachycardia of 140, leukocytosis of 12, and source being his known diabetic foot wound Lactate is within normal limits, Pro-Med 0.03, patient is nontoxic-appearing Was given a dose of cefepime and vancomycin in the ED, completed 1 L NSS and currently receiving second 1 L NSS bolus time of admission Continue cefepime and vancomycin for now Follow blood cultures (2) Diabetic ulcer of left foot associated with diabetes mellitus due to underlying condition, with fat layer exposed: Plan: Was admitted last month for the same issue and underwent antibiotic treatment Has been following with the wound care, 1 visit thus far, wound was debrided and patient was placed in immobilizing boot Infection continues to progress, concerns for possible left fourth toe ost eomyelitis on x-ray today, Also confirmed on MRI as acute osteomyelitis -Podiatry thinks that difficulty with wound healing is probably from his poor circulation due to PAD Wound cultures from 05/13/2024 growing pansensitive E. coli and Pseudomonas Will continue with cefepime and vancomycin for now, follow blood cultures Podiatry consulted -Vascular also consulted on account of poor wound healing from his PAD (3) Permanent atrial fibrillation: Plan: Noted to be in atrial flutter on arrival with heart rate in the 140s Patient has known history of both atrial fibrillation and flutter, did have his a.m. doses of metoprolol and Eliquis prior to arrival Heart rate currently controlled after initial resuscitation in the ED Will continue home metoprolol hold Eliquis for now as he may need to go to the OR during this admission Continue to monitor on telemetry (4) Foot osteomyelitis: Plan: Osteomyelitis of the left foot As confirmed on MRI Podiatry has been consulted, if there is going to be some debridement, he may not need antibiotics for 6 weeks (5) Heart failure with reduced ejection fraction: Plan: Currently euvolemic on exam After patient completes his second liter NSS bolus will hold ongoing IV fluids for now as he is stable and nontoxic-appearing Hold Jardiance for now (6) Hypertension: Plan: Currently stable Will plan to continue home amlodipine (7) Coronary artery disease: Plan: Continue statin and aspirin (8) Cigarette smoker: Plan: Continue to encourage smoking cessation Continue full dose nicotine patch and as needed nicotine gum (9) Controlled diabetes mellitus type 2 with complications: Plan: Monitor BSG ACHS, goal is [id number] Hold metformin and dulaglutide for now Normally takes 24 units a.m. Lantus, had his a.m. dose today Will start 12 units Lantus twice daily starting tomorrow morning Start CF of 45 and CR 15 ACHS for now Adjust regimen as needed Plan Continue hospitalization, awaiting evaluation by vascular surgery Admission and Anticipated Discharge Date Admission Date: May 18, 2024 Subjective Patient seen and examined, working with diet, said he has been n.p.o., anticipating surgery. Review of Systems Review of Systems: All systems reviewed are negative, apart from the ones contained in the history. Physical Exam Physical Exam: The patient is awake, alert and oriented 3, well developed and well nourished, normocephalic and atraumatic, lying in bed and in no acute distress. HEENT--PERRL, EOMI, mucous membranes and oropharynx mildly dry Neck--supple. No JVD. No bruits. Thyroid normal, trachea midline, no adenopathy. Heart--normal S1 and S2. No murmurs, rubs or gallops. Lungs--clear bilaterally, no respiratory distress, no accessory muscle use. Abdomen--normal bowel sounds and soft. Extremities--no cyanosis or clubbing. No edema. Dermatologic--normal skin turgor, normal color, no abnormal lymph nodes, no rash. Neurologic--cranial nerves II through XII grossly intact. Rheumatologic--normal range of motion. Psychiatric--normal affect. Results & Data Results & Data Vital Signs (Past 12 Hours) Vital Signs Temp Pulse Pulse Resp BP Pulse Ox O2 Del Method 05/19/24 13:58 72 05/19/24 11:28 97.5 F L 88 18 130/79 96 Room Air 05/19/24 08:00 Room Air 05/19/24 07:03 98.1 F 92 H 18 149/79 H 91 Room Air 05/19/24 07:00 87 05/19/24 03:59 97.9 F 97 H 18 121/74 94 Room Air PG Care Time/CCT Total # of Minutes Spent Total Time Spent with Patient: Total time spent is greater than 50% in coordination of care (as documented) at patient's floor/unit and/or counseling patient: Coding Level of Care Code 61351 SUB INP/OBS CARE 35MIN Diagnoses Sepsis A41.9 Diabetic ulcer of left midfoot associated with diabetes mellitus due to underlying condition, with fat layer exposed E08.621; L97.422 Diabetic foot ulcer location: midfoot Permanent atrial fibrillation I48.21 Foot osteomyelitis M86.9 Heart failure with reduced ejection fraction I50.20 Primary hypertension I10 Hypertension type: primary hypertension Coronary artery disease I25.10 Cigarette smoker F17.210 Controlled type 2 diabetes mellitus with complication, with long-term current use of insulin E11.8; Z79.4 Diabetes mellitus fpc insulin use: with fpc use Time Spent (min) 35 (2) Diabetic ulcer of left foot associated with diabetes mellitus due to underlying condition, with fat layer exposed Diabetic foot ulcer location: midfoot Qualified Code(s): E08.621 - Diabetes mellitus due to underlying condition with foot ulcer; L97.422 - Non-pressure chronic ulcer of left heel and midfoot with fat layer exposed (6) Hypertension Hypertension type: primary hypertension Qualified Code(s): I10 - Essential (primary) hypertension (9) Controlled diabetes mellitus type 2 with complications Diabetes mellitus parts counterman insulin use: with parts counterman use Qualified Code(s): E11.8 - Type 2 diabetes mellitus with unspecified complications; Z79.4 - long term care social worker (current) use of insulin
[2024-05-19] MEDS: ACETAMINOPHEN 325 MG TAB PO PRN (19:40)
[2024-05-20 05:43] LABS: Basophils # (auto) 0.06 K/uL (0.00-0.20); Basophils % (auto) 0.7 %; Eosinophils # (auto) 0.28 K/uL (0.00-0.50); Eosinophils % (auto) 3.1 %; Hematocrit (blood only) 42.3 % (42.0-52.0); Hemoglobin 14.1 g/dl (14.0-18.0); Immature Granulocytes # (auto) 0.02 K/uL (0.01-0.20); Immature Granulocytes % (auto) 0.2 %; Lymphocytes # (auto) 0.95 K/uL (1.20-3.40); Lymphocytes % (auto) 10.4 %; Mean Corpuscular Hemoglobin 31.4 pg (25.0-34.0); Mean Corpuscular Hgb Conc 33.3 g/dL (32.0-36.0); Mean Corpuscular Volume 94.2 fL (80.0-100.0); Mean Platelet Volume 9.2 fL (9.4-12.4); Monocytes # (auto) 0.76 K/uL (0.11-0.59); Monocytes % (auto) 8.3 %; Neutrophils # (auto) 7.08 K/uL (1.40-6.50); Neutrophils % (auto) 77.3 %; Platelet Count 215 K/uL (130-400); RDW Coefficient of Variation 13.5 % (11.5-14.5); RDW Standard Deviation 47.1 fL (36.4-46.3); Red Blood Count 4.49 M/uL (4.70-6.10); White Blood Count 9.15 K/ul (4.8-10.8)
[2024-05-20 06:01] LABS: Albumin Globulin Ratio 1.5 (0.9-2); Albumin Level 3.7 gm/dl (3.4-5.0); Bilirubin,Total 0.6 mg/dl (0.2-1.0); Calcium 9.3 mg/dl (8.6-10.3); Creatinine Clr Calc Pharmacy 83.3 ml/min; Est GFR (African American) 89.9 ml/min; Est GFR (Non-African American) 77.5 ml/min; Globulin 2.4 gm/dl (2.5-4.0); Magnesium 1.7 mg/dl (1.7-2.4); Potassium 4.5 mmol/L (3.5-5.1); Total Protein 6.1 gm/dl (6.0-8.3)
[2024-05-20 06:17] LABS: INR 1.1 (0.9-1.1); Prothrombin Time 11.7 Seconds (9.0-12.0)
--- NOTE | 2024-05-20 07:10 | Ultrasound Report ---
US arterial duplex LE BI HISTORY: 69 years-old Male PAD peripheral arterial disease. History of left-sided SHREE of 0.85. COMPARISON: Duplex venous Doppler 12/30/2019, CTA runoff 04/01/2024 TECHNIQUE: Lower extremity arterial ultrasound with segmental pressures FINDINGS: Segmental pressures: Right sided SHREE of 0.82, left-sided SHREE of 0.73. RIGHT-diffuse atherosclerosis. Triphasic waveforms in the common femoral artery with predominantly mo nophasic waveforms within the remainder of the right lower leg. No arterial occlusion or significantl y elevated peak systolic velocities identified. Diminished dampened flow is noted within the arteries of the lower leg. LEFT-diffuse atherosclerosis. Monophasic waveforms throughout. Elevated peak systolic velocities with in the proximal superficial femoral artery, peak systolic velocities measuring up to 218 cm/s. No art erial occlusion identified. Dampened flow with spectral broadening noted throughout the lower leg wit h diminished waveforms, most pronounced within the proximal peroneal artery. IMPRESSION: 1. Extensive atherosclerosis with predominantly monophasic waveforms in the lower legs. 2. No arterial occlusion identified. 3. Elevated peak systolic velocities within the left superficial femoral artery compatible with lumin al stenosis. 4. Right-sided SHREE of 0.82, left-sided SHREE of 0.73 (this has worsened compared to the 12/30/2019 study) . ACT 112: Negative or not required by law. The above report was generated using voice recognition software. It may contain grammatical, syntax o r spelling errors. Electronically signed by: Faheem Bueno M.D. 05/20/2024 7:07 AM
[2024-05-20] MEDS: VANCOMYCIN LEVEL ONE (08:34)
--- NOTE | 2024-05-20 09:08 | Pharmacy Report ---
Pharmacy PK ABX Note - Date of Service May 20, 2024 - Assessment and Plan Assessment 05/20: * Day # 2 of antimicrobial therapy * Preliminary BC reported no growth at 24 hours * Vancomycin level obtained this AM = 14.8 mcg/mL. This is predicted to achieve a AUC/IVA of 487 mg/L.hr. 69 year old M receiving Vancomycin and cefepime for treatment of recurrent infection of the left foot with concerns for possible osteomyelitis seen on x- ray today. * Patient was admitted last month for the same issue (received vancomycin and ceftriaxone and discharged on oral clindamycin)and has been following with wound care--wound was debrided and patient placed in immobilizing boot. Infe ction continued to progress * Wound cultures from 05/13/24 grew gonzales sensitive E.coli and Pseudomonas. Prior history of MRSA seen in toe culture in 2019. * Blood cultures currently pending. Plan Vancomycin * Continue current regimen: 1000 mg IV every 12 hours * This is predicted to achieve target AUC/IVA of 400-600 mg/L.hr * Predicted AUC at steady state: 487 mg/L.hr * Will repeat level in the next 48-72 hours if therapy is continued and/or change in patient clinical status Pharmacy will continue to follow and will adjust dose/frequency as necessary. Thank you.
--- NOTE | 2024-05-20 10:54 | Consultation ---
Date of Consultation May 20, 2024 Assessment & Plan (1) Peripheral arterial disease: Pt with moderate PAD and osteomyelitis of L foot. Arterial US demonstrates no changes, SHREE maintained at 0.73. CTA abd/pelvis demonstrates 3 vessel runoff to foot. Internal iliac artery occlusions noted on CTA are not relevant to lower extremity arterial flow. External iliac arteries are patent. Wound does not appear necrotic, toes with good cap refill. Vascular surgical intervention not planned, but will be happy to reeval next week or sooner if necrosis of wound noted. Recommend podiatry proceed with necessary surgical intervention. History of Present Illness Reason for Consultation: PAD Attending Physician: Gregoria Reid MD History of Present Illness 69 yo m with hx of PAD, HTN, DMII, CAD, dysipidemia, neuropathy, cardiomyopathy, a fib on eliquis, COPD, STEMI, admitted with L foot infection, seen in consultation today for PAD. Pt known to Dr Churchill since February 2024 for PAD, US imaging at that time demonstrated diffuse disease and LLE SHREE of 0.73. CTA abd/pelvis with runoff was ordered to better eval, and this demonstrated 3 vessel runoff to LLE, with moderate diffuse disease otherwise. No wounds were noted at these office visits. A few weeks later, pt was admitted for sepsis d/t a L foot wound, was reeval and no vascular intervention was recommended. Pt was on abx and following with podiatry and wound care after discharge. Pt states he thought his foot was doing well until 2 nights ago when he developed edema and erythema of L foot, so came to [facility] again. Pt currently states the erythema and pain is improved. States the edema is still significant. Denies calf claudication, rest pain, discoloration of his toes. Denies GAITAN, fever, chest pain, SOB, abd pain, N/V, other complaints. Arterial US performed yesterday demonstrates no significant changes from previous imaging. SHREE remains 0.73. Allergies Allergy/AdvReac Type Severity Reaction Status Date / Time No Known Allergies Allergy Verified 05/18/24 10:40 Home Medications Medication Instructions Recorded Confirmed Type ascorbic acid (vitamin C) 500 mg 500 mg PO DAILY 03/11/20 05/18/24 History tablet Lactobacillus 1 cap PO DAILY 04/27/20 05/18/24 History acidophilus-Bifidobac.animalis 31 billion cell capsule aspirin 81 mg tablet,delayed 81 mg PO DAILY #30 tabs 04/27/20 05/18/24 History release cyanocobalamin (vitamin B-12) 1,000 mcg PO DAILY 04/27/20 05/18/24 History 1,000 mcg tablet (Vitamin B-12) cholecalciferol (vitamin D3) 50 50 mcg PO DAILY 06/23/21 05/18/24 History mcg (2,000 unit) capsule nitroglycerin 0.4 mg sublingual 0.4 mg sublingual Q5M PRN Chest 01/09/23 05/18/24 Rx tablet Pain #25 tabs pen needle, diabetic 32 gauge x #100 ea 05/21/23 05/13/24 Rx 5/32" (BD Rebecca 2nd Gen Pen Needle) arginine HCl (L-arginine) 1,000 mg 1,000 mg PO TID 07/05/23 05/18/24 History tablet empagliflozin 25 mg tablet 25 mg PO QAM #90 tabs 08/10/23 05/18/24 Rx (Jardiance) OneTouch Ultra Test (blood sugar #300 ea 09/03/23 05/13/24 Rx diagnostic) lisinopril 40 mg tablet 40 mg PO DAILY 90 days #90 tabs 09/03/23 05/18/24 Rx albuterol sulfate 90 mcg/actuation 2 puff inhalation Q6H PRN 12/14/23 05/18/24 Rx aerosol inhaler shortness of breath or wheezing #8.5 grams metoprolol succinate 25 mg 25 mg PO DAILY #90 tabs 01/08/24 05/18/24 Rx tablet,extended release 24 hr apixaban 5 mg tablet 5 mg PO BID #180 tabs 03/04/24 05/18/24 Rx montelukast 10 mg tablet 10 mg PO DAILY #30 tabs 03/10/24 05/18/24 Rx (Singulair) lancets 33 gauge (OneTouch Delica #300 ea 03/17/24 05/13/24 Rx Plus Lancet) amlodipine 5 mg tablet 5 mg PO DAILY #90 tabs 03/26/24 05/18/24 Rx insulin glargine 100 unit/mL (3 24 unit (0.24 mL) subcut QAM #30 mL 04/23/24 05/18/24 Rx mL) subcutaneous pen (Lantus Solostar U-100 Insulin) dulaglutide 3 mg/0.5 mL 3 mg (0.5 mL) subcut Q7D #6 mL 04/24/24 05/18/24 Rx subcutaneous pen injector metformin 1,000 mg tablet 1,000 mg PO BID #180 tabs 04/29/24 05/18/24 Rx ciprofloxacin HCl 500 mg tablet 500 mg PO BID 14 days #28 tabs 05/16/24 05/18/24 Rx atorvastatin 80 mg tablet 0 mg PO HS 05/18/24 05/18/24 History Patient History Medical History Sepsis Tubular adenoma of colon Antiplatelet or antithrombotic long-term use Health care maintenance Screening PSA (prostate specific antigen) Personal history of diabetic foot ulcer Elevated alkaline phosphatase level Paroxysmal atrial fibrillation Cellulitis of foot, left Foreign body in foot, left Anemia Hypertension Internal hemorrhoids Raynauds phenomenon Tubular adenoma of colon Atrial flutter Hypomagnesemia Near syncope Elevated serum creatinine CHF (congestive heart failure) EF 20-25% Atrial fibrillation dx 08/2019 Cigarette smoker Palpitation Surgical History Hx of vasectomy History of colonoscopy History of cardiac cath 2016 (stent x 1) Family History Father Myocardial infarction Denies family history of Ovarian cancer Prostate cancer Breast cancer Lung cancer Colorectal cancer Stroke Social History Smoking Status: Never smoker Tobacco Type: Cigarettes Age Started Using Tobacco: 19; packs per day: 0.5; Cigarettes Per Day: 0.5 pack per day; Second Hand Exposure: No; Do You Dip or Chew Tobacco: No; Tobacco Cessation Education Requested by Patient: No Hx Alcohol Use: No Hx Substance Use: No Preferred Language: German Communication Ability: Effective Visual Impairment: No Limitations Hearing Ability: Normal Trimmer And Reinforcer Required: No Beliefs That Will Affect Care: None marital status: Current Living Situation: Alone Current Living Situation Comment: brother and brother's girlfriend current occupational status: employed How many Children do You have: 1 How many Children do You have Comment: Daughter Other Information That Helps Us Care for You: No Feels Safe at Home: Yes Safety Concerns: Feels Safe At This Time Childhood Exposure to Second-Hand Smoke: Yes caffeine: Yes during the past year weight has: remained stable Dental Care, Regularly: Yes Physical Activity Frequency: Does not Exercise Seatbelt Use: always Sunscreen Use: No Assistive Devices: Walker Review of Systems Review of Systems: All systems reviewed & are unremarkable except as noted in HPI & below Physical Exam Constitutional: WD/WN, vitals as above cooperative and comfortable; not in distress Respiratory: normal respiratory effort Auscultation: lungs clear to auscultation bilaterally and + diminished lung sounds Cardiovascular: Rate/Rhythm: + irregularly irregular Vessels: femoral pulses present (+2 BLE), posterior tibial pulses present (dopplerable LLE, no signal RLE) and dorsalis pedis pulses present (dopplerable BLE); + abnormal peripheral pulses Extremities: normal capillary refill and + edema (LLE only +3) Gastrointestinal (Abdomen): Inspection/Auscultation: abdomen normal to inspection and normal bowel sounds Percussion/Palpation: abdomen soft; abd omen nontender Musculoskeletal: no cyanosis or clubbing, extremities motor strength 5/5 Skin: + wound (L lateral/plantar foot deep ulc er, +erythema, mild drainage) Neurologic: moves all extremities and awake; no focal motor deficits and not confused Psychiatric: A+Ox3, euthymic affect Results & Data Vital Signs (Past 12 Hours) Vital Signs Temp Pulse Pulse Resp BP Pulse Ox O2 Del Method 05/20/24 08:00 116 H 05/20/24 07:17 36.6 C 91 H 18 114/75 94 Room Air 05/20/24 03:28 36.5 C 104 H 19 132/79 93 Room Air 05/19/24 23:50 36.7 C 82 18 130/76 94 Room Air
--- NOTE | 2024-05-20 12:07 | Hospitalist Progress Note ---
Date of Service May 20, 2024 Assessment & Plan (1) Sepsis: Plan: Presented to ED for acute progression of his known left diabetic foot wound with significant cellulitis overnight Met sepsis criteria on arrival with tachycardia of 140, leukocytosis of 12, and source being his known diabetic foot wound Lactate is within normal limits, Pro-Med 0.03, patient is nontoxic-appearing Was given a dose of cefepime and vancomycin in the ED, completed 1 L NSS and currently receiving second 1 L NSS bolus time of admission Continue cefepime and vancomycin for now Follow blood cultures, negative for now (2) Diabetic ulcer of left foot associated with diabetes mellitus due to underlying condition, with fat layer exposed: Plan: Was admitted last month for the same issue and underwent antibiotic treatment Has been following with the wound care, 1 visit thus far, wound was debrided and patient was placed in immobilizing boot Infection continues to progress, concerns for possible left fourth toe osteomyelitis on x-ray today, Also confirmed on MRI as acute osteomyelitis -Podiatry thinks that difficulty with wound healing is probably from his poor circulation due to PAD Wound cultures from 05/13/2024 growing pansensitive E. coli and Pseudomonas Will continue with cefepime and vancomycin for now, follow blood cultures Podiatry consulted -Vascular also consulted on account of poor wound healing from his PAD, however, per vascular, his SHREE has not changed since their last evaluation. No surgical plans for now -Podiatry not comfortable doing surgery on account of poor wound healing possibililty, plan is for a 2nd vascular opinion. Dr Edward consulted (3) Permanent atrial fibrillation: Plan: Noted to be in atrial flutter on arrival with heart rate in the 140s Patient has known history of both atrial fibrillation and flutter, did have his a.m. doses of metoprolol and Eliquis prior to arrival Heart rate currently controlled after initial resuscitation in the ED Will continue home metoprolol hold Eliquis for now as he may need to go to the OR during this admission Continue to monitor on telemetry (4) Foot osteomyelitis: Plan: Osteomyelitis of the left foot As confirmed on MRI Podiatry has been consulted, if there is going to be some debridement, he may not need antibiotics for 6 weeks (5) Heart failure with reduced ejection fraction: Plan: Currently euvolemic on exam After patient completes his second liter NSS bolus will hold ongoing IV fluids for now as he is stable and nontoxic-appearing Hold Jardiance for now (6) Hypertension: Plan: Currently stable Will plan to continue home amlodipine (7) Coronary artery disease: Plan: Continue statin and aspirin (8) Cigarette smoker: Plan: Continue to encourage smoking cessation Continue full dose nicotine patch and as needed nicotine gum (9) Controlled diabetes mellitus type 2 with complications: Plan: Monitor BSG ACHS, goal is [id number] Hold metformin and dulaglutide for now Normally takes 24 units a.m. Lantus, had his a.m. dose today Will start 12 units Lantus twice daily starting tomorrow morning Start CF of 45 and CR 15 ACHS for now Adjust regimen as needed Plan Continue hospitalization, Admission and Anticipated Discharge Date Admission Date: May 18, 2024 Subjective Patient seen and examined, no new complaints today Review of Systems Review of Systems: All systems reviewed are negative, apart from the ones contained in the history. Physical Exam Physical Exam: The patient is awake, alert and oriented 3, well developed and well nourished, normocephalic and atraumatic, lying in bed and in no acute distress. HEENT--PERRL, EOMI, mucous membranes and oropharynx mildly dry Neck--supple. No JVD. No bruits. Thyroid normal, trachea midline, no adenopathy. Heart--normal S1 and S2. No murmurs, rubs or gallops. Lungs--clear bilaterally, no respiratory distress, no accessory muscle use. Abdomen--normal bowel sounds and soft. Extremities--no cyanosis or clubbing. No edema. Dermatologic--normal skin turgor, normal color, no abnormal lymph nodes, no rash. Neurologic--cranial nerves II through XII grossly intact. Rheumatologic--normal range of motion. Psychiatric--normal affect. Results & Data Results & Data Vital Signs (Past 12 Hours) Vital Signs Temp Pulse Pulse Resp BP Pulse Ox O2 Del Method 05/20/24 11:26 97.7 F 104 H 18 120/74 97 Room Air 05/20/24 08:00 116 H 05/20/24 07:17 97.9 F 91 H 18 114/75 94 Room Air 05/20/24 03:28 97.7 F 104 H 19 132/79 93 Room Air PG Care Time/CCT Total # of Minutes Spent Total Time Spent with Patient: Total time spent is greater than 50% in coordination of care (as documented) at patient's floor/unit and/or counseling patient: Coding Level of Care Code 68807 SUB INP/OBS CARE 2/35MIN Diagnoses Sepsis A41.9 Diabetic ulcer of left midfoot associated with diabetes mellitus due to underlying condition, with fat layer exposed E08.621; L97.422 Diabetic foot ulcer location: midfoot Permanent atrial fibrillation I48.21 Foot osteomyelitis M86.9 Heart failure with reduced ejection fraction I50.20 Primary hypertension I10 Hypertension type: primary hypertension Coronary artery disease I25.10 Cigarette smoker F17.210 Controlled type 2 diabetes mellitus with complication, with long-term current use of insulin E11.8; Z79.4 Diabetes mellitus terminal clerk insulin use: with nursing home use Time Spent (min) 35 (2) Diabetic ulcer of left foot associated with diabetes mellitus due to underlying condition, with fat layer exposed Diabetic foot ulcer location: midfoot Qualified Code(s): E08.621 - Diabetes mellitus due to underlying condition with foot ulcer; L97.422 - Non-pressure chronic ulcer of left heel and midfoot with fat layer exposed (6) Hypertension Hypertension type: primary hypertension Qualified Code(s): I10 - Essential (primary) hypertension (9) Controlled diabetes mellitus type 2 with complications Diabetes mellitus nursing home insulin use: with terminal clerk use Qualified Code(s): E11.8 - Type 2 diabetes mellitus with unspecified complications; Z79.4 - group home (current) use of insulin
--- NOTE | 2024-05-20 16:03 | Podiatry Progress Note ---
Date of Service May 20, 2024 Assessment & Plan (1) Cellulitis of left foot: Plan: Patient will be evaluated to see if any further intervention is needed for the left foot. Will continue dressings consisting of Aquacel silver and Allevyn foam. Dressings removed at bedside today patient noted that the dressings were just replaced earlier today so they were reapplied no significant changes noted to the wound base or wound itself. Will continue to follow patient. (2) Foot osteomyelitis: (3) Diabetic ulcer of left foot associated with diabetes mellitus due to underlying condition, with fat layer exposed: (4) Diabetic peripheral neuropathy associated with type 2 diabetes mellitus: Admission and Anticipated Discharge Date Admission Date: May 18, 2024 Subjective Patient is a very pleasant 69-year-old male known history of arterial disease, diabetes, smoking seen at bedside today for follow-up of a left plantar foot submetatarsal 4 ulcer. Patient overall is feeling well his white count continues to trend down. Foot continues to have some mild swelling and erythema but has improved since when he was first admitted to the hospital. Will have evaluation to ensure that the monophasic flow seen throughout the foot on the recent arterial study ordered and the SHREE 0.73 does not need further intervention for wound healing. Physical Exam Skin: Dressings removed from left foot and ulceration evaluated there is some yellow eschar present but no heavy malodor or drainage there continues to be +1 pitting edema on the dorsal aspect of the left foot with mild erythema laterally. Pedal pulses remain nonpalpable of the dorsalis pedis pulse. Results & Data Results & Data Vital Signs (Past 12 Hours) Vital Signs Temp Pulse Pulse Resp BP Pulse Ox O2 Del Method 05/20/24 15:52 36.3 C L 89 18 112/70 96 Room Air 05/20/24 15:00 89 05/20/24 11:26 36.5 C 104 H 18 120/74 97 Room Air 05/20/24 08:00 116 H 05/20/24 07:17 36.6 C 91 H 18 114/75 94 Room Air (3) Diabetic ulcer of left foot associated with diabetes mellitus due to underlying condition, with fat layer exposed Diabetic foot ulcer location: midfoot Qualified Code(s): E08.621 - Diabetes mellitus due to underlying condition with foot ulcer; L97.422 - Non-pressure chronic ulcer of left heel and midfoot with fat layer exposed
--- NOTE | 2024-05-20 23:52 | Vascular Medicine Consultation ---
Date of Consultation May 20, 2024 Assessment & Plan (1) Peripheral arterial disease: 2. Diabetic left foot ulcer with osteomyelitis 3. CAD post RCA TALISHA 4. Permanent AF Patient seen today in the setting of non-healing diabetic foot ulcer with osteomyelitis. Exam and non-invasive vascular testing suggestive of severe arterial insufficiency. Recent ultrasound suggests hemodynamically significant left SFA disease with diminished, monophasic waveforms downstream. Appears also to have possible significant RISHABH disease. RISHABH likely direct inline vessel to wound bed. With current wound feel limb is threatened and there is potential benefit from revascularization. Recommend proceeding with bilateral LE angiogram and possible endovascular intervention. Discussed risks, benefits, alternatives of procedure and he is willing to proceed. Plan to perform procedure tomorrow afternoon. Please keep n.p.o. past midnight. History of Present Illness Attending Physician: Gregoria Reid MD History of Present Illness Mr. Bowie is a very pleasant 69-year-old man seen today in the setting of left plantar diabetic foot ulcer in the setting of PAD. Patient followed by Dr. Sheppard for his cardiac care. Prior history includes type 2 diabetes with prior DFU involving left third toe, CAD post acute DE with TALISHA to RCA 10/2015, permanent AF, hypertension dyslipidemia, ongoing tobacco use. Has been dealing with diabetic foot ulcer since beginning of March. Seen regularly by podiatry Dr. Layton Nava and is also seeing wound clinic. Wound healing plateaued. Hospitalized with sepsis for 4 days 04/17/2024. Hospitalized again 2 days ago in the setting of left lower extremity cellulitis. Improved with IV antibiotics (cefepime, vancomycin), prior wound cultures 05/13 have grown out E. coli, Pseudomonas. MRI suggestive of osteomyelitis involving left fourth metatarsal head and possible lateral aspect of third metatarsal. Reports intermittent exertional calf pain with walking. Denies significant rest pain. Prior vascular studies include: SHREE/TBI 01/2020: Right 0.73/0.48 (74); left 0.9/0.53 (81) CTA 03/2024: Occluded bilateral internal iliac arteries. Patent iliacs through popliteal with moderate calcified disease. Two-vessel runoff to the level of the foot via RISHABH/SUSPECT ARTIST. Arterial duplex 04/2024: Right SHREE 0.82, left 0.73. Left SFA stenosis (PSV 218), monophasic distal flow with dampened waveforms. Social history: Works in [employer] at [employer] Allergies Allergy/AdvReac Type Severity Reaction Status Date / Time No Known Allergies Allergy Verified 05/18/24 10:40 Home Medications Medication Instructions Recorded Confirmed Type ascorbic acid (vitamin C) 500 mg 500 mg PO DAILY 03/11/20 05/18/24 History tablet Lactobacillus 1 cap PO DAILY 04/27/20 05/18/24 History acidophilus-Bifidobac.animalis 31 billion cell capsule aspirin 81 mg tablet,delayed 81 mg PO DAILY #30 tabs 04/27/20 05/18/24 History release cyanocobalamin (vitamin B-12) 1,000 mcg PO DAILY 04/27/20 05/18/24 History 1,000 mcg tablet (Vitamin B-12) cholecalciferol (vitamin D3) 50 50 mcg PO DAILY 06/23/21 05/18/24 History mcg (2,000 unit) capsule nitroglycerin 0.4 mg sublingual 0.4 mg sublingual Q5M PRN Chest 01/09/23 05/18/24 Rx tablet Pain #25 tabs pen needle, diabetic 32 gauge x #100 ea 05/21/23 05/13/24 Rx 5/32" (BD Rebecca 2nd Gen Pen Needle) arginine HCl (L-arginine) 1,000 mg 1,000 mg PO TID 07/05/23 05/18/24 History tablet empagliflozin 25 mg tablet 25 mg PO QAM #90 tabs 08/10/23 05/18/24 Rx (Jardiance) OneTouch Ultra Test (blood sugar #300 ea 09/03/23 05/13/24 Rx diagnostic) lisinopril 40 mg tablet 40 mg PO DAILY 90 days #90 tabs 09/03/23 05/18/24 Rx albuterol sulfate 90 mcg/actuation 2 puff inhalation Q6H PRN 12/14/23 05/18/24 Rx aerosol inhaler shortness of breath or wheezing #8.5 grams metoprolol succinate 25 mg 25 mg PO DAILY #90 tabs 01/08/24 05/18/24 Rx tablet,extended release 24 hr apixaban 5 mg tablet 5 mg PO BID #180 tabs 03/04/24 05/18/24 Rx montelukast 10 mg tablet 10 mg PO DAILY #30 tabs 03/10/24 05/18/24 Rx (Singulair) lancets 33 gauge (OneTouch Delica #300 ea 03/17/24 05/13/24 Rx Plus Lancet) amlodipine 5 mg tablet 5 mg PO DAILY #90 tabs 03/26/24 05/18/24 Rx insulin glargine 100 unit/mL (3 24 unit (0.24 mL) subcut QAM #30 mL 04/23/24 05/18/24 Rx mL) subcutaneous pen (Lantus Solostar U-100 Insulin) dulaglutide 3 mg/0.5 mL 3 mg (0.5 mL) subcut Q7D #6 mL 04/24/24 05/18/24 Rx subcutaneous pen injector metformin 1,000 mg tablet 1,000 mg PO BID #180 tabs 04/29/24 05/18/24 Rx ciprofloxacin HCl 500 mg tablet 500 mg PO BID 14 days #28 tabs 05/16/24 05/18/24 Rx atorvastatin 80 mg tablet 0 mg PO HS 05/18/24 05/18/24 History Patient History Medical History Sepsis Tubular adenoma of colon Antiplatelet or antithrombotic long-term use Health care maintenance Screening PSA (prostate specific antigen) Personal history of diabetic foot ulcer Elevated alkaline phosphatase level Paroxysmal atrial fibrillation Cellulitis of foot, left Foreign body in foot, left Anemia Hypertension Internal hemorrhoids Raynauds phenomenon Tubular adenoma of colon Atrial flutter Hypomagnesemia Near syncope Elevated serum creatinine CHF (congestive heart failure) EF 20-25% Atrial fibrillation dx 08/2019 Cigarette smoker Palpitation Surgical History Hx of vasectomy History of colonoscopy History of cardiac cath 2016 (stent x 1) Family History Father Myocardial infarction Denies family history of Ovarian cancer Prostate cancer Breast cancer Lung cancer Colorectal cancer Stroke Social History Smoking Status: Never smoker Tobacco Type: Cigarettes Age Started Using Tobacco: 19; packs per day: 0.5; Cigarettes Per Day: 0.5 pack per day; Second Hand Exposure: No; Do You Dip or Chew Tobacco: No; Tobacco Cessation Education Requested by Patient: No Hx Alcohol Use: No Hx Substance Use: No Preferred Language: Welsh Communication Ability: Effective Visual Impairment: No Limitations Hearing Ability: Normal Employee Counselor Required: No Beliefs That Will Affect Care: None marital status: Current Living Situation: Alone Current Living Situation Comment: brother and brother's girlfriend current occupational status: employed How many Children do You have: 1 How many Children do You have Comment: Daughter Other Information That Helps Us Care for You: No Feels Safe at Home: Yes Safety Concerns: Feels Safe At This Time Childhood Exposure to Second-Hand Smoke: Yes caffeine: Yes during the past year weight has: remained stable Dental Care, Regularly: Yes Physical Activity Frequency: Does not Exercise Seatbelt Use: always Sunscreen Use: No Assistive Devices: Walker Review of Systems Review of Systems: All systems reviewed & are unremarkable except as noted in HPI & below Physical Exam Physical Exam: General: Comfortable HEENT: Sclerae anicteric Lungs: Clear to auscultation bilaterally, no crackles or wheezes Cardiac: Irregular irregular, no murmurs Vascular: 2+ radial bilaterally. Nonpalpable popliteal pulses bilaterally. Nonpalpable DP/PT pulses bilaterally. Sluggish capillary refill on left particular involving 1st through 3rd digits. Plantar ulcer dressed. No surrounding erythema, odor. Abdomen: Soft, nontender Extremities: Well perfused, 1+ left lower extremity edema extending above ankle. Chronic venous stasis changes to bilateral shins Neuro: Diminished distally to light touch Psych: Alert orient x3, normal affect and mood Results & Data Vital Signs (Past 12 Hours) Vital Signs Temp Pulse Pulse Resp BP Pulse Ox O2 Del Method 05/20/24 20:02 97.5 F L 101 H 18 116/71 95 Room Air 05/20/24 15:52 97.3 F L 89 18 112/70 96 Room Air 05/20/24 15:00 89 PG Care Time/CCT Total # of Minutes Spent Total Time Spent with Patient: Total time spent is greater than 50% in coordination of care (as documented) at patient's floor/unit and/or counseling patient: Coding Level of Care Code 65930 INT INP/OBS CARE 3/75MIN Diagnoses Peripheral arterial disease I73.9
[2024-05-21 06:42] LABS: Basophils # (auto) 0.06 K/uL (0.00-0.20); Basophils % (auto) 0.8 %; Eosinophils % (auto) 3.8 %; Hematocrit (blood only) 40.3 % (42.0-52.0); Hemoglobin 13.8 g/dl (14.0-18.0); Immature Granulocytes # (auto) 0.03 K/uL (0.01-0.20); Immature Granulocytes % (auto) 0.4 %; Lymphocytes # (auto) 1.18 K/uL (1.20-3.40); Lymphocytes % (auto) 15.1 %; Mean Corpuscular Hemoglobin 31.7 pg (25.0-34.0); Mean Corpuscular Hgb Conc 34.2 g/dL (32.0-36.0); Mean Corpuscular Volume 92.6 fL (80.0-100.0); Mean Platelet Volume 9.5 fL (9.4-12.4); Monocytes # (auto) 0.85 K/uL (0.11-0.59); Monocytes % (auto) 10.9 %; Platelet Count 227 K/uL (130-400); RDW Coefficient of Variation 13.4 % (11.5-14.5); RDW Standard Deviation 45.9 fL (36.4-46.3); Red Blood Count 4.35 M/uL (4.70-6.10); White Blood Count 7.82 K/ul (4.8-10.8)
[2024-05-21 07:06] LABS: Albumin Globulin Ratio 1.5 (0.9-2); Albumin Level 3.5 gm/dl (3.4-5.0); BUN Creatinine Ratio 18.2 (10-20); Bilirubin,Total 0.5 mg/dl (0.2-1.0); Creatinine Clr Calc Pharmacy 84.1 ml/min; Est GFR (Non-African American) 78.5 ml/min; Globulin 2.4 gm/dl (2.5-4.0); Magnesium 1.8 mg/dl (1.7-2.4); Total Protein 5.9 gm/dl (6.0-8.3)
[2024-05-21 07:24] LABS: INR 1.1 (0.9-1.1); Prothrombin Time 11.9 Seconds (9.0-12.0)
--- NOTE | 2024-05-21 12:53 | Podiatry Progress Note ---
Date of Service May 21, 2024 Assessment & Plan (1) Cellulitis of left foot: Plan: Patient is set for arteriogram later this afternoon, once performed will follow- up for further assessment with regards to the amount of blood flow to the lower extremity. Patient overall has had a significant improvement with the IV antibiotics there is been a significant reduction in the swelling and redness and he had no acute concerns at today's visit. Will continue to follow patient. (2) Foot osteomyelitis: (3) Diabetic ulcer of left foot associated with diabetes mellitus due to underlying condition, with fat layer exposed: (4) Diabetic peripheral neuropathy associated with type 2 diabetes mellitus: Admission and Anticipated Discharge Date Admission Date: May 18, 2024 Subjective Patient is a very pleasant 69-year-old male known history of arterial disease, diabetes, smoking seen at bedside today Prior to his angiogram. Patient continues to feel well his white blood cell count was within normal limits neutrophils are within normal limits. Overall the swelling and erythema present on the foot that was still present yesterday has significantly reduced ulceration itself has not changed on the plantar aspect of the foot. - Patient has been n.p.o. for arteriogram had no concerns at today's visit. Physical Exam Skin: On physical evaluation today I noticed that there was significant reduction in the swelling there was still about +1 pitting edema but this was improved from yesterday's visit. The erythema present along the lateral aspect of the left foot has resolved and overall the foot itself is looking better. Results & Data Results & Data Vital Signs (Past 12 Hours) Vital Signs Temp Pulse Resp BP BP Pulse Ox O2 Del Method 05/21/24 11:00 36.7 C 104 H 18 123/76 93 Room Air 05/21/24 06:00 36.5 C 98 H 20 125/74 95 Room Air 05/21/24 03:08 36.4 C L 110 H 18 117/75 94 Room Air (3) Diabetic ulcer of left foot associated with diabetes mellitus due to underlying condition, with fat layer exposed Diabetic foot ulcer location: midfoot Qualified Code(s): E08.621 - Diabetes mellitus due to underlying condition with foot ulcer; L97.422 - Non-pressure chronic ulcer of left heel and midfoot with fat layer exposed
--- NOTE | 2024-05-21 13:07 | Hospitalist Progress Note ---
Date of Service May 21, 2024 Assessment & Plan (1) Sepsis: Plan: Presented to ED for acute progression of his known left diabetic foot wound with significant cellulitis overnight Met sepsis criteria on arrival with tachycardia of 140, leukocytosis of 12, and source being his known diabetic foot wound Lactate is within normal limits, Pro-Med 0.03, patient is nontoxic-appearing Was given a dose of cefepime and vancomycin in the ED, completed 1 L NSS and currently receiving second 1 L NSS bolus time of admission Continue cefepime and vancomycin for now Follow blood cultures, negative for now (2) Diabetic ulcer of left foot associated with diabetes mellitus due to underlying condition, with fat layer exposed: Plan: Was admitted last month for the same issue and underwent antibiotic treatment Has been following with the wound care, 1 visit thus far, wound was debrided and patient was placed in immobilizing boot Infection continues to progress, concerns for possible left fourth toe osteomyelitis on x-ray today, Also confirmed on MRI as acute osteomyelitis -Podiatry thinks that difficulty with wound healing is probably from his poor circulation due to PAD Wound cultures from 05/13/2024 growing pansensitive E. coli and Pseudomonas Will continue with cefepime and vancomycin for now, follow blood cultures Podiatry consulted -Vascular also consulted on account of poor wound healing from his PAD, however, per vascular, his SHREE has not changed since their last evaluation. No surgical plans for now -Podiatry not comfortable doing surgery on account of poor wound healing possibililty, plan is for a 2nd vascular opinion. Dr Edward consulted -Plan is for Lower extremity angiogram and possible endovascular intervention today (3) Permanent atrial fibrillation: Plan: Noted to be in atrial flutter on arrival with heart rate in the 140s Patient has known history of both atrial fibrillation and flutter, did have his a.m. doses of metoprolol and Eliquis prior to arrival Heart rate currently controlled after initial resuscitation in the ED Will continue home metoprolol hold Eliquis for now as he may need to go to the OR during this admission Continue to monitor on telemetry (4) Foot osteomyelitis: Plan: Osteomyelitis of the left foot As confirmed on MRI Podiatry has been consulted, if there is going to be some debridement, he may not need antibiotics for 6 weeks (5) Heart failure with reduced ejection fraction: Plan: Currently euvolemic on exam After patient completes his second liter NSS bolus will hold ongoing IV fluids for now as he is stable and nontoxic-appearing Hold Jardiance for now (6) Hypertension: Plan: Currently stable Will plan to continue home amlodipine (7) Coronary artery disease: Plan: Continue statin and aspirin (8) Cigarette smoker: Plan: Continue to encourage smoking cessation Continue full dose nicotine patch and as needed nicotine gum (9) Controlled diabetes mellitus type 2 with complications: Plan: Monitor BSG ACHS, goal is [id number] Hold metformin and dulaglutide for now Normally takes 24 units a.m. Lantus, had his a.m. dose today Will start 12 units Lantus twice daily starting tomorrow morning Start CF of 45 and CR 15 ACHS for now Adjust regimen as needed Plan Continue hospitalization, Admission and Anticipated Discharge Date Admission Date: May 18, 2024 Subjective patient seen and examined, plan is for OR today for arteriogram Review of Systems Review of Systems: All systems reviewed are negative, apart from the ones contained in the history. Physical Exam Physical Exam: The patient is awake, alert and oriented 3, well developed and well nourished, normocephalic and atraumatic, lying in bed and in no acute distress. HEENT--PERRL, EOMI, mucous membranes and oropharynx mildly dry Neck--supple. No JVD. No bruits. Thyroid normal, trachea midline, no adenopathy. Heart--normal S1 and S2. No murmurs, rubs or gallops. Lungs--clear bilaterally, no respiratory distress, no accessory muscle use. Abdomen--normal bowel sounds and soft. Extremities--no cyanosis or clubbing. No edema. Dermatologic--normal skin turgor, normal color, no abnormal lymph nodes, no rash. Neurologic--cranial nerves II through XII grossly intact. Rheumatologic--normal range of motion. Psychiatric--normal affect. Results & Data Results & Data Vital Signs (Past 12 Hours) Vital Signs Temp Pulse Pulse Resp BP BP BP 05/21/24 13:02 61 15 142/77 H 05/21/24 11:00 98.1 F 104 H 18 123/76 05/21/24 06:00 97.7 F 98 H 20 125/74 05/21/24 03:08 97.5 F L 110 H 18 117/75 Pulse Ox O2 Del Method 05/21/24 13:02 96 Room Air 05/21/24 11:00 93 Room Air 05/21/24 06:00 95 Room Air 05/21/24 03:08 94 Room Air PG Care Time/CCT Total # of Minutes Spent Total Time Spent with Patient: Total time spent is greater than 50% in coordination of care (as documented) at patient's floor/unit and/or counseling patient: Coding Level of Care Code 55420 SUB INP/OBS CARE 2/35MIN Diagnoses Sepsis A41.9 Diabetic ulcer of left midfoot associated with diabetes mellitus due to underlying condition, with fat layer exposed E08.621; L97.422 Diabetic foot ulcer location: midfoot Permanent atrial fibrillation I48.21 Foot osteomyelitis M86.9 Heart failure with reduced ejection fraction I50.20 Primary hypertension I10 Hypertension type: primary hypertension Coronary artery disease I25.10 Cigarette smoker F17.210 Controlled type 2 diabetes mellitus with complication, with long-term current use of insulin E11.8; Z79.4 Diabetes mellitus extermination inspector insulin use: with fci use Time Spent (min) 35 (2) Diabetic ulcer of left foot associated with diabetes mellitus due to underlying condition, with fat layer exposed Diabetic foot ulcer location: midfoot Qualified Code(s): E08.621 - Diabetes mellitus due to underlying condition with foot ulcer; L97.422 - Non-pressure chronic ulcer of left heel and midfoot with fat layer exposed (6) Hypertension Hypertension type: primary hypertension Qualified Code(s): I10 - Essential (primary) hypertension (9) Controlled diabetes mellitus type 2 with complications Diabetes mellitus extermination inspector insulin use: with fci use Qualified Code(s): E11.8 - Type 2 diabetes mellitus with unspecified complications; Z79.4 - buttermaker helper (current) use of insulin
--- NOTE | 2024-05-21 13:11 | Pre Anesthesia Assessment ---
Date of Service May 21, 2024 Pre Sedation Assessment Vital Signs Temp Pulse Pulse Resp BP BP BP 05/21/24 13:02 61 15 142/77 H 05/21/24 11:00 98.1 F 104 H 18 123/76 05/21/24 06:00 97.7 F 98 H 20 125/74 05/21/24 03:08 97.5 F L 110 H 18 117/75 05/20/24 23:30 97.5 F L 87 18 111/70 05/20/24 20:02 97.5 F L 101 H 18 116/71 05/20/24 15:52 97.3 F L 89 18 112/70 05/20/24 15:00 89 Pulse Ox O2 Del Method 05/21/24 13:02 96 Room Air 05/21/24 11:00 93 Room Air 05/21/24 06:00 95 Room Air 05/21/24 03:08 94 Room Air 05/20/24 23:30 93 Room Air 05/20/24 20:02 95 Room Air 05/20/24 15:52 96 Room Air 05/20/24 15:00 Cardiovascular + regular rate Respiratory + respiratory effort normal Pre-Sedation Airway Assessment Smoking Status: Never smoker Hx Sleep Apnea: No Hx Difficult Intubation: No Short, Thick Neck: No Thyromental Distance: > or= 3.5 Finger Breadths Oral Cavity: + WNL Mallampati Class: II ASA: ASA2 Procedure Planning Contraindications for Sedation: none Current Medications Reviewed: Yes Notes The planned sedation has been discussed with the patient. Informed Consent was obtained. I have identified the patient, determined the appropriateness of sedation and have assessed the patient immediately prior to the procedure. All medicine(s) and interventions are by my order.
[2024-05-21] MEDS: NITROGLYCERIN/D5W 100MCG/ML 20ML SYR ONE (13:27)
[2024-05-21] MEDS: fentaNYL citrate PF 100 MCG/2 ML VIAL ONE (14:54)
[2024-05-21] MEDS: MIDAZOLAM HCL 1 MG/ML 2ML VIAL ONE (14:54)
--- NOTE | 2024-05-21 15:15 | Post Anesthesia Assessment ---
Date of Service May 21, 2024 Post Sedation Assessment Vital Signs Temp Pulse Pulse Resp BP BP BP 05/21/24 14:58 96 H 18 135/85 05/21/24 13:02 61 15 142/77 H 05/21/24 11:00 98.1 F 104 H 18 123/76 05/21/24 06:00 97.7 F 98 H 20 125/74 05/21/24 03:08 97.5 F L 110 H 18 117/75 05/20/24 23:30 97.5 F L 87 18 111/70 05/20/24 20:02 97.5 F L 101 H 18 116/71 05/20/24 15:52 97.3 F L 89 18 112/70 Pulse Ox O2 Del Method 05/21/24 14:58 95 Room Air 05/21/24 13:02 96 Room Air 05/21/24 11:00 93 Room Air 05/21/24 06:00 95 Room Air 05/21/24 03:08 94 Room Air 05/20/24 23:30 93 Room Air 05/20/24 20:02 95 Room Air 05/20/24 15:52 96 Room Air Recovery Score Activity: Moves 4 extremities Respiration: Deep Breath/Cough Circulation: +/-20% PreAnes Value Consciousness: Fully Awake Oxygen Saturation: > 92% On Room Air Post Anesthesia Score: 10 Discharge Sedation Level of Care: Fast Track Phase II Post Sedation Plan On clinical assessment, the patient appears to have tolerated the sedation without complications. Patient is recovering as anticipated. Patient will continue to be monitored by nursing and may be discharged when sedation discharge criteria are met per below protocol. Upon Completions of procedure up to 15 minutes continue every 5 minute vital signs and the P.A.R. score; then discharge to a Phase I or Fast Track to Phase II per the following guidelines: * Discharge Patient to appropriate Phase II area if PAR is 8 or greater or return to pre- procedure baseline. The post - procedure orders will be as directed. * If PAR score is less than 8 or not return to pre-procedure baseline then patient will follow Phase I monitoring till PAR is reached for Phase II. The Phase I may be done in procedure room or may call to secure a Phase I area. * If naloxone or flumazenil are used for reversal, hold in Phase I for continued monitoring from when last reversal dose was given for a minimum of 60 minutes or longer pending the nurse and/or physician discretion of patient condition before discharge to Phase II. Please call the Sedation Physician to re-evaluate and complete post-note for discharge to Phase II area. Do NOT discharge from procedure sedation or Phase 1 until post- sedation evaluation note is complete by procedure /sedation MD Sedation Discharge Instructions to be given to the patient at discharge to home.
--- NOTE | 2024-05-21 15:16 | Endovascular Procedure Note ---
[facility] Endovascular Procedure Rpt Pre & Post Diagnosis Peripheral artery disease I identified the patient and participated in the time-out.: No Procedure Operation Date: 05/21/24 13:00 Actual Procedures p Angio Extremity Bilateral - Fabio Edward MD s Femoral Popliteal Balloon - Fabio Edward MD Surgeon Fabio Edward MD Plunger Shovel Operator Deibler Estimated Blood Loss 30 Findings See Below Abdominal aorta--no significant aneurysmal or stenotic disease Right lower extremity-- -Common iliaccalcified, ectatic, 30% proximal -External iliaccalcified, 40-50% proximal disease -Internal iliacoccluded at ostium -CFAcalcified, 40% proximal -PRU48-35% ostial, 90 % heavily calcified proximal, 80% mid -Poplitealcalcified, 70% distal stenosis before bifurcation -ATA40% ostial/proximal, remainder of vessel with mild diffuse disease and e xtends to the foot TPTcalcified, 95% mid -PTAheavily calcified, fills distally via collaterals from RISHABH via peroneal -Peronealfills distally via collaterals from RISHABH Left lower extremity-- -Common iliaccalcified, patent, 20-30% mid stenosis -External iliaccalcified, patent -Internal dmizd780% proximal occlusion -CFAcalcified, diffuse disease -SFAheavily calcified, severe 90% proximal/mid segment disease with very sluggish flow. Distal vessel partially fills via collaterals from profunda -Poplitealcalcified, diffuse 30% proximal/mid disease, 40% distal stenosis before bifurcation with RISHABH -ATA40% ostial stenosis, diffuse proximal to mid disease up to 60% in mid segment. Distal vessel extends into foot. DPA small and tapers in midfoot. Pedal arch intact TPT60% ostial -PTAwidely patent and extends into the foot. Gives off large lateral plantar artery without significant disease that extends to forefoot and ulcer bed -Peronealpatent to the ankle Anesthesia Type RN Sedation Radiation Exposure (mGv) Radiation (mGy): 427 Contrast Contrast: 105 Complications none Disposition Disposition: PCU Description of Procedure Right MEDICAL INSURANCE CLAIMS PROCESSOR access obtained under ultrasound guidance, short 5Fr sheath placed Abdominal aortogram and proximal left lower extremity angiogram performed with RIM catheter. Selective angiography with quick cross catheter placed in left SFA 6 Fr 65 cm destination sheath placed from right MEDICAL INSURANCE CLAIMS PROCESSOR to left SFA. SFA disease crossed with glide advantage wire and quick cross support catheter. Angioplasty of proximal to distal SFA with 6.0 balloon Entire length of SFA further dilated with shockwave intravascular lithotripsy (6.0 balloon, 270 pulses). Entire SFA treated with drug-eluting balloon, 6.0 x 220 Lutonix Post procedure good angiographic result, no evidence of dissection and brisk 3 vessel run-off. Contrast used: 105 Moderate sedation: [id number] Access closure: StarClose Summary: 1. Left lower extremity --heavily calcified diffuse mid LT SFA disease up to 90% with very sluggish flow and distal flow via collaterals. 40% distal popliteal 60% ostial TPT, 60% mid RISHABH. Three-vessel runoff to the foot. SUPERINTENDENT GENERAL widely patent into the foot and gives off large lateral plantar artery which extends to ulcer bed. Intact pedal arch. 2. Right lower extremity 40% MEDICAL INSURANCE CLAIMS PROCESSOR 60% ostial, 90% proximal, 80% distal SFA 70% distal popliteal Severe infrapopliteal plbrlku55% mid TPT, 40% ostial/proximal RISHABH, distal SUPERINTENDENT GENERAL/peroneal fills via collaterals 3. Successful angioplasty of proximal to distal left SFA with intravascular lithotripsy and drug-eluting balloon (6.0 x 220 Lutonix). Recommendations: Continue DAPT with ASA/Clopidogrel for 1 months Follow-up non-invasive vascular testing in 2 weeks. I attest to the content of the Intraoperative Record and any orders documented therein. Any exceptions are noted below. Vascular Charges Angiography/Venography Procedure 1: Angiography/Venography charges: [id number] Initial 3rd order or selective abd, pelvic, or LE branch Procedure 2: Angiography/Venography charges: [id number] Aortography, abd + b/l iliofem LE, catheter, radiological S&I Lower Extremity Interventions Procedure 1: Lower Extremity Intervention charges: [id number] Angioplasty, femoral, popliteal artery(s), unilateral (+ intravascluar lithotripsy) Additional Services Procedure 1: Additional Services Charges: 89024 Ultrasound guidance - vascular access Procedure 2: Additional Services Charges: 14586 Moderate sedation initial 15 min Procedure 3: Additional Services Charges: 98322 Moderate sedation, each additional 15 min
[2024-05-21] MEDS: HEPARIN (PORCINE) 1000 UNIT/ML 10 ML (CATH LAB USE ONLY) ONE (16:36)
[2024-05-21] MEDS: SODIUM CHLORIDE 0.9% 1,000 ML IV SCH (16:56)
--- NOTE | 2024-05-21 22:48 | Vascular Medicine ProgressNote ---
Date of Service May 21, 2024 Assessment & Plan (1) Peripheral arterial disease: Plan: 2. Diabetic left foot ulcer with osteomyelitis 3. CAD post RCA TALISHA 4. Permanent AF Had angiogram today. Was found to have severe LT SFA disease with sluggish downstream flow. Had successful intervention to LT SFA with intravascular lithotripsy/drug- eluting balloon. Final result showed brisk SFA flow and 3 vessel runoff to foot including direct in-line flow to ulcer bed via widely patent ACUTE CARE CLINICAL NURSE SPECIALIST/lateral plantar artery. No need for additional vascular intervention at this time. -- Started on clopidogrel for 1 month. On DAPT with ASA/Clopidogrel currently. Ok to hold plavix as need if going to OR. -- When DOAC restarted continue clopidogrel and can stop ASA -- Follow-up non-invasive vascular testing in 2-3 weeks in my office. -- Does have severe, complex RLE PAD. No plans for intervention unless CLI. Admission and Anticipated Discharge Date Admission Date: May 18, 2024 Subjective Feeling well post angiogram/endovascular intervention. Review of Systems Review of Systems: All systems reviewed & are unremarkable except as noted in HPI & below Physical Exam Physical Exam: General: Comfortable HEENT: Sclerae anicteric Lungs: Clear to auscultation bilaterally Cardiac: Irregular irregular, no murmurs Vascular: 2+ RT TELESALES CONSULTANT. No ecchymosis/hematoma Abdomen: Soft, nontender Extremities: Well perfused, 1+ left lower extremity edema extending above ankle. Chronic venous stasis changes to bilateral shins Neuro: Diminished distally to light touch Psych: Alert orient x3, normal affect and mood Results & Data Vital Signs (Past 12 Hours) Vital Signs Temp Pulse Pulse Resp BP BP BP 05/21/24 22:03 97.5 F L 122 H 18 111/71 05/21/24 19:31 113 H 18 131/85 05/21/24 15:13 99 H 18 121/93 05/21/24 14:58 96 H 18 135/85 05/21/24 13:02 61 15 142/77 H 05/21/24 11:00 98.1 F 104 H 18 123/76 Pulse Ox O2 Del Method 05/21/24 22:03 92 Room Air 05/21/24 19:31 95 Room Air 05/21/24 15:13 92 Room Air 05/21/24 14:58 95 Room Air 05/21/24 13:02 96 Room Air 05/21/24 11:00 93 Room Air PG Care Time/CCT Total # of Minutes Spent Total Time Spent with Patient: Total time spent is greater than 50% in coordination of care (as documented) at patient's floor/unit and/or counseling patient: Coding Level of Care Code 86484 SUB INP/OBS CARE 2/35MIN Diagnoses Peripheral arterial disease I73.9
--- NOTE | 2024-05-22 06:18 | Electrocardiogram Report ---
Test Reason : Blood Pressure : */* mmHG Vent. Rate : 120 BPM Atrial Rate : 267 BPM P-R Int : * ms QRS Dur : 104 ms QT Int : 326 ms P-R-T Axes : * 32 82 degrees QTcB Int : 460 ms Atrial flutter with variable A-V block with premature ventricular or aberrantly conducted complexes Inferior infarct (cited on or before 10-Mar-2018) Abnormal ECG When compared with ECG of 17-Apr-2024 08:59, Minimal criteria for Anterior infarct are no longer Present Confirmed by Alex Hammond ([id number]) on 05/22/2024 6:17:41 AM Referred By: REFERRED SELF Confirmed By: Alex Hammond
[2024-05-22 07:07] LABS: Hematocrit (blood only) 42.4 % (42.0-52.0); Hemoglobin 14.2 g/dl (14.0-18.0); Mean Corpuscular Hgb Conc 33.5 g/dL (32.0-36.0); Mean Corpuscular Volume 95.5 fL (80.0-100.0); Mean Platelet Volume 9.3 fL (9.4-12.4); Platelet Count 250 K/uL (130-400); RDW Coefficient of Variation 13.2 % (11.5-14.5); RDW Standard Deviation 46.9 fL (36.4-46.3); Red Blood Count 4.44 M/uL (4.70-6.10); White Blood Count 9.25 K/ul (4.8-10.8)
[2024-05-22 08:32] VITALS: RESP 19; TEMP 97.5
[2024-05-22 08:56] LABS: Calcium 9.1 mg/dl (8.6-10.3); Potassium 4.3 mmol/L (3.5-5.1)
[2024-05-22 09:02] LABS: BUN Creatinine Ratio 15.5 (10-20); Creatinine Clr Calc Pharmacy 80.4 ml/min; Est GFR (African American) 86.7 ml/min; Est GFR (Non-African American) 74.8 ml/min
[2024-05-22] MEDS: CLOPIDOGREL BISULFATE 75 MG TAB PO SCH (09:02)
[2024-05-22 10:49] VITALS: O2SAT 95
[2024-05-22] MEDS ORDERED: METOPROLOL SUCC 25MG EXT REL TAB PO SCH (11:10)
[2024-05-22] MEDS: METOPROLOL TARTRATE 1 MG/ML VIAL IV STA (11:53)
[2024-05-22] MEDS: VANCOMYCIN HCL 1,000 MG in SODIUM CHLORIDE 0.9% 250 ML IV SCH (12:33)
--- NOTE | 2024-05-22 12:53 | Pharmacy Report ---
Pharmacy PK ABX Note - Date of Service May 22, 2024 - Assessment and Plan Assessment 05/22: * Day # 5 of vancomycin + cefepime for left diabetic foot infection w/ osteo of 4th metatarsal head and possible early osteo of 3rd metatarsal head + base of proximal 4th toe. No growth to date noted in blcx's drawn this admission. Patient is s/p vascular intervention to LT SFA with intravascular lithotripsy/drug-eluting balloon 05/21. Podiatry is following. * Renal fxn stable. * Vanco level this AM = 20.2mcg/mL, indicating current vanco dose still highly likely to achieve targe AUC/IVA of 400-600. Will continue. * Duration of abx therapy unclear at this time, possibly 6 weeks if Podiatry does not perform debridement. 05/20: * Day # 3 of antimicrobial therapy * Preliminary BC reported no growth at 24 hours * Vancomycin level obtained this AM = 14.8 mcg/mL. This is predicted to achieve a AUC/IVA of 487 mg/L.hr. 69 year old M receiving Vancomycin and cefepime for treatment of recurrent infection of the left foot with concerns for possible osteomyelitis seen on x- ray today. * Patient was admitted last month for the same issue (received vancomycin and ceftriaxone and discharged on oral clindamycin)and has been following with wound care--wound was debrided and patient placed in immobilizing boot. Infection continued to progress * Wound cultures from 05/13/24 grew gonzales sensitive E.coli and Pseudomonas. Prior history of MRSA seen in toe culture in 2019. * No growth in blood cultures to date Plan Vancomycin * Continue current regimen: 1000 mg IV every 12 hours * This is predicted to achieve target AUC/IVA of 400-600 mg/L.hr * Predicted AUC at steady state: 487 mg/L.hr * Will repeat level in the next 48-72 hours if therapy is continued and/or change in patient clinical status Pharmacy will continue to follow and will adjust dose/frequency as necessary. Thank you.
--- NOTE | 2024-05-22 13:03 | Podiatry Progress Note ---
Date of Service May 22, 2024 Assessment & Plan (1) Cellulitis of left foot: Plan: Patient will be discharged today if possible to send home with dressing supplies of Allevyn foam for changing it in 2 days otherwise can leave dressing in place. Will have patient follow-up in my office on either Sunday or Sunday prior to surgery. And again is being set up for surgery on May 30Sunday. He is to put as little weight as possible on the left foot and to use the cam boot he was provided previously by the wound care center at all times. He was understanding he will be discharged on oral antibiotics which he is to continue. (2) Foot osteomyelitis: (3) Diabetic ulcer of left foot associated with diabetes mellitus due to underlying condition, with fat layer exposed: (4) Diabetic peripheral neuropathy associated with type 2 diabetes mellitus: Admission and Anticipated Discharge Date Admission Date: May 18, 2024 Subjective Patient notes he is feeling quite well after his procedure yesterday. Patient was seen at bedside today prior to being discharged. Patient will be discharged on oral antibiotics. We have set patient up for a fourth metatarsal head resection ulcer debridement and TheraSkin application surgery will be performed outpatient at the surgical center on May 30Sunday. Patient has improved significantly since being in the hospital and since undergoing his procedure. Now feels that he has appropriate blood supply to the ulceration to heal procedure. When I saw patient today he was feeling well and had no acute concerns. Additionally I had ordered patient a cam boot to be worn at all times. He actually already had 1 so may discontinue that second cam boot he when he needs 1. I have asked him to use it at all times when ambulating he should not walk barefoot and he should try to put as little weight as possible on the left foot. Physical Exam Skin: Dressing removed ulceration cleaned with a Hibiclens scrub. There was still some nonviable tissue present I think this will continue to improve with the recent endovascular procedure. And again patient will have a debridement performed next Sunday. New dressing applied consisting of Allevyn foam. Notably there was a bit of swelling which is to be expected after the endovascular procedure but otherwise foot was improved and stable. Results & Data Results & Data Vital Signs (Past 12 Hours) Vital Signs Temp Pulse Pulse Resp BP BP BP 05/22/24 12:31 103 H 105/67 09/26/24 11:53 134 H 109/84 05/22/24 10:45 36.4 C L 118 H 19 109/84 05/22/24 08:26 36.4 C L 133 H 19 106/72 05/22/24 06:00 102 H 05/22/24 03:15 37.0 C 104 H 18 128/92 Pulse Ox O2 Del Method 05/22/24 12:31 05/22/24 11:53 05/22/24 10:45 95 Room Air 05/22/24 08:26 94 Room Air 05/22/24 06:00 05/22/24 03:15 95 Room Air (3) Diabetic ulcer of left foot associated with diabetes mellitus due to underlying condition, with fat layer exposed Diabetic foot ulcer location: midfoot Qualified Code(s): E08.621 - Diabetes mellitus due to underlying condition with foot ulcer; L97.422 - Non-pressure chronic ulcer of left heel and midfoot with fat layer exposed
--- NOTE | 2024-05-22 13:47 | Discharge Summary ---
Date of Service May 22, 2024 Admission HPI Per Admitting Provider [place] is a 69-year-old male with a past medical history significant for peripheral arterial disease, DM type II, left diabetic foot wound, CAD status post cardiac cath with TALISHA placement to the RCA and 2016, hypertension, atrial fibrillation (on Eliquis), dyslipidemia, and tobacco abuse who presented to [facility] ED on 05/18/2024 due to concerns of progression of his known left diabetic foot wound. On arrival to the ED he was noted to be tachycardic with heart rate in the 140s, hypotensive 91/58, but otherwise stable. Labs were significant for a leukocytosis of 12 with neutrophil predo minance of 10, lactate within normal limits, Pro-Med 0.03. Chest x-ray was read as negative for acute findings. X-ray of the left foot was read as negative for acute trauma but did note relative lucency of the left fourth metatarsal head which corresponds to the site of marrow edema on MRI of April 25, 2024. This may reflect osteomyelitis. ECG showed atrial flutter with heart rate in the 120s. Prior to admission the patient was given 2 L normal saline, a dose of cefepime, and dose of vancomycin. Patient was sitting in bed in no acute distress at time of exam. Confirms that since his recent admission last month for his left foot infection he has followed up with his PCP and the wound care clinic. The wound care clinic did debride the chronic wound on the inferior aspect of the left foot and placed him in a immobilizing boot to try and offload pressure. States that he started a course of ciprofloxacin prescribed by his PCP yesterday, 05/17/2024. Overnight he states that his left foot infection significantly progressed including the erythema on the back of his left foot. Denies fever but did feel some chills. Otherwise denies recent chest pain, shortness of breath, cough, nausea/vomiting, abdominal pain, diarrhea, dysuria/hematuria, paresthesias, unilateral weakness, recent trauma. States that he took his a.m. medications including Eliquis, metoprolol, and his Lantus. Understands that he may need his left fourth toe amputated he indeed has osteomyelitis. Smoking approximately 1/2 pack of cigarettes daily and trying to continue to cut down with the use of nicotine patches. Understands he needs complete smoking cessation to avoid progression of his peripheral arterial disease and ongoing infections. Confirms he is a full code while his daughter to make medical decisions for him if he cannot make himself. Admission Exam (Per Admitting) Constitutional The patient is awake, alert and oriented 3, well developed and well nourished, normocephalic and atraumatic, lying in bed and in no acute distress. HEENT--PERRL, EOMI, mucous membranes and oropharynx mildly dry Neck--supple. No JVD. No bruits. Thyroid normal, trachea midline, no adenopathy. Heart--normal S1 and S2. No murmurs, rubs or gallops. Lungs--clear bilaterally, no respiratory distress, no accessory muscle use. Abdomen--normal bowel sounds and soft. Extremities--no cyanosis or clubbing. No edema. Dermatologic--normal skin turgor, normal color, no abnormal lymph nodes, no rash. Neurologic--cranial nerves II through XII grossly intact. Rheumatologic--normal range of motion. Psychiatric--normal affect. Discharge Data Consultations 05/18/24 10:30 ED Decision to Admit Stat 05/18/24 10:59 Consult Orthopedic Surgery Routine 05/19/24 11:12 Consult Vascular Surgery Routine 05/20/24 10:51 Consult Vascular Surgery Routine Procedures Performed Operation Date: 05/21/24 13:00 Actual Procedures p Angio Extremity Bilateral - Fabio Edward MD s Lithotripsy Fem/Pop - Fabio Edward MD Hospital Course (1) Sepsis: Now resolved -Blood cultures negative (2) Diabetic ulcer of left foot associated with diabetes mellitus due to underlying condition, with fat layer exposed: Was admitted last month for the same issue and underwent antibiotic treatment Has been following with the wound care, 1 visit thus far, wound was debrided and patient was placed in immobilizing boot Infection continues to progress, concerns for possible left fourth toe osteomyelitis on x-ray today, Also confirmed on MRI as acute osteomyelitis -Podiatry thinks that difficulty with wound healing is probably from his poor circulation due to PAD Wound cultures from 05/13/2024 growing pansensitive E. coli and Pseudomonas gonzales sensitive Will continue with cefepime and vancomycin for now, follow blood cultures Podiatry consulted -Vascular also consulted on account of poor wound healing from his PAD, however, per vascular, his SHREE has not changed since their last evaluation. No surgical plans for now -Podiatry not comfortable doing surgery on account of poor wound healing possibililty, plan is for a 2nd vascular opinion. Dr Edward consulted -He is now s/p Lower extremity angiogram and endovascular intervention -He will have his foot surgery on May 30 2024 outpatient -Will discharge him on PO Ciprofloxacin 500mg BID for 2 weeks (he still has his prescription from home ) (3) Permanent atrial fibrillation: Noted to be in atrial flutter on arrival with heart rate in the 140s Patient has known history of both atrial fibrillation and flutter, did have his a.m. doses of metoprolol and Eliquis prior to arrival Heart rate currently controlled after initial resuscitation in the ED Will continue home metoprolol hold Eliquis for now as he may need to go to the OR during this admission Continue to monitor on telemetry (4) Foot osteomyelitis: Osteomyelitis of the left foot As confirmed on MRI Podiatry has been consulted, foot surgery on May 30 2024 (5) Heart failure with reduced ejection fraction: Currently euvolemic on exam After patient completes his second liter NSS bolus will hold ongoing IV fluids for now as he is stable and nontoxic-appearing Hold Jardiance for now (6) Hypertension: Currently stable Will plan to continue home amlodipine (7) Coronary artery disease: Continue statin and aspirin (8) Cigarette smoker: Continue to encourage smoking cessation Continue full dose nicotine patch and as needed nicotine gum (9) Controlled diabetes mellitus type 2 with complications: Monitor BSG ACHS, goal is [id number] Hold metformin and dulaglutide for now Normally takes 24 units a.m. Lantus, had his a.m. dose today Will start 12 units Lantus twice daily starting tomorrow morning Start CF of 45 and CR 15 ACHS for now Adjust regimen as needed Plan d/c home Coding Level of Care Code 65313 INP/OBS DISCH >30 MIN Diagnoses Sepsis A41.9 Diabetic ulcer of left midfoot associated with diabetes mellitus due to underlying condition, with fat layer exposed E08.621; L97.422 Diabetic foot ulcer location: midfoot Permanent atrial fibrillation I48.21 Foot osteomyelitis M86.9 Heart failure with reduced ejection fraction I50.20 Primary hypertension I10 Hypertension type: primary hypertension Coronary artery disease I25.10 Cigarette smoker F17.210 Controlled type 2 diabetes mellitus with complication, with long-term current use of insulin E11.8; Z79.4 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
[2024-05-22 14:06] VITALS: BP 109/84; PULSE 118
== END 2024-05-22 15:07 | disposition home or self-care (01) | DRG 854 ==
LOC: ED 08:38 → SUATTDRO 10:34 → 2S 10:34 → 2E 05-21 07:14
PROC: CLB.AEB (2024-05-21 13:00)